=== PATIENT | female | born 1985 | race Caucasian/White ===

== ENCOUNTER 2025-02-03 12:20 | Outpatient (OUT) | payer OTHER, SELFPAY | END 2025-02-03 12:21 | disposition home or self-care (01) | LOC: PST 12:26 | PROVIDERS: PCP Family Medicine; Visit Provider Obstetrics & Gynecology | DX: Z01.818 Encounter for other preprocedural examination (principal); D21.9 Benign neoplasm of connective and other soft tissue, unspecified; N93.8 Other specified abnormal uterine and vaginal bleeding; R10.2 Pelvic and perineal pain ==

== ENCOUNTER 2025-02-04 10:51 | Day surgery (SDC) | payer OTHER, SELFPAY ==
[2025-02-03 13:08] VITALS: BP 130/74; PULSE 100; TEMP 36.9; O2SAT 98; BMI 31.9
[2025-02-04] VITALS (10 sets, daily range): BP systolic 106–133; BP diastolic 61–84; PULSE 74–98; TEMP 36.6–36.9; O2SAT 96–100; BMI 30.7
[2025-02-04 11:08] LABS: Basophils Percent Auto 0.2 % (0.2-2.0); Eosinophils Absolute Auto 0.1 10^3/uL (0.0-0.7); Eosinophils Percent Auto 0.4 % (0.9-7.0); Hematocrit 41.8 % (36.0-48.0); Hemoglobin 13.8 g/dL (12.0-16.0); Immature Granulocytes Abs Auto 0.05 10^3/uL (0.00-0.03); Immature Granulocytes Pct Auto 0.3 % (0.0-0.5); Lymphocytes Absolute Auto 3.5 10^3/uL (1.2-3.8); Lymphocytes Percent Auto 22.2 % (20.5-60.0); Mean Corpuscular Hemoglobin 28.8 pg (26.7-34.0); Mean Corpuscular Volume 87.1 fL (81.0-99.0); Monocytes Absolute Auto 0.8 10^3/uL (0.3-0.8); Neutrophils Absolute Auto 11.3 10^3/uL (1.4-6.5); Neutrophils Percent Auto 71.9 % (43.0-75.0); Platelet Count 376 10^3/uL (150-450); Red Cell Distribution Width 12.7 % (11.0-15.0); White Blood Count 15.8 10^3/uL (4.0-11.0)
[2025-02-04 11:34] LABS: HCG Quantitative <1 mIU/mL
[2025-02-04] MEDS: LACTATED RINGER'S SOLUTION 1,000 ML 50 ML IV (11:43)
--- NOTE | 2025-02-04 14:10 | P.ON_ITS ---
Brief Operative Note Date of procedure: 02/04/25 Pre-op diagnosis general: pelvic pain, aub Post-op diagnosis: same as pre-op Procedure: NAME OF PROCEDURE: [ D&c hysteroscopy] PROCEDURE: The patient was taken back to the Operating Room where she was prepped and draped in normal sterile fashion after being placed under general anesthesia without difficulty. She was also placed in the dorsal lithotomy position. A weighted speculum was placed in the patient?s vagina. The anterior lip of the cervix was identified and grasped with a single tooth tenaculum. The patient?s uterus was then sounded roughly to [? 8] cm. The patient was then gently dilated using Hegar dilators. The hysteroscope was passed through the patient?s cervix into the uterus. Both ostia were identified. fluffy appearing endometrium. No gross evidence of malignancy, no gross evidence of polyps or fibroids. gentle currettage was performed until a gritty texture was noted, The hysteroscope was then removed from the uterus. The endometrial curettings were sent out to pathology. The single tooth tenaculum was then removed from the patient's anterior lip of the cervix where excellent hemostasis was noted. All instruments were removed from the patient?s vagina. A sponge stick was placed into the patient's vagina. Attention was turned to the patient's abdomen, where a small umbilical incision was made. The fascia was tented using Tavon clamps and the fascia was entered sharply. Confirmation of intraabdominal placement of the 10 mm port was confirmed under direct visualization using a laparoscope. The patient's abdomen was then insufflated using CO2 gas with approximately 4 liters. A second port was placed left laterally, this was done under direct visualization with a 5 mm port. Survey of the patient's abdomen demonstrated normal liver and gallbladder. Survey of the patient's pelvic anatomy demonstrated normal appearing rt and lt ovary and tubes as well as normal appearing uterus except for a large posterior fibroid and the uterocervical junction. No endometrial implants could be noted, no evidence of any pelvic disease was seen, normal appearing pelvic cavity. All instruments were removed from the patient's abdomen. The patient's abdomen was deinsufflated of CO2 gas. The patient tolerated the procedure well. Sponge stick was removed from the patient's vagina. The patient's infraumbilical fascia was closed using #0 Vicryl on a GI needle. The patient's skin was closed laterally and infraumbilically using 4-0 Vicryl. The patient tolerated the procedure well. Sponge, lap and needle counts were correct x 2. The patient was taken to Recovery Room in stable condition. Anesthesia: RAYMOND Surgeon: Rik Ashley [employer] Laboratory Assistant: Mona Bergeron Estimated blood loss (mL): 5 Pathology: other (endometrial currettage) Condition: stable Disposition: PACU Urinary Catheter Management Urinary Catheter Management Urethral: Cath placed during this visit: no
[2025-02-04] MEDS: LACTATED RINGER'S SOLUTION 1,000 ML 150 ML IV (14:46)
[2025-02-04] MEDS: HYDROCODONE/ACET 5-325 MG TABLET 1 TAB PO (15:47)
--- NOTE | 2025-02-04 15:49 | PC.NURSE ---
1547:pt rates pain 4/10,PRN pain pill given at this time.
--- NOTE | 2025-02-04 15:50 | PC.NURSE ---
1535: pt ambulates to bathroom,voids without difficulty.
== END 2025-02-04 16:30 | disposition home or self-care (01) ==
PROVIDERS: PCP Family Medicine; Visit Provider Obstetrics & Gynecology
PROC: (CPT 840; principal; 2025-02-04 12:30)
DX: R10.2 Pelvic and perineal pain (principal); N93.8 Other specified abnormal uterine and vaginal bleeding; D21.9 Benign neoplasm of connective and other soft tissue, unspecified; N93.9 Abnormal uterine and vaginal bleeding, unspecified; Z90.49 Acquired absence of other specified parts of digestive tract
CPT/HCPCS: 49320; 58558; 36415; 84702; 85025; 88305; J0690; J1100; J1200; J1885; J2250; J2405; J2704; J3010

== ENCOUNTER 2025-02-21 14:21 | Emergency (ER) | payer OTHER, SELFPAY ==
[2025-02-21 14:24] VITALS: BP 124/78; PULSE 90; TEMP 36.7; O2SAT 98; BMI 37.8
--- OUTSIDE RECORDS SUMMARY | 2025-02-21 14:31 | XMS_ITS | CCD ---
Author Organization [facility] ion [facility] Care Team Providers Care Thread Puller Name Role Phone Maki Shaffer Unavailable Unavailable Maki Shaffer Unavailable Unavailable TEDDY DALEEN Unavailable Unavailable TARIQ Dale Primary Care Provider MD Isaias Stoner Attending Provider MD Summer Bolden Primary Care Provider Summer Bolden MD Primary Care Provider Summer Bolden Primary Care Unavailable Prateek Mckeon Admitting Unavailable Prateek Mckeon Attending Unavailable YuanSummer burns Primary Care Unavailable Prateek Mckeon Attending Unavailable Geovanny Feliciano Admitting Unavailable Geovanny Feliciano Attending Unavailable YuanSummer Primary Care [facility]available [facility] Yuan, Summer Dru Primary Care Unavailable Melo Hitchcock Admitting Unavaila ble Summer Bolden Primary Care Unavailable JANINE Carrion Attending Unavailable Rik Ashley Admitting Unavailable Rik Ashley Attending Unavailable Isaias Stoner Attending Unavailable Isaias Stoner Admitting Unavailable Marylu Dale Primary Care Unavailable YuanSummer Primary Care Unavailable Isaias Stoner Admitting Unavailable Isaias Stoner Attending Unavailable Rik Ashley DO Attending Provider James Stinson Unavailable Unavailable YUAN SUMMER Dru Attending Unavailable YUAN SUMMER Dru Attending Unavailable CARIE BENEDICT Attending Unavailable JAMES JAMES Attending Unavailable JAMES JAMES Attending Unavailable YING SHELTON Attending Unavailable MICHEAL MATT Attending Unavailable YOLI URENA Attending Unavailable MICHEAL MATT Referring Unavailable LUDWIG DIEGO Attending Unavailable MATT MICHEAL R Referring Unavailable ROMELYOLI Attending Unavailable MATT, MICHEAL R Referring Unavailable RIK ASHLEY Attending Unavailable ARLEEN, JAMES Attending Unavailable CARLOS, PILAR Attending Unavailable CARLOS, PILAR Attending Unavailable BRANDIE, LUDWIG Attending Unavailable MATT, MICHEAL R Referring Unavailable TATTERSALL, LUDWIG Attending Unavailable MATT, MICHEAL R Referring Unavailable TATTERSALL, LUDWIG Attending Unavailable MATT, MICHEAL R Referring Unavailable ROMEL, YOLI Attending Unavailable MATT, MICHEAL R Referring Unavailable ROMEL, YOIL Attending Unavailable TATTERSTEDDY, LUDWIG Attending Unavailable MATT, MICHEAL R Referring Unavailable FLORCARIE Denise Attending Unavailable ARLEEN, JAMES Attending Unavailable CLEO CARIE L Referring Unavailable Medications Current Medications Medication Drug Class(es) Dates Sig (Normalized) Sig (Original) acetaminophen 500 mg oral tablet (3 sources) Start: 12-06-2017 take 2 tablets by mouth every six hours as needed for pain Acetaminophen (Tylenol Extra Strength) 500 mg tablet Active 1000 MG PO Q6H as needed for fever or pain December 06, 2017 1:00am 24 hr buPROPion hydrochloride 300 mg extended release oral tablet (20 sources) Aminoketone Start: 12-30-2024 End: 01-06-2025 take 1 tablet by mouth once daily buPROPion XL (Wellbutrin XL) 150 MG 24 hr tablet Indications: Episode of recurrent major depressive disorder, unspecified depression episode severity (CMS/HCC) , Anxiety Take 1 tablet (150 mg) by mouth Daily for 7 days Do not crush, chew, or split.150 mg po qd x 1 week then 300 mg poqd 7 tablet 12/30/2024 Active Start: 12-30-2024 End: 12-30-2025 take 1 tablet by mouth once daily buPROPion XL (Wellbutrin XL) 300 MG 24 hr tablet Indications: Episode of recurrent major depressive disorder, unspecified depression episode severity (CMS/HCC) , Anxiety Take 1 tablet (300 mg) by mouth Daily Do not crush, chew, or split. 30 tablet 11 12/30/2024 12/30/2025 Active cephalexin 500 mg oral tablet (6 sources) Cephalosporin Antibacterial Start: 02-02-2025 End: 02-07-2025 cephalexin (Keftab) 500 MG tablet 500 mg 02/02/2025 02/07/2025 Active Chaste Tree (VITEX EXTRACT PO) (3 sources) End: 12-16-2024 Chaste Tree (VITEX EXTRACT PO) Take 400 mg by mouth 12/16/2024 Discontinued (Therapy completed) Chaste Tree (VIT EX EXTRACT PO) Take 400 mg by mouth Active cyclobenzaprine hydrochloride 10 mg oral tablet (3 sources) Muscle Relaxant Start: 09-24-2024 End: 12-30-2024 cyclobenzaprine (Flexeril) 10 MG tablet 09/24/2024 12/30/2024 Discontinued escitalopram 20 mg oral tablet (20 sources) Serotonin Reuptake Inhibitor Start: 12-30-2024 End: 03-30-2025 take 1 tablet by mouth once daily escitalopram (Lexapro) 20 MG tablet Indications: Episode of recurrent major depressive disorder, unspecified depression episode severity (CMS/HCC) , Anxiety Take 1 tablet (20 mg) by mouth Daily 30 tablet 2 12/30/2024 03/30/2025 Active ibuprofen 800 mg oral tablet (3 sources) Nonsteroidal Anti-inflammatory Drug Start: 12-06-2017 take 1 tablet by mouth three times daily as needed for pain Ibuprofen 800 mg tablet Active 800 MG PO Three times daily as needed for pain December 06, 2017 1:00am metroNIDAZOLE 500 mg oral tablet (6 sources) Nitroimidazole Antimicrobial Start: 02-02-2025 End: 02-09-2025 metroNIDAZOLE (Flagyl) 500 MG tablet 500 mg 02/02/2025 02/09/2025 Active nitrofurantoin, macrocrystals 25 mg / nitrofurantoin, monohydrate 75 mg oral capsule (6 sources) Nitrofuran Antibacterial Start: 02-03-2025 End: 02-10-2025 take 1 capsule by mouth in the morning nitrofurantoin, macrocrystal-monohy drate, (Macrobid) 100 MG capsule Indications: Acute cystitis without hematuria Take 1 capsule (100 mg) by mouth in the morning and 1 capsule (100 mg) before bedtime. Do all this for 7 days. 14 capsule 02/03/2025 02/10/2025 Active omeprazole 40 mg delayed release oral capsule (3 sources) Proton Pump Inhibitor Start: 12-04-2023 End: 12-16-2024 take 1 capsule by mouth before mealtime omeprazole (PriLOSEC) [address] capsule Indications: Heartburn Take 1 capsule (40 mg) by mouth in the morning. Take before meals. Do not crush or chew. . 30 capsule 1 12/04/2023 12/16/2024 Discontinued (Therapy completed) PARoxetine hydrochloride 40 mg oral tablet (11 sources) Serotonin Reuptake Inhibitor Start: 11-28-2023 End: 12-30-2024 take 1 tablet by mouth once daily in the morning PARoxetine (Paxil) 40 MG tablet Indications: Adjustment disorder with mixed anxiety and depressed mood (CMS/HCC) Take 1 tablet (40 mg) by mouth in the morning. 40 mg 1 (one) time each day at the same time.. 90 tablet 1 11/28/2023 12/30/2024 Discontinued (Therapy completed) Start: 12-06-2017 take 1 tablet by carson th once daily Paroxetine Hcl (Paxil) 20 mg Tablet Active 20 MG PO Daily December 06, 2017 1:00am predniSONE 20 mg oral tablet (9 sources) Start: 02-03-2025 End: 02-08-2025 take 1 tablet by mouth in the morning predniSONE (Deltasone) 20 MG tablet Indications: Allergic reaction, initial encounter Take 1 tablet (20 mg) by mouth in the morning and 1 tablet (20 mg) before bedtime. Do all this for 5 days. 10 tablet 02/03/2025 02/08/2025 Active Start: 09-24-2024 End: 12-30-2024 predniSONE (Deltasone) 20 MG tablet 09/24/2024 12/30/2024 Discontinued (Therapy completed) Problems Active Problems Problem Classification Problem Date Documented Da te Episodic/Chronic Abdominal pain (4 sources) Pain in female pelvis; Translations: [Pelvic and perineal pain] 12-16-2024 Episodic Acute and chronic tonsillitis (20 sources) Oropharyngeal lesion; Translations: [Chronic disease of tonsils and adenoids, unspecified] Onset: 04-09-2023 04-09-2023 Chronic Adjustment disorders (20 sources) Adjustment disorder with mixed anxiety and depressed mood; Translations: [Adjustment disorder with mixed anxiety and depressed mood] Onset: 04-09-2023 04-09-2023 Chronic Allergic reactions (2 sources) Allergic reaction; Translations: [Allergy, unspecified, initial encounter] 02-03-2025 Episodic Anxiety disorders (20 sources) Obsessional thoughts; Translations: [Mixed obsessional thoughts and acts] Onset: 04-09-2023 04-09-2023 Chronic Inflammatory diseases of female pelvic organs (2 sources) Inflammation of cervix; Translations: [Inflammatory disease of cervix uteri] 02-03-2025 Episodic Malaise and fatigue (20 sources) Chronic fatigue syndrome; Translations: [Chronic fatigue syndrome] Onset: 04-09-2023 04-09-2023 Chronic Menstrual disorders (2 sources) Irregular periods; Translations: [Irregular menstruation, unspecified] 12-16-2024 Chronic Mood disorders (20 sources) Depressive disorder; Translations: [Other specified depressive episodes] Onset: 04-09-2023 12-16-2024 Chronic Nutritional deficiencies (20 sources) Vitamin D deficiency; Translations: [Vitamin D deficiency, unspecified] Onset: 04-09-2023 04-09-2023 Chronic Other acquired deformities (20 sources) Contracture of joint of left ankle; Translations: [Contracture, left ankle] Onset: 04-09-2023 04-09-2023 Chronic Other acquired deformities (20 sources) Cervical kyphosis; Translations: [Unspecified kyphosis, cervical region] Onset: 04-09-2023 04-09-2023 Chronic Other and unspecified benign neoplasm (2 sources) Leiomyoma; Translations: [Benign neoplasm of connective and other soft tissue, unspecified] 02-03-2025 Episodic Other female genital disorders (2 sources) Abnormal uterine bleeding; Translations: [Other specified abnormal uterine and vaginal bleeding] 02-03-2025 Chronic Other gastrointestinal disorders (20 sources) Irritable bowel syndrome; Translations: [Irritable bowel syndrome without diarrhea] Onset: 07-25-2023 07-25-2023 Chronic Other lower respiratory disease (2 sources) Cough; Translations: [Acute cough] 01-06-2025 Episodic Other lower respiratory disease (2 sources) Rib pain; Translations: [Pleurodynia] 2025 Episodic Other screening for suspected conditions (not mental disorders or infectious disease) (20 sources) Ultrasound scan abnormal; Translations: [Abnormal findings on diagnostic imaging of other specified body structures] Onset: 04-09-2023 04-09-2023 Chronic Other screening for suspected conditions (not mental disorders or infectious disease) (2 sources) Patient encounter status; Translations: [Encounter for screening mammogram for malignant neoplasm of breast] 01-06-2025 Episodic Other upper respiratory infections (3 sources) Viral upper respiratory tract infection; Translations: [Acute upper respiratory infection, unspecified] 11-13-2023 Episodic Comment on above: Problem List clean-u p per request of Phys. EHR Cmte Residual codes; unclassified (20 sources) Hypersomnia; Translations: [Hypersomnia, unspecified] Onset: 04-09-2023 04-09-2023 Chronic Spondylosis; intervertebral disc disorders; other back problems (20 sources) Cervical spondylosis without myelopathy; Translations: [Spondylosis without myelopathy or radiculopathy, cervical region] Onset: 12-14-2020 07-25-2023 Chronic Urinary tract infections (4 sources) Acute cystitis; Translations: [Acute cystitis without hematuria] 02-03-2025 Episodic Past or Other Problems Problem Classification Problem Date Documented Da te Episodic/Chronic Immunizations and screening for infectious disease (1 source) Raised antibody titer; Translations: [Raised antibody titer] Onset: 05-06-2024 Episodic Malaise and fatigue (20 sources) Fatigue; Translations: [Other fatigue] Onset: 04-09-2023 04-09-2023 Episodic Mood disorders (20 sources) Mood disorders Onset: 12-30-2024 12-30-2024 Other connective tissue disease (20 sources) Ganglion of foot; Translations: [Ganglion, unspecified ankle and foot] Onset: 04-09-2023 04-09-2023 Episodic Other liver diseases (20 sources) Elevated levels of transaminase & lactic acid dehydrogenase; Translations: [Elevated levels of transaminase & lactic acid dehydrogenase] Onset: 06-05-2017 07-25-2023 Episodic Other nutritional; endocrine; and metabolic disorders (20 sources) Loss of appetite; Translations: [Anorexia] Onset: 04-09-2023 04-09-2023 Episodic Spondylosis; intervertebral disc disorders; other back problems (20 sources) Neck pain; Translations: [Cervicalgia] Onset: 03-26-2024 03-26-2024 Episodic Results Test Name Value Interpretation Reference Range Facility Urinalysis macro (dipstick) panel (U)on 2025 Bilirubin, UA Negative Negative - 4(70) +++ mg/dL [facility] Blood, UA Positive Negative - 50 Ponce/mcL [facility] Comment on above: trace Clarity, UA Clear [facility] Color, UA Yellow [facility] Glucose, UA Negative Negative - 1999(110) ++++ mg/dL [facility] Interpretation and review of laboratory results Abnormal [facility] Ketones, UA Negative Negative - 160(16) ++++ mg/dL [facility] Leukocytes, UA Negative Negative - 500+++ Hunter/mcL [facility] Nitrite, UA Negative Negative - Positive [facility] pH, UA 8.5 5 - 9 [facility] Protein, UA Trace Negative - 1999(20) ++++ mg/dL [facility] Spec Grav, UA 1.015 1 - 1.03 [facility] Urobilinogen, UA 0.2 0.2 - 12 mg/dL [facility] Pathology study report docum entOrdered By: Henok Walden on 02-08-2025 Pathology study [facility] Other C Urineon 02-05-2025 C Urine Mixed skin, or urogenital pascale. Clinically insignificant Normal [facility] Comment on above: Performed By: #### [id number] #### [facility] (DEFAULT) [address] [place] [address] Coding Summaryon 02-05-2025 Coding Summary HTMLBase 64 TegosvksYCy3qNh+PGh lYWQ+VG9GAFHlQ02wxN RbfA7dH3FVNSfTCneoV MQBTIaKUhOuaiZqER5o aXNjZXJu IC8+EN4gXLWkJehtgSZ iu3J7mKV2K01ran7xCN vzlRC1JDNdXjLnqtngv 1iuwPp3DWgjGafbRhRg OBQokJ53JVB9pN98Ev8 3gDGqoWOuk4xklXa8Lb QqLTQxPZN0rWelGWvgj 4BlDJBqZ94mdJUzq8D3 IGNvbGxhcHNlOyBlbXB 2mQ6zFJjhacmhz0fqpe pvQqw6vo00oBXih2U1e EV9B4DgycG2BNOanKBb PnwlsPDCzZ7erkupg2n vxmwaSvIhJGMxVGv2RZ z7IVDehDcbRaWaVV25U GQ5RYCksbGjG2ZkSLMr pQqrLrQ2s9V7Ej0PW9A JGmluI6JJOPUVFTemjO Q+IQ09zr02T1BwOwwxX lq1YSKgWVD9tVC8tS5r FFFyAZgmo9K3mFX9D3Y tfxWnrx4cj0pvLSJaVH moU16eyVBnd9F1NLVgm ZR1QJEseRzoTgCfmJ12 Oyc+SYCffPbrw7NaGgt ro7fem0kaxLp2YcptNI NlghEwwZftAGH7f9AlX k7uORRnzZN4kWY6mX2a OqEgDmW5OZmqY949ZvV efYErAmuqQ56jA9KfeD A+AVKfYsh6VQOycLgqM H4dA8AwKGPatiscjHMl iFugLK8jIGOwggwoUKG mbK2zRRZbV3r7VqQvVq Y3NUpbC5AvJMHrbgwtE b70cF7wNoVlQzB3CYnk A1WxpfL2VCNdiNAgUVm qIGN3L71dr9O0SAWkGG BfSXX9mCA3gH6vtXxwu jogbGVmdDsgdmVydGlj KIdeTGxcE855GKQmkUh nPkNvZGluZyBEYXRlOi AgMDMvMDcvMjAyNTwvd GQ+WJZqOXU6zXtyEGCx hJPfFOupIf1ewQtiyGg rHR4qYCHklodiQBBefW 1cCWDmsDAxjWeaUA9yX ZIhiojgl065WjEsYFT4 EXFvbVKqY9VgkT1mMpM xHSUhZSVyK5FebMXzUI ezH901EBvqFxG4UKQds pUyU0ErGTOruWafMmV5 r4O6Wu7Dm2RmvdwxI4C vjTWjCpIcIccmBCb3S5 RkPjwvdHI+NY94WPEaH A30EKn1NRY0iAgmVOja MUEaM2KrvO4xGkVmBOR kZGRkOyc+PHRhYmxlIH dpZHRoPScxMDAlJyBzd QueGS2mLv6bLGNbZTWf nYjtxTEjIcArp2dhTOA vPKtgXB9zrYfgO3YyvN D8SDEju5q4Yg28B76jO 3JvdXA+KSInvAQ8xDN4 bZ5yZkEnFjJ6CYtlT57 1ZlVtbFCkZmnyc8lzv1 rzjFu6BrN5QHSmxhTqa NczVPP5z4OoHa52K13z IHdpZHRoPSIxNSUiIHZ qtUuoxy6erR5qQv8+PG IezIN4sBL2cI7rTuLdH dN2JLdmS150CaAlkOGu Jzjcn7pno0sliHj1TwU jZYFnkxSejMtxACV3g5 QmEd85J2JafHybc3AyL zo6vs08mXLzz7P3rOY2 X1XjTNRkllmpvPItnYr nYO2vGQShlmgyURTsiN 3jKZQaV9s4AuQzTjG8J PjcU1ErjzD2WLPhtCNp VZUhqLIGpV4zpwuvd5r eninxQhStMTFiGJe9VO f4MPInfJprIxMaWBR0X jJ2EUT2xQLmhR8qjNfx cxepmE0qFvg+ZBC1bKD iyJDUYH5wJxljvKV+PH WaCHH6xRevAUdjUNPew A5hRZSgM3w8FlPdMaJ0 YQzaJ3QgobI9NZXrjNU nEOMjpLWRgF3ivxuro3 xtlxewVrDbXGLvJUk6M Qc5FMDgzOqzXrTiOKK5 EtW8XOF8qNUdeV3seTd mchdleJ9kHww+QmlydG kfYNO7ZYr1L4OxHot5X ULllHphPY9vhOFzVOss Sk3fkEkskGjoVS2hDEX hwpwvp896FxXvz8zwXG XsaRPnGWwkMGV5J38lj 1D5TFPaAGTtJGU5eOA3 eX8iyHspjsqxzXWnsKi gdmVydGljYWwtYWxpZ2 52WHXkmGjcXgYlMLq0A 4RrZbd3PKNkkBvgRO5o pOQjMZurSe1ftOcwrQi rAL5mANWtlyrho924Lc Cks2ciAXZdsERtZItzU BU6C21mj2W7RZXoWBGh PDF2uPI3eB5iyQdouij gbGVmdDsgdmVydGljYW rdKUvtG238OUPjdLhmR kEvzEk3K0ItVog2KEEt kLehGH4isHXnEKzlNe1 ytSyemYeeNC9bAVQcre sqr671RtUin0npQVIzh ADxECpfXCO0I69ug3Y9 QUYhSRWrIGZ9yGW2dX7 hbGlnbjogbGVmdDsgdm AbrAngKKghEEguG366D HRvcDsnPlBhdGllbnQg OFiyBCc2K6VvTuvnhAL +WJ55UGEcYQ08sVOduV Rek3jphMh7YrQiEDEqB QO6qRnlUQaub9WzSXUa G46ebOKmp5M0FMBhzQe xdRJvIiJtyPE9qB5yJU fddxlvk8yilnhiZxkvb 6qoyk45tA92O38xPWdk ZHRoPSIzMCUiIHZhbGl aqm7gzY4iPj2+PGNvbC Y6qVC3vS9sVEKwOeY5I IlrE707XyIaxSZrIwxl r5wck2jitPm0LwM8PGQ aghNoxUuzJKJ8r9RaRl 50L86vOResOXBkOWPcV MZkPZWnqPadoh7inB8m Ii8+PJUdvKV2oEX0qD7 wZtUaQjB2SFckG926Ce VdsJUpBmzmW41qI9Gka XA+RJMmArq1YARnnQty RN0qwWDwBDulEb3kQJC 8ReTmRwEkQYrxC6WjOB LhcdwhzqzgcBS9UENcZ CKjlR42Ih7mvFqxAXJc jLYBvP2ocgsjw4valgm pAaTxHEEiVDg6INj1JG MqeLfbJrFgPPN7XqL4J AL7mTSerL6ukRzmbsmv eO6wC0OgDBRgojaaPa1 2eC5yEaDsWtX3JXrnUh c+A6cNEGHXSLTCBIcXB 5MFFKPYXmdIDIbOPW64 JP45tUUjt1D2aSE4M3O kECCyysbjeprrwRN1DE PvZCProK51xRUqIDmqC y6uv2O8h407XQWwBUMj zG13Za7rfDsyFGByoKY PcS7fnecge0hkyzayHx DbCAStPQa0WFy0ZOZmk VdbOtVgSJM6SuJ7VIO7 xFXxrA0ovRssazvtyJ8 wOyc+KQEqYVVrVWb3Nw wvdGQ+XPUdEVY7zKthG OigJYZzlS7oNNMcU7t7 RwDkSsJ7PZrfC5ZwGQO sosnaVo31mV5qTuUbZd I5OUioM0WoinR0WGJle CZbOLfrUTL9L18ds8K3 YIPwTOAoZJO0yQH4jY1 hbGlnbjogbGVmdDsgdm AupVkkQIwfILljL337O IKeyOkiMgO0TUthOKJv UY72HP78kIKbl5L2dOG 8S8NaXLMbknrcdsjneL O5JGXjCIFpwA96sWAkD EhwTa9ks6E8j879ZVOz MODwrN86On7jkLfdHYZ aoVZApO3pathdv6tcdd gdXfHrRSBzFZa5CEl8Q GDksVdvHxYpYGS8XdG0 UMP4hPCeiY9qvYrafnr ymO2tJey+RkVNQUxFPC 47CJ02jDOnu3M7ySQ1E 1EpTCSpczhtipnoeSB2 PEYbTZPltV71pMQeMHy iWw1bc5Q2o198SIYwFL EwrX90Ry9ztXtsSGBzl ENGsI7cgqlnu7gcqdgq AnRsHSKoPJd1GDm5JCW abSahJnTmVWM0EyR0AM S8tUHgzR5yaVbmhpkrq G9wOyc+WQ4pvrtevaK5 FG24WP20S8TlVrkybOS ibGU+PHRhYmxlIHdpZH RoPScxMDAlJyBzdHlsZ N5aGm0yMWFyEEBnbTrj wTFkJhKvt0frPQRmQSn dXC2nzFokV1HncVW4LL Fox3d1Oj23R80fX9Xiv XA+JSFmtAH6iFC1wA9k IoEjNvU0UIncL023QxI ejBQgFvmpg8nzq1fzfP k9YyKoBFOqleCbtJotZ EZ8l7JfLi40P21oUIgw ZHRoPSIyMCUiIHZhbGl jfk3mdY3vMs0+PGNvbC Q2hHB9yY5zCqDoJsG9M CxuP909QtTpuTYbHrst M97nG4VrtCY+PHRyPjx 4WCIwxRkaVT7lyJSzUU iaGe0cQLZ4SsZeCkHnX NccK6UiVZPgvzbdohbd iOX9BKAjCFRlpT83Oh8 hlVqyTn5rGMYgKVM3PW JczYCfX1IobC8rQrBuZ QXnJKVkD8FekZWhRQmh P214MOtdTuV2FWVwgsH iX5WaGODgiHviAjG6c3 G8Ak7XlCmogMBgAH9rH sTnCZm9S6HeEpa1FRWg dFxzXP8pdFRpSKdePc9 bfQqjkQizVW7jPXSxwq enx114LwFgp4aiXJMub YCjVRkuVQO9V12zv8K7 BFOmFTVrZQX4kKD9wG6 hbGlnbjogbGVmdDsgdm DtzHnrIDwsTIfrW070U WKgqQoxQlJWTbr0L0Pl Mfe7YECkyScxDR3mbQX gNAmyOf2ohJyicPzvOE 4dXWKemfpxu322VjAin 8eeIDIkiXRaOHeoFUJ8 D57zf4X7OPIuLVZiLSU 1lJX0dS4zuWtteqkiaT VmdDsgdmVydGljYWwtY QjyY901VYFdeYozXh6Q Hsx4Q3ZhBrl4YIOiuYd qXT4ehNAqDDmrYp8tsC fhxIiuFJ2uSICingbbu 645MiHax4zmZFUumHKg YMphAQE0P50bp0Y7FJO pXVBhOVU9qGE4lC6pgW lnbjogbGVmdDsgdmVyd VchRZkhTAgmS195YYVg cDsnPlBheWVyOjwvdGQ +IM50ol96M1BgPwihWi k3IYAsCJT8xFX7tM0rR RWgMOqwg9P5nCJ6K9Yo cmR (more content not included)... [facility] Coding Summary HTMLBase 64 MyyxtfsnJEz3pPu+PGh lYWQ+YR6VPVSuX40reQ ElwH2dB9BQISaGHnxqN ZTSFGtTGsMuyiXmVB1x aXNjZXJu IC8+IE3yZDSfNzbxsJD fk2Y2iPM8J27ouw5pGA jlrWZ3IHXyUaXlkrhjn 0kaaKv4RGxhUpupDwNb RMFljC26CJI1pP91Cr8 6iKVwdMMnz7kptNw2Qw TzOXMuVAU6qPlcHUeyr 2QaVCYwP62gbYDbc1G7 IGNvbGxhcHNlOyBlbXB 2vT5jPBbxyyygo5izaz tmCsv3mj17sQEll5J2q EM1R4UgbzP7YHCwbQHp AiacoSHKpZ9wynvdz6c pgvccDcObRUCvMGg6BM d2GMPeqCgeNzAkXG16V NS0FHCsxuUoL8BgTROi uBysQqM8n7T1Ig6YL8O HVblgF6UPGLBSYPdwvW Q+HE52av84R1KuWtymN tv3XASrNFZ4qBL1cT9l UERxYNqxe6E1hLV7H2C qcxKgzh2lf7msVAJfVP bbK62imYCwq0Q5YEOun UK1LPJibTeiNuFmnR75 Oyc+ZIRkmLokw2JqVcu gp2vly3vnsFb7ZyfeOO TsbqSxmPchXCD7e4QcG p5lPKHkgDZ3tSP1xX0z VeBzWhL2DWydN036DhF ygKHaFkesQ87pG1FkdF A+DNYyMkf5YDPanKwoW Y4fY9LbGPHrxqhyrQNn lMczJS5bIRWtuvkfWKK nuR3kWYVpO0f2SoEeEx A9FKdbB5WiDINtccswV n41gX6cQnLzFsG2ILag L1AmjlO6RNGclITkXYu uIXH1E86gw9Q7KTTsLB JeBYK3rMH0sO7lpOzvy jogbGVmdDsgdmVydGlj ESwgPUutC923UOIexUg nPkNvZGluZyBEYXRlOi AgMDMvMDcvMjAyNTwvd GQ+LDTyDKT3jYxkIHLa yBYbYGuiXu4umHpedFf cIT0lPZNbnwwtDOFozS 3cVZKxqLVzdIkcNC9lP AHfzxauc463SyMxYPY0 SKHikKJfN9QxlT8gAmB qQDQzRWFfT6WyhVLjUX rvZ263KKjyBcS1SUZzz qIjZ7LwYDKyoNpeXaH9 h5Y0Ii8Ul7HomflrS6B qfELyUiVbHtcjEJr9O1 RkPjwvdHI+EB57HHDwI L01AFm4FTH5oFkqBDrz GNSqK4NviD9zYmDsXXN kZGRkOyc+PHRhYmxlIH dpZHRoPScxMDAlJyBzd IciYT6iEc4nVKDoZKXd cIcooHPfMrZav2opCLW rABsfFC5drIotN1OgyS C7LILin9f2Cn26X03lM 3JvdXA+XLPcsDY0fRL6 iC3zObXyBgY7OVyuK25 7KoBceQGaYcjqx4ohw3 hikYd5EzW9VYFfhwIyz PypMSL1s1LuTq57H68j IHdpZHRoPSIxNSUiIHZ hqBtvwf4shW1jTr9+PG EerJC3eNU6pL0nPuWfA jO2WIfbA474GjYqsVEp Krhae0klh3objIv8FaE jXFXqxbKliVreAPQ0x5 RuFq28I6UxnTnyc5UsN hf4lf36wYPjm1B0nOI3 J0XrSVAvgoeuoQGzjOb vTS3uZBBhlmavYAUlgD 8eVTKaH2a9XbOjGlA3J AlpE3RkpnQ3XUDinBSc RFOtyVPCkM5reaivg4a bjbqiRkKqJJJbKPo6ZK h8ZHCnsXweIoHlRLJ0I dJ2BLD3eESgtN0epRni taemzI4fZjp+ZIO7dZD qgOOISG8uOndrcBM+PH IsQPM0hGrjLDpjMHDed Z2rOHAnX4t7NeQcYsJ7 YMjoF6MnygX2JFUwjUX rAWMreTCAtB7hwbiqa8 xzsdpgLqKtJOEhQPb2Q Fw1TTMdlNncAgQlHZH2 YjH2DXV0tZBwdB5wdFi jcpbbjB6bGwn+QmlydG fbICA9MHq8A0FfIdw4O EMgfGifBV9irYEgCHna It9khFzovLcyGW6iEMK ucdmuw040AfWjz7ucNF MkkZFoCYbdZMW1C81wm 7J7GLDlQSEeBIT4vVW1 wS2pfOfammgjyYCztGu gdmVydGljYWwtYWxpZ2 50MIEexUdqEcVjFUj9W 1ByWkc1SKRlpDboGY7v rJXlACnwDz2qcCydiQy qZK6uACKfgrnvw824Kx Gfm7ghMOShrKYwGKedV AO1Z27il5V3YENxVXZq WBC1hFN8dF9svRqagxy gbGVmdDsgdmVydGljYW uoRLteG163PHWesVslV lSmsJd4B4BkFlm9QSIa qJgrDK8dbVNeGUivDs8 tuAnidSteOJ6jTBMflt yjt054VcVaz7zfYQXqq KAqJDbvJVA1Q65xu4M2 KSSnHBChQXL6dTL7lG4 hbGlnbjogbGVmdDsgdm SmvHkdXIuxVNzwV897J HRvcDsnPlBhdGllbnQg QKpyWBt9E0FpZnolyZZ +ZO49PGXxSJ13dZEwoF Yig9zsnRq1XnZiRCNyL OO5oFxxQNkwz4CeXEBc Z47lwMEfq7V3RGDwwOq skZIlTfRbnWR2tB6jWJ qqmljws0pickaxKbghs 6qafh70zM52S10vGPbw ZHRoPSIzMCUiIHZhbGl dch4tzQ1lTc7+PGNvbC Y0yDQ7yX7gWZJrOlB4M MxrC646ZtArrWRxTzrc j5mto6hszDh8VgE2LJU vvaLkhXtuSCL6o4HlZw 60I46pYAtnLWOwUKReI GFiNCJfxQznvi5lbF5y Ii8+IELlrLA8oXS3rL4 oEiDdEeJ7RFfcH399Nm GcfOZmRrvxC37eZ8Qpq XA+UFCuQhc1DIGiiNdg SE3lnYPiSZobWx2qSPU 0FxYmRiXnCRjcS4YvSA ZkuzopzpcztFX1LUSkS YSnxP83Og1clMntFUKq yWXYyN9uofwyb1veonp gKfDdLUPdDIe1CAp9QH DmjWvhRiNuBYK5IqB4Y AM6hMNflA8ukXeiapfd oO9tQ3YvTOHlupyxQf6 3zS8iTtHjRdI3JTadZu c+Y8uBDMKUTBRKCSpIV 0ZULATAUhvTGTrBYW06 UC88mJJrs3F6nOK8G2W zLHBasblmniubwEW3VF OuVYJlzT77aDKjTJtwZ e8fd7Q3p942VENkJEOm sP75Ou0ffAvuBRIlfLW TjH4jvybay6gvsqnsFf DyXBVdYIa9ZEx9DSYef EtmVaEsYCY2ZsJ4UTT4 sSMaiN4esHkyforpmS0 wOyc+CNVuYQFtIJp1Fj wvdGQ+SNQvZQQ6zItjD TheJQBmjV7bYFXnY4h8 AtLnMdZ3CQqoV2WjKQQ igumpBz84wW6jKgXyRn U3HLrvS4JwqiI7ELFff EEyFDdpLLJ8A05mb3V0 XFSrZUGiPSE8iPR2iV6 hbGlnbjogbGVmdDsgdm HfbUqsKMtqDLeoX869O YSszHdgWaQ7JNvvWWIn IO86JA76oHLai1Q5tAV 0F6RjHPDmjlijxorleE A3NRGoBOZswX42gBAlV QtsTf6xi1W1t132MDFz OQTonH97Hp2laOmcGYA vfNWClE5yrqerg1rdun waWiStKZBwSEv2EJg6W GJhcPfqCeSuFTT5ZgY5 EAW5jSUzrQ5dvYzjjhr jjX8jQim+RkVNQUxFPC 72AV68kWCwj7T8uCN2I 9FnGAYxafwukrndrYC6 ZQFoYCStoN35ePIoOQu eDm1kf5G3k309RMOxRO NctX65Nz8ncUmuNRKyl HPXaE6zajltw7avwris EnMyPDFrSJn8OAs2QFD rwHpoXaVfIBA4OwT8YG E0fJLroS0zzGkivwlad G9wOyc+AC7kntpwzpF8 EA43QX49E1GxDrvzuWK ibGU+PHRhYmxlIHdpZH RoPScxMDAlJyBzdHlsZ M2kEc9iTTThHBCayRix mBWhRcJdw4zdZDOgCZg yHS8oyZklI5QuiTV3WT Pwu0b4St97E98oG4Mgo XA+IAYmxPT8rXM7rW5u GkFdJyB4XViyK569ZuI arIAdCrnej5dsb0gdmH f7IoRbMLDolpCswAejZ VV8c2VoWc96W51qKVix ZHRoPSIyMCUiIHZhbGl tdk1djJ3gCw7+PGNvbC Y8gYI7oH8pSmAoLmQ1K SwfI782RlDgzENqRtuj J22vL2JdiFI+PHRyPjx 5MVWzgYtcRY9qqKGlHC vwWk7kOYW2SnRsMrPnL EyyR8DoBZOkykeoncnl lOE3EOVjOQBrrI63Eb6 jmXbmGw0sIKEjWAY3EQ DzbTUrJ8FdsZ1jHsFkL UWeVXSeE9CaaBUcOCfa H626CYowXzF0QUElekC nZ7WcWXFbpBmhYaB1p4 H0Ol1TkPnlaETpXD9pN mGuXRt3C7HiEam5EIWb yFheIG1hnEVqKJysDg1 hiZopjZrgLW5tPCKqos fsd333JlSxt7goERAlo ZCmTIzzISP1T61lo6F3 HAOwTYToOCW3aZT2eI2 hbGlnbjogbGVmdDsgdm NdzZkfVLybYZjvE586D OOvnKuaBqKZGjc8L9Pu Mzu8YHCdnMbsDP4boAE tGGzgIn4xdAizvBbhKF 3mIHAibcrer079YyEcg 1afQVZstDWvXXbsMXX9 A78jo7U8OCDnZTGuBPB 8mSV6xL7upEnpvhgiuF VmdDsgdmVydGljYWwtY GxbL985XKTdlLxfVa2K Obw8R5AkRlx0KHJpnFr vES4vyYIzJBuyAt4oyH knlOiqZP7cXYEqjlctz 002QxIzp6yqGDPxkPAz GZccGMW6Z39qp9Q5AHV iANInHPS7lYX7pL3vxC lnbjogbGVmdDsgdmVyd JkmXRavKYreP101DYKk cDsnPlBheWVyOjwvdGQ +BF76bl56Q3JsIdbxHw z6KVSdNAJ5hUY4aK6xA UImRImdf2W7uGG5O6Kw cmR (more content not included)... [facility] Coding Summary HTMLBase 64 XqxmhgbrLUk3sWj+PGh lYWQ+SH4BUQBmK88cqT UfdB5xL8PCKXuTZnjnE LIQVEaOGvDvpiVqMG8y aXNjZXJu IC8+GV4eLVZrRllknYP pl8R8xFT2R46xjr9jQW vobQW3DQSfLkNvvbexq 0pwcHk0USbiYslqZtZe MGKwgI49WRA1oL95En9 7hSIegMWcg5kxsDq4Tr IyZVLwWPQ5wDfvETpfu 9VvALUdQ33riUAse7A4 IGNvbGxhcHNlOyBlbXB 4zW3jFQdzttjon4saxd jeHvk6av90vKUia7E3r OM4P1YkhtB3ICNvvWWx HvjrsGIFzC1qgaffp4c gyobmKbHjNOGmNUi5DL f1TKScgIglAjLwSN37M MW6JDNgwmAjG7EjFEDq yTvpCpA4f5Z0Zq4SP3X PKuvgW5PGWOCRHOajpT Q+AZ44ok92C0NtAwoyN bv7YTGaHXY5lWD0oB8y HVAsCIcqj0P4vNV6D3G vtwDfzv7vb2ujOTFnVV vvL16onNRtv6H6EGMed PE7QSEyoNfkSaVcsN42 Oyc+OKIpfKlqg3UbPln cn8zwr0dmwNu2ZhuqYO HmrkXpqReeRNZ4u5OdS v2uJDOlpDR1eKP6uW9k KcVuRrB1VWwdO234ThP tzNBqWvapL69uE7QrwL A+BPHbRzg3FSNxlZbpW U6cS7TzMXBfuutgnFMs yAmqII3kAIWencdiFCO fjV6kNHJyJ2w6RkFlCh L6SSlfU5OhMTIvvwwcC a12gV6bNbZqSmH3XKvi N3CyqdY5NAVbrEZyIOx iIOQ2O11sm5S3DZHrVS BxTAJ3wME2qD3ycAiks jogbGVmdDsgdmVydGlj TMyvIEmgU186TKLzlZj nPkNvZGluZyBEYXRlOi AgMDMvMDcvMjAyNTwvd GQ+TMDrIXT5hDjxIKOp tVKmJPbyNk8ymRftnZw iBR4wSLAszjxeOTNjcF 2lVINxpXYqbOgrSL7mB OPzwejmo118FzXgVYU8 KDIhjOOrQ7GdmP0hKkO vYRQvZCEeY4FqnHHpRW qdT312WNyiIlQ7OQWxy iEmG5GqMIFcfTfoBlS0 r4P8Rv8Ei7JkbtrmB6U pzDLuQoXhCvplFEb8Z7 RkPjwvdHI+TH82JOGxS V23CXg6RIM0iSrgGZpp JILsK1XeiA0rDzNxLCH kZGRkOyc+PHRhYmxlIH dpZHRoPScxMDAlJyBzd MmyVU7fCc4yFZYmGNBc vHclnONjCiTtn7djLFV dXDzjFJ0akMkrG8UkoL L9HXKrd6d0Uz63H26vV 3JvdXA+SERinFJ4bLI2 tX4fYiZkJwM3UUygA19 7QpTpzAZyBmbkr8dtr1 dmdUc7GjW8OONqdaObc TgyIFX9c5ErCk11S32j IHdpZHRoPSIxNSUiIHZ frQsegv5rtY2nCu5+PG MpiAB3pOC2yB8fQxAwR bS9WUdzK046GmLgyWYb Gnomp2xeu0sdtMq9NgH cCYIupfYgyYrbAOR0n9 WvLp35V0AnaHcgx4UcS vx6zm78gBZcd8M5qEY9 U5JnXRLspsomnMInlHb sUU9tHLFumdtmFAXioA 1cLUMqX8o9MnAdUyY5O FkmQ1IuerS9KERksEBg YESsuZZRjS1zqwinm8t tumylItOaTJLsCFd6QI r2HCFmfDqiPnJaASS1W pJ0UWP3bYIgxN9pkEkq dtozbN0uGal+FYB4bNX jhRQXRB9xKktddNA+PH EzLYX2cPpbBGpnDYMaj P0vEVGyT0u7LmFkOvM8 GAmjC8IvzyQ1LFDpuXJ uXXBsqSMUgP7bemrjy5 xbfwzjXsRpJYFcWSe9W Qf8BTJyxZsmKpMvTMS1 GkB4UEF9mXYxnO6gqVb uljnhaP5dGnf+QmlydG jlORL0HLt1E3TkQws1P MEqePjcQL4xoYCsASsv Of2maIxyeJgwKV9hCCD wgplxu294NhYvx6clTE WclBQaGZpeLMY5D44yv 6C5PWWyDOBbFZT7kNF2 tG5kkUvoyhudeDOasCa gdmVydGljYWwtYWxpZ2 83IURlsZqlTgEnEKf2T 3VvBda6MJIrtMbuHZ0d qNGxPCuwQv5oaTeyxOh wDZ7bVHGgkftck118Yq Rie5raOYNjzRQbPOzbL WF2R09ie7C5CHRnSGTy HPC0tER3aL2mtJaorhi gbGVmdDsgdmVydGljYW twTJjmO796CDFwcYjlR vRiuTg3N4EuPyp8SKEe yLukKY4deEVjHJquTy3 xjMkbePbjWC6sCPUjok zle002JyHxb9dgSKGva OZmBUsiBOF7T57pt7D2 BNCnUTRjNDF0xXT1cX0 hbGlnbjogbGVmdDsgdm BezKbmNGldMZiiH484G HRvcDsnPlBhdGllbnQg RRpqCXg8H9DkFqwcvIS +UZ61RONwVU55zWXnoP Xkz9nmuQc1NsMbIDSkJ KD5lXcsKJovk6CjDYIl S05peNAgp9U4JSRfqSd rtPIoGgUokHD0xJ3pAN yqmhvyj9gqslyxNkhni 4wlst24bM55A22fQLhg ZHRoPSIzMCUiIHZhbGl vql4snE3lBp8+PGNvbC C8oLB1aH3oSOCyVyW9H HlrQ251ZlTiiMPdLnqr t6hze8tblSq8UeP7GRG ejkXncMdrDZX0b3EoDr 47D17dFOwsPNJdLCFkT OJjWKBzuBszxh0skP8o Ii8+YJPehTL1qKW9aB4 tUyHgMyS4PUxiY440Qo AriAAoImqsY13eV6Sfi XA+LEQoQhi7UHIivPfw ZZ2mqZSyFIyuQo3pMHE 3WsRhJtIoZMnpG1AqPX ItrtfhzdgonJS1OJLwD MQpfT13Oj3gdFhvVGGh lTUZzO7pilclt0yioan iNpMxDQMzMGx6XWh6DM JouAudVqIaWPP0DlQ9X AA6zVSptS7wmEpgkzsz qQ9nH1QmFWSsxmzrTr4 8nX6nZtRcJhT5UVebIg c+Z5nTOMRVSAEKWCrRA 7EULJCCEorTZOeCGC87 MF41bVGiv0M6wKB4F8U mASKcxepfheqqmDZ3OP GqFOVmyE53rXSiGEugM a2aq8F1z196UMMnAJGg wN11Bo4rpOwkRJBptBQ BpD4kbaibs5llkimvTb FxOJUpJHp0OCi7LUNog BlkFcFmSLZ7QzD6OYD2 aAWrtT6ypKuleqpokL3 wOyc+MPNcVGNbISz7Ec wvdGQ+PMMlSYZ1jJwgJ JpqPXOfdZ3jKCDdC8i8 RoGwFwZ3COwiR7JrQFX sjyzpTb33uX5eBdTxTm Q6BOuzT5MctqU3PDPjo WXqLHkjZZG1D14xg4X6 TJJbCEXpUCM4cTF6pR3 hbGlnbjogbGVmdDsgdm WubTrsYDraUEdxS609Z HPpgKlzIoX8IRhtLJWg CY46JX97iKJda7U3qEQ 1I0OlDFPfmyymoxwqfA P5UEUdMMUizI21jONqF DhgEm8pw3Z3e378TXXb IXMwrV25Wu4jpUwaDBC hjTRUrM2lsjeas4lsxh yyNsYeZYQtFMz9SBw5V SHoaEgrTuWaAKI9WjS9 VLV7uBFkyY6agJmfdrt zgO7dOuk+RkVNQUxFPC 40IE48lNMdq5V3wVJ9M 6XlTGQfbojtxcmirBA8 VAJpIEUilU67dVRkROp zLf5of7U5y155XWJqDQ HkgW79At6mmXftASGyr SDIlY5ddnvrc8diwgbx JsJeZLVeFYy5JQy9RLN hdToqCuAhZQD2JpE8LI P1pQDooW8ccTwoaskqh G9wOyc+PZ5rmblrvoU8 PB43KX46P4UeJvbnpWV ibGU+PHRhYmxlIHdpZH RoPScxMDAlJyBzdHlsZ D2sEf1iSNXgAAWivSfm eQKmMqIdv5ilKXVeJKd nQI1umEqmM4NfdGV7UO Hpr3h9Tc47G37iR2Fbi XA+KFEodEO5vZK5vU0y JyEgAuR3GJjjR373NzX ctEDoVbvjn3kdj2lpoC g2FkJfNEEttmVboIicO TJ9l6FfBp95G70xQPfb ZHRoPSIyMCUiIHZhbGl ehm2aaN1lZt6+PGNvbC M4rAU8iE7uXfRvQuU1M RvvM421DhMoxLGzAioq U52gI2TtdQI+PHRyPjx 9RWBxkRkpQN0jeDMrQV rbVf9fVJD7BbNgIsSeG QawA1UuWGUagncvcghz zIX3JUKeUZEgjG29Pl0 kwDnxVs1tFXRrXKV1UM PxpCNfV3IiqC3hJnEcG PSqHFTqH5VjvZXxVDjw X353YKshSpC8ZVQyjvU iX7JdHFSulKtpEyF4g6 N5Vw8DbWtfnFPuXQ6bD yYiJQt9R4XjLdx4LOJh rDzeZM8ppQKxHJbuQq6 hpIwkeJmeOG6tJIDfjn lxh477ZdGnz4cmOJYqr APjGNurBXX5T31kn6A1 HHFrVJWsHVB8jXI5xK7 hbGlnbjogbGVmdDsgdm KlbOsmXBhiIYrtI542A ZCwuOonThYHKxr4B1Fl Mjb1OHYvgHaaMX0wpOA oSCnlRr9ldMfdkKafIO 5sZVAcyccpp477SvHii 0feFNWksZBrQZpsQXA6 W43eu5L3TVIwAXTcUMU 8dLA2xT5ajSsfvcjccD VmdDsgdmVydGljYWwtY OupJ628IZHonDuyGr0E Hpm4M7GdFsv9FQZsqBv lNE6nvLQwWTpeXp3pvF jgzWnaJM0nOOUrgzymx 994AuIib7acYWCmkCPx XZauKCI9V17ur6Y8NBG rPHHcGJH3dYX0cQ5opA lnbjogbGVmdDsgdmVyd VfhZPjqEKouH194LQCo cDsnPlBheWVyOjwvdGQ +VW82ml15W7XwVacmHu t3AWLjVWK9sUT0qH2iQ ORbGTmgc9B0qKZ7U7Yx cmR (more content not included)... [facility] Coding Summary HTMLBase 64 NcribicyIRn8mQh+PGh lYWQ+ZH1BJDMvH79bpJ YanI5yV1BSNUeVFsmeA PMWYYdBWzLwdtOgTL7h aXNjZXJu IC8+LN3eJYWqRbguwQH oo9C5wZC6R18byj9yGR vorPK0PMDdEfKmyizii 1louXz9HDnvXvkbLgZw BLSvaY00CLB3yT90Fj2 3kDCtrGDnc4rxmVo6Lg CtQZRyTRX0rZgdEPnsg 5PoKGXlC22toLNdq4R8 IGNvbGxhcHNlOyBlbXB 6lE2rUWiyvkuwy2uhvp saHrp5od46mTZwm7S5i NB5G3AameI0WUYvuUDd YgzuzJFRvF3cfbpcq7b nndlxJuBrWINwGVp2PN u0GLXneZnjKrXyIU19F RR9CVSaomTuS9MwLLOq jMhsOsE9x8F8Wg1IN5X FEyeoB1WSCWOVDEeivE Q+BK37ju36G5TaBpocA dk8KKEeGZV9aUT5gC7f CNQiZNtlw3P4rHG1W2Q ummMiqv7xb5myNHRuSM nxQ16auATdl8N8LECsr VM1SRYtmYzyJoSzcM73 Oyc+IMReyUwua8TdMwp df8ciy1dmoXm8NcbnUG ZgjcQvaIwtKDL5o1CcB e5eOQEnwIL7yJV8fH9l PuWqUaA1WQtoS290ToU vuZDnZhszO03qU8QhoK A+KIInBbz6UASvcArcQ N7nE5YqDVVqejsuqFAz tGsyNK0mGSTqglnjWYB lrX1uDZMaX4n5YhJhCl I0AXxzL1XrDQWgrvlzV u35fV2mWzUmXpN5KEib O5AzxxU4KMCauZXqWBh hDDD2E18vw2O4NBIyXL IlDHM3nNW8fE8fhZkow jogbGVmdDsgdmVydGlj UIxyGRemE419VSOzzLv nPkNvZGluZyBEYXRlOi AgMDMvMDcvMjAyNTwvd GQ+CSPkEJM1nQrnPVPs xKEuTZqiUa6wpHfrjIe oRX3lXYZlvdpsPSRuyV 9oKXFyzYEmfGbhJE6zI RHafykts708EbBlIUM0 WAWkzCPjC6GmhW4wJvY nISMiSKNbV6RbuSBxCR qlP780JGmqLmS5CHTca lGnV6BfPWDuxWnlTwU2 k1Q6Dx4Pk4HrykdrX5M jyZRcCjCeWazgCRx4B5 RkPjwvdHI+SZ22BVRlC F43SLy8SIN5uMalXOym KPCmR9LzsW5sSnPeAME kZGRkOyc+PHRhYmxlIH dpZHRoPScxMDAlJyBzd PozPI5jVj9sJIFsPBPu nOletIFqWiUqx8szOIG pFJpjYI1xpJfhE0GsgK F7HZEjn8x6Ov69K87kG 3JvdXA+FUAqbNO9vAA5 hZ5aEgCfErV8PKspP02 8RzAaqGMvUgjsp5pxy7 exsGk0BaS0FELsqvLmx IveAPB1k3NnPj25Z35q IHdpZHRoPSIxNSUiIHZ pqMdvag0pkO8gMe4+PG UoeXQ6kEK8kH9lTxGaE wI4HJyjV778QwTotDWp Wngxi5mdq5ttzKm5ObQ tCSPqraNwaCqaOCP5z4 ZiDh18J1SbdLgcm3YeB sf7oj81nZBbe3J1zWI7 P3XlLZGrhpgrfOXxuFp aLK0eILAaifbfTTAqkL 5xPANfU6l7FrXzPiV1B ChdE9OhveC3FECxmYXm ERJtcPDYdP7tlvngq6l rbasyYqXqZOVcHNj7AT r9ULLsiYbbHzKlZEX5Q oE0VER8fPBhgB4leJrr hcifpV7vTgh+ESE7oIX omCNBDP0jZyytmMD+PH AgRXO5eVtxRMyyRAItg K1kBXEkV1z2SzZkIuY1 GFeqZ7FcgcC3FZAtvZH tTLHtgZQCkT4orjbrq5 ccrxadAvUxSNUrIPo5N Re9VZCqeNbbNlFgETI9 DhY2HQA5bDOtlU6uwAj tsinwzG2uHba+QmlydG kaDYO0LPz9B5OiXim1T WOgmYjwTT2pcVPiLZjr Xn3efYfwuErcHX9eFYU mfkbco045LgKyn2erYP UboXMePDphUTF8P04sy 0O7EMSwNNLySKJ7eRN9 nY7exJtqahvcoNUyzAg gdmVydGljYWwtYWxpZ2 50VOEhcQoeYtIuYWd1P 1SbFoi8RBZgbJoyAY4o qBZcUAriSl3wpCqejKj aXN4fFFRradvzw450Ot Nfy6xhBKBbtBVoCIopP CU7L21rt5Q8EGMzKQTn IQL1vSH3nH0xePpaykr gbGVmdDsgdmVydGljYW qzBUjzW951CDLweHxyL dVlbDu0B5TuFbh7QUBw kUngFJ8uoRHbQHezWu3 tqFrmzSfmAW2lCHSdjw crg436RnFoc0bbYMWub MYjIEplKZF1A47sp1Y1 QJOrHMMaZWN2pOP6nS7 hbGlnbjogbGVmdDsgdm YqxKzyNTvsARofI956K HRvcDsnPlBhdGllbnQg UCkaGOt8U8PeJliioJZ +GR57MVTgXY90xPIjdM Zwy1ctxCw7KfZpZGPsS IP0zPiqLTrfq0LfZVJx V21twWLfq5A0KYBmgSl viHVaCoLpyNV2vX5sMM wiytyqm2xhqxpeRrssz 7ghxw71iC70M10nGQcc ZHRoPSIzMCUiIHZhbGl loq7ruA5tHj2+PGNvbC F1gEB0sJ0tVWZeXrC8I PlxO578ZdGlyZViGbqt q8eai7jlnPx5HhA9RUV kiiUyuMmyFUK7d1LtFz 19M27nIMikNKJtCVOqV BOmUUEepOixov9rvT1u Ii8+SHTaaBD9aXK4wY0 qQnEpMtX1JLwlT249Cg LyxFFkUqfiT37uX7Nfj XA+INXsGxo5MAHioPqy XY7pyZKlAEmvPh7dOLA 0NvPyNgVvIFmnL4HtMA GhjihwdipsvRN2LYZdT HOxyV96Zq6phKlyHJAs kAZVoI0bvjffa7lvtht cYuQpIZWkFIu3PZx7JT KxqLzdXjDlBIS3AxG1J YV6bFGnuT4uuUbxzfgg cA4gV0UlPGFczqnqPk7 8bU7jTxSkShB8IGriSn c+I6sETCTWATPROEcUA 6JDBQPZRzvHZSjARI46 IT15hAOfk2R3uLI1C7F oDBIikpoukqbqiVA5DG NqVOHqaZ51yPBqVSroL j7dd9N0a621DDHaQGDk bT03Kp6bnYwfPBAweCK JmX2hfadnt2mxacweEb ZzRKNdIZv3ZBs6NNQiy PecIsZwGAW0IeB1PCU7 vQQhvY2ibBjklubxqN7 wOyc+EMRzZERjCSv5Ix wvdGQ+DMPcFZN6hOfjF JhhQGIgnR4rZWAmA7c6 MxGiOwD3TBasP0PxCEB tekdpFs69qO6fEaTqOw J7RNqrW8KiuaU5BWWsl IDmEOqxWUX1E82wz0P3 LSYcNHAjOOG0yUT0cD1 hbGlnbjogbGVmdDsgdm ZqvHnvQBnwISoxG167C PUjwNhcWsD3DTetBJMa JH93VF96iBRas7P7rHC 4L2HvAESrqatqdxscoA I9HAZnWSDlnA41tNPvG BucBx1gz1O2m728UYGc UNWwxK31Jf5plYhdKUJ srSJVuQ2edclqi9muag ezUcNoCLJjXUw8MTx2C HHuyEmeLsUtYVO7IgF2 EYU9hXIjnF7ymGfduvo dsI6hHel+RkVNQUxFPC 33GI68zSOcv2Z9fKQ7G 0UwLMXucxmkznbyuOM9 VMRrRQDypS42fRZsCPf zLs0en9I3i239JQYqTP LdmH46Xk0prKaqCOZfi CZEpE6eriaxz4elizqh AfJcRBAdWSq4SPr4TMP joSqtNzLiDED9BwK5PK F5hOVhtB6jiDjavglom G9wOyc+YP2uzxxycjF2 YS74QD76H3BsZfqudZW ibGU+PHRhYmxlIHdpZH RoPScxMDAlJyBzdHlsZ Y6wUe9xWANrXAHmqKmx fFHxYgHgl8sjNIVwOOk iAH1dnZliV3GpcOS4YT Nyg1x4Xl40W86qG5Krd XA+AWAlyEI9iOA7uE1d CaEhDgY9CHlmM171LzC uyQUdFbpdl5qmo8qumM s1YjSoOTDoveDgpJnfZ HB7l0VtXy83Z21aGVfs ZHRoPSIyMCUiIHZhbGl mmm6eqI7eDm3+PGNvbC H8sDI3gX7qJiXkXcJ5J NbdH972MaKclMIvNhau N04vZ1QadXO+PHRyPjx 9ZNHosMvsRD5byFWgZP opMn3ePDP9HcLbYyLsW OrcH2OlTMHzxtmciwyk sJG4NVFnAPFqkM45Kc6 mvCqpCx7dUOKxGVR7MQ XwcWMhF4NdpS2wXzSdF BJgZOIiP3AviZAzYEei P569IZpyNsE3JTVaywJ kR0YyDMVkkAjoCpZ7q8 D4Zj5WzAtzxKKqKD6wK xEvTIi7R7SySqj0WGQp iDftGM3evOPyQZiaGf0 hiSdjyJnrGC9hLEJrwe doh039CwRhj7abSIVin OJxKVbwKJH4A97wj7C1 WYFqJVCbSNY9aBA2nL9 hbGlnbjogbGVmdDsgdm NkkCycSXiaQVthS393G FHjsZpmYnWXPgp3Y7Fq Tqk1AFBcjGdmVE3imPD aXFeeMd9haXpcuUjfRK 7uMIHqggxit724EkUru 0wyBXFgcDCkPJtuLSY5 F69jh7C4RFCgNASyKIZ 0lZB7iQ3waUzjvilayW VmdDsgdmVydGljYWwtY QgxA630CBDfeMmyQy6G Yez1C2PcQyo4EIPwgGy jXT3uhZHsJIhnBx0zmG hlpRjdSG7bBMKxzurki 403HbLsu5xmJYShnHWr OGglEBL8E53dq9V7UKM lGCKsBTO4dGS3xF4cqZ lnbjogbGVmdDsgdmVyd AkbONdjIMhnE327JAHx cDsnPlBheWVyOjwvdGQ +QL86ar09N2SoYexbTb o4AICgELB1vSZ9tV3cT VMhHBpgn3R1vKW2M2Rp cmR (more content not included)... Normal [facility] ALL CBC WITH AUTO DIFFon BASOPHILS ABSOLUTE AUTO 0 [facility] Basophils/100 WBC (Bld) 0.2 % 0.2 - 2.0 % [facility] Eosinophils/100 WBC (Bld) 0.4 % Low 0.9 - 7.0 % [facility] Erythrocyte distribution width (RBC) [Ratio] 12.7 % 11.0 - 15.0 % [facility] Hematocrit (Bld) [Volume fraction] 41.8 % 36.0 - 48.0 % [facility] Hemoglobin (Bld) [Mass/Vol] 13.8 g/dL 12.0 - 16.0 g/dL [facility] IMMATURE GRANULOCYTES ABS AUTO 0.[address] [facility] Immature granulocytes/100 WBC (Bld) 0.3 % 0.0 - 0.5 % [facility] Interpretation and review of laboratory results Abnormal [facility] LYMPHOCYTES ABSOLUTE AUTO 3.5 [facility] Lymphocytes/100 WBC (Bld) 22.2 % 20.5 - 60.0 % [facility] MCH (RBC) [Entitic mass] 28.8 pg 26.7 - 34.[address] [facility] MCHC (RBC) [Mass/Vol] 33 g/dL 29.9 - 35.2 g/dL [facility] MCV (RBC) [Entitic vol] 87.1 fL 81.0 - 99.[address] [facility] MONOCYTES ABSOLUTE AUTO 0.8 [facility] Monocytes/100 WBC (Bld) 5 % 1.7 - 12.0 % [facility] NEUTROPHILS ABSOLUTE AUTO 11.[address] [facility] Neutrophils/100 WBC (Bld) 71.9 % 43.0 - 75.0 % [facility] Platelet mean volume (Bld) [Entitic vol] 8 fL Low 9.5 - 13.[address] [facility] TBH EO # 0.1 [facility] TBH PLT 376 [facility] TBH RBC 4.8 [facility] TBH WBC 15.8 High [facility]IS[facility] Chlamydia/GC Amplification L Con 02-04-2025 Chlamydia trachomatis, GENARO LC Negative Invalid Interpretation Code Negative [facility] Comment on above: Performed By: #### [id number] ####[facility] (DEFAULT)[address] [place] [address] Neisseria gonorrhoeae, GENARO LC Negative Invalid Interpretation Code Negative [facility] Comment on above: Result Comment: Perf ormed At: =G [facility] [id number] Kanwal Corea MD Ph:[phone] Performed By: #### 1 [id number] ####[facility] (DEFAULT)[address] [place] [address] Coding Summaryon 02-04-2025 Coding Summary HTMLBase 64 CdctycqsDHr8lCy+PGh lYWQ+RA3DMDSjN68miU YdqK6kH6YWEEzMItzuW IQUGZxTLdUwkyMzIJ0q aXNjZXJu IC8+RD9lFGQhEkvejIJ dh9I4pTX3A10yma1zTV kshIE2MBDwFtWwrmjuf 2yphAp3UOdxKmitQuXc NRAhbZ96MWN3hX69Ji3 7nHSefHUxw3idbIt9St HnPRNcNTT1dZjeYHjuk 3JzXMRwD34ssUPdy1F2 IGNvbGxhcHNlOyBlbXB 5aP8rOBlcbutxg3pxuw kzRis9bh48iZNym9C3j XL2I2AdbuS0MRBhzPOg PkvieYCCuZ2tppbtn5a oiqiySbYrOABqFPz0GV m3KGRpxLszEtAfON10V KS6BUYfnfCfZ3GjHVRy hBlvYeM3z3Q1Ve2UA0H OPnsmQ1OMNVYOUNattG Q+MV87lj16P5ZiOfrfQ zx7YCMmUQK4wUW7wO6g AWPtLVgph2L9rVV0F8N ljvKjsu9ee0tdYWKsVR oeN49hxLLnw7O5NMGtl IS1JMNpzYkaHbOkiV66 Oyc+XJIvxAsko4TrAwx pc4gpx4leiSg9UajaSD RsndSzaPqfQYP8y2YcG c2cHFJkrGG9wCM6dO6w XiNnRpY5YQgsY310QcE qwNQuTmfdY38xL1WutI A+TUQqUov2JYTspGdmS N6pZ5AgHWJftwzmcBSm tXwvEC9hUDLoflcoIUA hfV4qKHXsK1k7AvTpEm S5ZXclZ7IrUUMinhflS l98rR1lFpYtYwZ3IPeo M5VzloC5UHDubPPeGHo uUKK1Z37sz2Y6MUQeXU FuAWT9nVU2fI6ytTgmz jogbGVmdDsgdmVydGlj STkaVYdsX537BXHsjNt nPkNvZGluZyBEYXRlOi AgMDMvMDYvMjAyNTwvd GQ+GZGnEVF1lQakVBKw vEJzADyaTm9vgQcsxCr eKV0rLIWntknrPWVkvM 6uDRRkvMLdvRfvKU3aE QIydnrxt828EpVkFOG4 YPPshSZyY8WzyU4sGdB vDPTzBHBgT2HweRDfMT suQ439YArhTuB5LYCbt xWpA7TlUXNowBuvKyF5 a0H0Jt7Jh8FrhxqiJ7T uyYYjMyFzLtxrKDp8O4 RkPjwvdHI+IE79HZNcM K83WBf5IIQ8yWxfKLyr OSLaV2YrwE0tHcErAZT kZGRkOyc+PHRhYmxlIH dpZHRoPScxMDAlJyBzd YrkNB9uJv7xTHLtORBm pMngoYIoAdGbx3fqPPG nIEefYB1jeZcyT4SwvB G1NYTwg4g3Fj41B81nV 3JvdXA+MNYywRR2cKG7 sU2qOkTqXwW3FNbsP25 4HiOchOIsTjqym7kxj9 zwnSg1VoF5WENeziZow OihQMM8m8MiJj43N05q IHdpZHRoPSIxNSUiIHZ ewWkccc0caN9kVv7+PG DhjIV5yVV4fC2qQlGgM lQ8VZxbL633JmKfaYRy Bcmws1ywt2oszLl4QbV hBRWeldKfwCvvATS6f7 XkUu24R8YynLrht2NnR vz9lg63hFCnc9K5lUB9 I7KjOYPzwigsaDBxgMd lDJ3oFBYhyuzlZBEuvB 1rGTBtV8v9BcKlAyH3L SqoE9QdwuX2MJUjnPRe KJKwfCWZeN1cylsrg2s ijwyvXxYgXYYuODh9DY r9IDMhiXwuLbTgYMV6U hS8PQG4xULnhP5pyKdc hxdvfP6vYnf+RNL3sYW vwSOCSM9nDoxjmHH+PH PeINB3uYdkEMyiFMGaa X0hPNHnY9i0TgLpOqQ3 JSmgZ5CugaL6TUHeqZG zGZCkaQXRyF5xqthhg8 wearglShFnKEVkEQn0O Hs3AHLghCesEgZlOIL7 OfQ2HGU7dWNpfR1sgTe xvoqmjP1uOyq+QmlydG ilCZF9YKj8P0FhTsw1Y YVgjRlgXG3ouGMnEBhv Tz2alFvhtWwtCH6gWJF pspdup181BbVqk6ggBW VqpIMpXOqtWHH4O10pm 4K5ELEfSJAiZLE3uNV3 fI9xtZzzqbyrzLAdnLz gdmVydGljYWwtYWxpZ2 20TFHxzJshEnJiVEy7M 7JfBel1KNBorQssAF7u rPYzEZnjGz7rwVjupQx cOU3eHQHkuaxpx530Zr Hxz1pbQNJcpXRtFXoiK UY3N02rv6Q1YJSmSLIv SKG7rEY0hL9piQqidws gbGVmdDsgdmVydGljYW ibKOqhC100VVGxmZubB jKuhIv3L2MmXuv7BOCh yIppNH3frCCoDGoyXj0 gqBuuaFmnTR2iIJFtqp zas515PoWkp4ypQXQuv FOhGQayWHK5P87rm0S3 EQFoCYFdVEW8nSP7jD6 hbGlnbjogbGVmdDsgdm HtfSrkWFxwIFtzE468M HRvcDsnPlBhdGllbnQg NGulMEo2L7PdDprxtAZ +LH89JHPpXN93gLLtvR Wrh5ftnDe1BjWrUSPeO VR2nQbiMCtkm2ElHTLq J40iqIYyr0G5XTWahQo fxEFvBnJilIS5yL7oUK hehmuyj4aqiqkfQxros 4atio28pI21J45kQPpm ZHRoPSIzMCUiIHZhbGl dgg8ceL6kEo4+PGNvbC B8dUW6eS1tCKKgZtA2U PbfE189BfQsePOxWdyl u0icp0wzuRb4WkB5TBV evsCnhAnlRJE1j6LdFc 90T46nBCejMMHkCKJrN QBxWUXusJidky1adZ7y Ii8+MVGcwXF7mAK2xW7 sMvLoFxF7PXqjA127Wd NirQKvDlfbL53pT5Pia XA+HEWoGxx7OTXuaNst FI1adSLqRKuoXk5rUAJ 8XgPfLtJhHPalE5NcGG NmiblbcskroRK5JXApG UDmmR72Qg9fvIdmLCAw uKHBjY3hudzxo4frztu bTeXwHNDsZMh4GTq8NQ HmuMnoWlCmXLS9PdZ6L EK9iKJycN8bhPqyjubo nX3tP8SfHWYhfqpeEu4 3iK8vJeWiJoA9PQrdTt c+D2eEGKIQLVMFGCuLJ 0MJVZVIFjdKBQcIAV22 MY32jWLst9N9fYR6Y8P eHMYwvwxwrunebPP6DD BePADbvI97iHEmDWelC g0jl3F3p236EIIhCAMj yK14Pl9mxLtiNMPmcGM XlB4xqdgyf8cyqdziOa IvTTHfEFg5HHs1XXPfr KmzCyHnFAE8RrV3IOI5 nIBhpR2ujAadytzanM1 wOyc+NJHwMNKxACk1Cv wvdGQ+CGRzUKD5kVccN NvuXBPpiG1yRMKsZ3c7 VwVrPuW3DDtrH4DmNXS jgaafTq79wJ6uThKuMv N9YYbcJ8GkdoP1ICAqm UTeTNffWPN6S10qi4K5 DAJzJRGvHQS5fXG3kI3 hbGlnbjogbGVmdDsgdm EfvQgzRMbmWRleL106B OAopYcuNpZ3IGtpKJOq NX75UE13iIDah0W4rMK 4K0HbZGTlecktyrvdyR M8VJBvBTVobH44rWJbR DehWc0xy8Q5h670LXVs JJTvkU39Kp2cfVdyHXO olTITrP6dejolv4lbzl olQwCkXARiVUi8ILm6V THctCquPiAeXGU5DxU2 ODK4yKHuhB7lrAengmh mbW2mFam+RkVNQUxFPC 82NQ13hKTwe6Q9eXX5L 9GaLLWfewtshckwvSP9 FQXgMLHoeX90gUGqUYw kNe8np4E5n591TRPkRS PglF75Ve9gaUmcMTIud AHZiZ9wyfbue1mnpvgd MqBtCHNpBMi0SKf0CIM jcInpRmGaXKV6FqL1NI I4fHBqlF0tsRdeozwro G9wOyc+JT2dhgybqeT8 ZZ94JL41R6EiRvgfdVF ibGU+PHRhYmxlIHdpZH RoPScxMDAlJyBzdHlsZ T8lLe8mASVvTLAwjVyy oYMaOfVpr9nwIWZeDSf mZZ1yjTmmG3AexXQ3YV Tbf9m4Bg80L33aZ2Hdt XA+BSAreYO5qOI8cW0p GdAhBiZ4HVmeZ598JmI lqBTqDscer1rro8uuaT m5FbXyCYBmxhJjoResW PD0y1MaEb25J12hLYnx ZHRoPSIyMCUiIHZhbGl hnr1bdA5dGx5+PGNvbC H0cJP1eH8tHeYiBnP5X XvzW506QeTxmFPrGukj Q00gS1VblAR+PHRyPjx 5LOUdvZpdAC5esWXvMF cpFd2qMZH1TvDrSdQmA RimE0MiDMAzpqzdqrjs hDM7LUUgSXOkcU34Yf7 ykJxbAd8fTTVnEZQ8XF ZjjKXtW6JdzP7uZnEvS NYuZYWxF3XiwVBzONlj T525YCirWjU0WZZtynQ aP1RuNCYkxWzhTyQ1c7 O2Zi0IsGwjbBVaWD0rB yWxBRg0V5ArAzw8GEEk xHlqSB1iwCOgFDlbGl6 lzPpmxWwlEC0uROZowo bgo219OjFpb1eaWDPgu TLbFGkuFVL0Y78vf3L0 FSLqOWLtXDC9zVY8cK0 hbGlnbjogbGVmdDsgdm AzlBffCPsjRMvdU914P GYwpPwlRxQNEql1K8Td Jiv8VHWvvHtkQY7bvXO tWTpxIk2drKmqyEegKA 1bQACynopvq790FpRji 0mqVYTgcYFnAVzaDVX2 B71tq2V7ZVEaTMApNZW 1hGZ2bP6qrSrunkzwdY VmdDsgdmVydGljYWwtY NzwC880GCYhmUfkFo5R Rbj6S9FqVuw6EKVisNk zBT6zgQQpHAikVz1znL uncVnxDO4kQYFngwexs 918PrIrw1jtTKFniBYx WMpxWNT6Q39zg8N5JKJ iAPWuCEN2pEK3pL2rcU lnbjogbGVmdDsgdmVyd LnjELfbSPznT942DGNu cDsnPlBheWVyOjwvdGQ +SW72ny37V7ZdUcgpGp i7SVKbQPC5jFR6aU0gP QVsGPzrh4J3aVI1S0Lh cmR (more content not included)... [facility] 02-04-2025 L Specimen: [id number] Received: 02/05/25 Status: ARNOLD Duggan Num: [id number] Spec Type: Surgical Subm Dr: Rik Ashley Tissues: A Endometrium - Curettings (ENDOMETRIAL CURRETTINGS) Procedures: HE/2, Gross/Micro L4 Age/ Patient Sex Location Account Attending Physician Amanda Jones 39/F LABELL [id number] Rik Ashley SPEC NUM: [id number] RECD: 02/05/25 STATUS: ARNOLD DUGGAN NUM: [id number] ARIANNA: 02/04/25-[address] [facility] [address]: Rik Ashley ENTERED: 02/05/[address] [facility] [address]: Sofia,Lab SPEC TYPE: Surgical DEPT: [facility] ORDERED: HE/2, Gross/Micro L4 ORDERED: HE/2, Gross/Micro L4 Pathological Diagnosis Endometrium, curettage: - Late secretory phase endometrium - No evidence of hyperplasia or malignancy identified. Clinical Information Fibroid, dysfunctional uterine bleeding, pelvic pain Gross Description Received in formalin labeled with the patients name, date of , and endometrial curettings is a Telfa pad with adherent torres-pink to red-brown, delicate tissue fragments, 2.5 x 1.5 x 0.3 cm in aggregate. The specimen is filtered and entirely submitted in a single cassette. (1, larry, [id number]) J Microscopic Description Microscopic examination is performed. CPT Codes 84137 Specimen: [id number] Received: 02/05/25 Status: ARNOLD Duggan Num: [id number] Spec Type: Surgical Subm Dr: Rik Ashley Tissues: A Endometrium - Curettings (ENDOMETRIAL CURRETTINGS) Procedures: Jose GIVENS/Danica L4 Patient: Amanda Jones [id number] (Continued) Signed (signatur e on file) Henok Walden MD 02/08/25 1134 [facility] Consent Formson 02-02-2025 Consent Forms [id number] 2#[id number] [facility] Progress Note - Nurseon Progress Note - Nurse Patient walks to room 10. Patient is alert and oriented X 4. Patient is here for pelvic pain and blood when she wipes. Pt. states she has been here previously and urinalysis was preformed. Pt. has been taking Azo for urinary symptoms and drinking cranberry juice. [Electronically Signed on: 02/02/2025 10:26 EST] __ Herevia, March RN [Verified on: 02/02/2025 10:26 EST] __ Herevia, March RN [facility] UA [id number] 02-02-2025 UA Amorph. 2+ [facility] Comment on above: Order Comment: Urina lysis Microscopic order added on by LIN TV Expert Rules system. Performed By: #### 5 [id number] ####[facility] (DEFAULT)[address] [place] [address] UA Bacteria Trace [facility] Comment on above: Order Comment: Urina lysis Microscopic order added on by [employer] Expert Rules system. Performed By: #### 5 [id number], [id number] ####[facility] (DEFAULT)[address] [place] [address] UA RBC 0-2 [facility] Comment on above: Order Comment: Urina lysis Microscopic order added on by [employer] Expert Rules system. Performed By: #### 5 [id number], [id number] ####[facility] (DEFAULT)[address] [place] [address] UA Squam Epi Few [facility] Comment on above: Order Comment: Urina lysis Microscopic order added on by [employer] Expert Rules system. Performed By: #### 5 [id number], [id number] ####[facility] (DEFAULT)[address] [place] [id number] UA WBC None Seen [facility] Comment on above: Order Comment: Urina lysis Microscopic order added on by [employer] Expert Rules system. Performed By: #### 5 [id number], [id number] ####[facility] (DEFAULT)[address] [place] [address] UA w Micro, if Ind Standardo n 02-02-2025 Breakpoint UA Normal [facility] Comment on above: Performed By: #### 5 [id number], ####[facility] (DEFAULT)[address] [place] [address] Color (U) Ta[place] Normal [facility] Comment on above: Result Comment: Test cannot be satisfactorily determined due to intensely colored urine. Parameters which will be affected are: GLU, LISS, URO, KET, BLO, PRO, NIT, HUNTER, SG, AND pH. Performed By: #### 5 [id number], ####[facility] (DEFAULT)[address] [place] [place] [address] Glucose (U) [Mass/Vol] 100 mg/dL Normal [facility] Comment on above: Performed By: #### 5 [id number], ####[facility] (DEFAULT)[address] [place] [address] Ketones Ql (U) Negative [facility] Comment on above: Performed By: #### 5 [id number], [id number] ####[facility] (DEFAULT)[address] [place] [id number] Micro? Indicated Invalid Interpretation Code [facility] Comment on above: Result Comment: Resu lt created by rule GL_MAGR_ADD_UA_MICRO Performed By: #### 5 [id number], ####[facility] (DEFAULT)[address] [place] [id number] UA Bilirubin SMALL Abnormal [facility] Comment on above: Performed By: #### 5 [id number], [id number] ####[facility] (DEFAULT)[address] [place] [address] UA Blood Negative Normal NEGATIVE [facility] Comment on above: Performed By: #### 5 [id number], [id number] ####[facility] (DEFAULT)[address] [place] [address] UA Clarity SL CLOUDY Abnormal CLEAR [facility] Comment on above: Performed By: #### 5 [id number], [id number] ####[facility] (DEFAULT)[address] [place] [id number] UA Leuk Est Negative Normal NEGATIVE [facility] Comment on above: Performed By: #### 5 [id number], [id number] ####[facility] (DEFAULT)[address] [place] [address] UA Nitrite Positive Abnormal NEGATIVE [facility] Comment on above: Performed By: #### 5 [id number], [id number] ####[facility] (DEFAULT)[address] [place] [address] UA pH 5.5 Normal 5-8 [facility] Comment on above: Performed By: #### 5 [id number], [id number] ####[facility] (DEFAULT)[address] [place] [address] UA Protein TRACE Abnormal NEGATIVE [facility] Comment on above: Performed By: #### 5 [id number], [id number] ####[facility] (DEFAULT)[address] [place] [address] UA Spec Grav >=1.030 Normal 1.001-1.035 [facility] Comment on above: Performed By: #### 5 [id number], [id number] ####[facility] (DEFAULT)[address] [place] [address] UA Urobilinogen 1.0 mg/dL Normal 0.2-1.0 [facility] Comment on above: Performed By: #### 5 [id number], [id number] ####[facility] (DEFAULT)[address] [place] [address] Urine Source Clean Catch Normal [facility] [facility] Comment on above: Performed By: #### 5 [id number], [id number] ####[facility] (DEFAULT)[address] [place] [address] Wet Mount.on 02-02-2025 Wet Mount. Negative Normal [facility] Comment on above: Performed By: #### 1 [id number] ####[facility] (DEFAULT)[address] [place] [place] [address] .Auto Diff 1on 02-01-2025 Auto Yolo % 6 % Normal 1-12 [facility] Comment on above: Performed By: #### 2 313757, [id number], [id number], [id number] #### [facility] (DEFAULT) [address] [place] [address] Baso Abs# 0.1 x10 Normal 0.0-0.2 [facility] Comment on above: Performed By: #### 2 199014, [id number], 8545634, [id number] #### [facility] (DEFAULT) [address] [place] [address] Basophils/100 WBC (Bld) 1.3 % Normal 0.2-2.0 [facility] Comment on above: Performed By: #### 2 293451, [id number], 5963571, [id number] #### [facility] (DEFAULT) [address] [place] [address] Eos Abs# 0.1 x10 Normal 0.0-0.4 [facility] Comment on above: Performed By: #### 2 898023, [id number], 1963249, [id number] #### [facility] (DEFAULT) [address] [place] [address] Eosinophils/100 WBC (Bld) 0.7 % Low 0.9-4.0 [facility] Comment on above: Performed By: #### 2 813788, [id number], 5194316, [id number] #### [facility] (DEFAULT) [address] [place] [address] Lymph Abs# 2.3 x10 Normal 1.3-2.9 [facility] Comment on above: Performed By: #### 2 295724, [id number], 2482531, [id number] #### [facility] (DEFAULT) [address] [place] [address] Lymphocytes/100 WBC (Bld) 27 % Normal 14-48 [facility] Comment on above: Performed By: #### 2 279843, [id number], 4899693, [id number] #### [facility] (DEFAULT) [address] [place] [address] Yolo Abs# 0.5 x10 Normal 0.0-0.8 [facility] Comment on above: Performed By: #### 2 666281, [id number], 0744147, [id number] #### [facility] (DEFAULT) [address] [place] [address] Neut Abs# 5.4 x10 Normal 1.5-9.2 [facility] Comment on above: Performed By: #### 2 259168, [id number], 1352330, 86906035 #### [facility] (DEFAULT) [address] [place] [address] Neutrophils/100 WBC (Bld) 65 % Normal 44-88 [facility] Comment on above: Performed By: #### 2 454539, [id number], 8932792, 61968498 #### [facility] (DEFAULT) [address] [place] [address] CBC w/ Auto Diffon Erythrocyte distribution width (RBC) [Ratio] 13.0 % Normal 11.5-15.0 [facility] Comment on above: Performed By: #### 2 645613, [id number], 7715282, [id number] #### [facility] (DEFAULT) [address] [place] [address] Hematocrit (Bld) [Volume fraction] 40.4 % Normal 33.7-40.4 [facility] Comment on above: Performed By: #### 2 415972, [id number], 4040262, [id number] #### [facility] (DEFAULT) [address] [place] [address] Hemoglobin (Bld) [Mass/Vol] 13.5 g/dL Normal 11.3-15.9 [facility] Comment on above: Performed By: #### 2 459428, [id number], 1893685, 97807060 #### [facility] (DEFAULT) [address] [place] [address] Man Diff? Auto Invalid Interpretation Code [facility] Comment on above: Performed By: #### 2 752104, [id number], 5146553, [id number] #### [facility] (DEFAULT) [address] [place] [address] MCH (RBC) [Entitic mass] 29 pg Normal 24-34 [facility] Comment on above: Performed By: #### 2 783774, [id number], 6551989, [id number] #### [facility] (DEFAULT) [address] [place] [address] MCHC (RBC) [Mass/Vol] 34 g/dL Normal 26-37 [facility] Comment on above: Performed By: #### 2 899424, [id number], 7311324, 49689899 #### [facility] (DEFAULT) [address] [place] [address] MCV (RBC) [Entitic vol] 86 fL Normal 81-100 [facility] Comment on above: Performed By: #### 2 647975, [id number], 2470021, 78712192 #### [facility] (DEFAULT) [address] [place] [address] Platelet 381 x10 Normal 138-427 [facility] Comment on above: Performed By: #### 2 882397, [id number], 0744867, [id number] #### [facility] (DEFAULT) [address] [place] [address] Platelet mean volume (Bld) [Entitic vol] 6.2 fL Low 6.3-10.2 [facility] Comment on above: Performed By: #### 2 217198, [id number], 7507948, 72253082 #### [facility] (DEFAULT) [address] [place] [address] RBC 4.70 x10 Normal 3.70-5.30 [facility] Comment on above: Performed By: #### 2 400135, [id number], 2253189, 20080541 #### [facility] (DEFAULT) [address] [place] [address] WBC 8.3 x10 Normal 3.5-10.5 [facility] Comment on above: Performed By: #### 2 359309, [id number], 8334578, 47740755 #### [facility] (DEFAULT) [address] [place] [address] CMP Standardon 02-01-2025 eGFR Non AA >60 Invalid Interpretation Code [facility] Comment on above: Performed By: #### 2 210559, [id number], 5650195, 62352046 #### [facility] (DEFAULT) [address] [place] [address] eGFR AA >60 Invalid Interpretation Code [facility] Comment on above: Performed By: #### 2 621479, [id number], 0147327, 06764076 #### [facility] (DEFAULT) [address] [place] [address] Albumin [Mass/Vol] 4.0 g/dL Normal 3.5-5.0 [facility] Comment on above: Performed By: #### 2 142038, [id number], 7371550, 75140652 #### [facility] (DEFAULT) [address] [place] [address] Albumin/Globulin [Mass ratio] 1.2 {ratio} Low 1.4-2.6 [facility] Comment on above: Performed By: #### 2 778840, [id number], 7903343, 92016965 #### [facility] (DEFAULT) [address] [place] [address] Alk Phos 30 IU/L Low 32-91 [facility] Comment on above: Performed By: #### 2 967442, [id number], 4337906, 91624853 #### [facility] (DEFAULT) [address] [place] [address] ALT [Catalytic activity/Vol] 23.0 U/L Normal 14.0-54.0 [facility] Comment on above: Performed By: #### 2 453576, [id number], 0798573, 56959723 #### [facility] (DEFAULT) [address] [place] [address] Anion gap [Moles/Vol] 14.1 mmol/L Normal 5.0-19.0 [facility] Comment on above: Performed By: #### 2 361628, [id number], 8896602, 87712804 #### [facility] (DEFAULT) [address] [place] [address] 77219 AST [Catalytic activity/Vol] 45 U/L High 15-41 [facility] Comment on above: Performed By: #### 2 278288, [id number], 7317945, 12226804 #### [facility] (DEFAULT) [address] [place] [address]853 Bili Total 0.5 mg/dL Normal 0.3-1.2 [facility] Comment on above: Performed By: #### 2 848635, [id number], 2230668, 11481195 #### [facility] (DEFAULT) [address] [place] [address]879 Calcium [Mass/Vol] 8.9 mg/dL Normal 8.9-10.3 [facility] Comment on above: Performed By: #### 2 092984, [id number], 9578081, 69149958 #### [facility] (DEFAULT) [address] [place] [address] 51784 Chloride [Moles/Vol] 106 mmol/L Normal 101-111 [facility] Comment on above: Performed By: #### 2 082550, [id number], 9673371, 91140829 #### [facility] (DEFAULT) [address] [place] [address] 21087 CO2 [Moles/Vol] 20 mmol/L Low 21-32 [facility] Comment on above: Performed By: #### 2 681411, [id number], 6933612, 10594805 #### [facility] (DEFAULT) [address] [place] [address] 87459 Creatinine [Mass/Vol] 0.87 mg/dL Normal 0.60-1.30 [facility] Comment on above: Performed By: #### 2 083440, [id number], 6498142, 38138446 #### [facility] (DEFAULT) [address] [place] [address] 04982 Globulin (S) [Mass/Vol] 3.1 g/dL Normal 1.5-4.3 [facility] Comment on above: Performed By: #### 2 525105, [id number], 2141765, 10369367 #### [facility] (DEFAULT) [address] [place] [address] 77213 Glucose [Mass/Vol] 94.0 mg/dL Normal 74.0-118.0 [facility] Comment on above: Performed By: #### 2 966253, [id number], 3124950, 82610409 #### [facility] (DEFAULT) [address] [place] [address] 06160 Osmolality 273 mOsm/L Invalid Interpretation Code [facility] Comment on above: Performed By: #### 2 195690, [id number], 3709210, [id number] #### [facility] (DEFAULT) [address] [place] [address] 76679 Potassium [Moles/Vol] 4.1 mmol/L Normal 3.6-5.1 [facility] Comment on above: Performed By: #### 2 045585, [id number], 1233315, 18236905 #### [facility] (DEFAULT) [address] [place] [address] 78203 Protein [Mass/Vol] 7.1 g/dL Normal 6.5-8.1 [facility] Comment on above: Performed By: #### 2 930556, [id number], 1961910, 72719497 #### [facility] (DEFAULT) [address] [place] [address] 25770 Sodium [Moles/Vol] 136.0 mmol/L Normal 136.0-144.0 [facility] Comment on above: Performed By: #### 2 975244, [id number], 0157662, 72716189 #### [facility] (DEFAULT) [address] [place] [address] 50282 Urea nitrogen [Mass/Vol] 16 mg/dL Normal 8-26 [facility] Comment on above: Performed By: #### 2 245701, [id number], 9170915, 30479360 #### [facility] (DEFAULT) [address] [place] [address] Urea nitrogen/Creatinine [Mass ratio] 18.3 mg/mg High 4.6-16.2 [facility] Comment on above: Performed By: #### 2 583013, [id number], 6268921, 62271597 #### [facility] (DEFAULT) [address] [place] [address] CT Abdomen/Pelvis w/ Contras ton 02-01-2025 CT Abdomen/Pelvis w/ Contrast EXAMINATION: CT Abdomen/Pelvis w/ Contrast HISTORY: suprapubic pain COMPARISON: No relevant comparison available. TECHNIQUE: CT images were created with IV contrast. Axial, Coronal, and Sagittal images. Dose reduction techniques were achieved by using automated exposure control and/or adjustment of mA and/or kV according to patient size and/or use of iterative reconstruction technique. FINDINGS: LUNG BASES: No visible pulmonary or pleural disease. LIVER: No enlargement, atrophy, abnormal density, or significant focal lesion. BILIARY: No visible dilatation or calcification. PANCREAS: The gallbladder is nonvisualized SPLEEN: No enlargement or focal lesion. ADRENALS: No mass or enlargement. KIDNEYS: Bilateral renal cortical hypodensities too small to characterize. No obstructive uropathy nonobstructive bowel gas pattern. Normal appendix. BOWEL/MESENTERY: No aortic aneurysm AORTA/VASCULAR: No aneurysm or dissection. RETROPERITONEUM: No mass or adenopathy. LYMPH NODES: No adenopathy. URINARY BLADDER: No visible focal wall thickening, lesion, or calculus. PELVIC ORGANS: Distended endometrial cavity, correlate with the menstrual cycle. Right adnexal collapsing cyst measuring 1.9 cm ABDOMINAL WALL: Laxity of the ventral fascia at the level of the umbilicus BONES: No bony lesion or fracture. OTHER: Negative. IMPRESSION: No acute intraperitoneal abnormality. Final Dictated by: Brandon Ochoa MD Dictated DT/TM: 02/01/25 1:46 Signed (Electronic Signature): Brandon Ochoa MD 02/01/25 1:56 pm Technologist: Heath JACKSON [facility] Magnesiumon 02-01-2025 Magnesium [Mass/Vol] 2.10 mg/dL Normal 1.80-2.50 [facility] Comment on above: Performed By: #### 2 798343, [id number], 6240739, 97804609 #### [facility] (DEFAULT) [address] [place] [address] 23280 Test Urine 1on U Preg Negative [facility] Comment on above: Performed By: #### 3 [id number] ####[facility] (DEFAULT)[address] [place] [address] 95356 U Preg Internal Control Pass [facility] Comment on above: Performed By: #### 3 [id number] ####[facility] (DEFAULT)[address] [place] [address] 70283 UA w Micro, if Ind Standardo n 01-31-2025 Breakpoint UA [facility] Comment on above: Performed By: #### 2 [id number] ####[facility] (DEFAULT)[address] [place] [address] 57563 Color (U) Yellow [facility] Comment on above: Performed By: #### 2 [id number] ####[facility] (DEFAULT)[address] [place] [address] 02737 Glucose (U) [Mass/Vol] Negative [facility] Comment on above: Performed By: #### 2 [id number] ####[facility] (DEFAULT)[address] [place] [address] 44687 Ketones Ql (U) Negative [facility] Comment on above: Performed By: #### 2 [id number] ####[facility] (DEFAULT)[address] [place] [address] 75248 Micro? Not Indicated [facility] Comment on above: Performed By: #### 2 [id number] ####[facility] (DEFAULT)[address] [place] [address] 34544 UA Bilirubin Negative [facility] Comment on above: Performed By: #### 2 [id number] ####[facility] (DEFAULT)[address] [place] [address] UA Blood Negative Normal NEGATIVE [facility] Comment on above: Performed By: #### 2 [id number] ####[facility] (DEFAULT)[address] [place] [address] UA Clarity CLEAR Normal CLEAR [facility] Comment on above: Performed By: #### 2 [id number] ####[facility] (DEFAULT)[address] [place] [address] UA Leuk Est Negative Normal NEGATIVE [facility] Comment on above: Performed By: #### 2 [id number] ####[facility] (DEFAULT)[address] [place] [address] UA Nitrite Negative Normal NEGATIVE [facility] Comment on above: Performed By: #### 2 [id number] ####[facility] (DEFAULT)[address] [place] [address] UA pH 6.5 Normal 5-8 [facility] Comment on above: Performed By: #### 2 [id number] ####[facility] (DEFAULT)[address] [place] [address] UA Protein Negative Normal NEGATIVE [facility] Comment on above: Performed By: #### 2 [id number] ####[facility] (DEFAULT)[address] [place] [address] UA Spec Grav 1.020 Normal 1.001-1.035 [facility] Comment on above: Performed By: #### 2 [id number] ####[facility] (DEFAULT)[address] [place] [address] UA Urobilinogen 0.2 mg/dL Normal 0.2-1.0 [facility] Comment on above: Performed By: #### 2 [id number] ####[facility] (DEFAULT)[address] [place] [address] Urine Source Clean Catch Normal [facility] Comment on above: Performed By: #### 2 [id number] ####[facility] (DEFAULT)[address] [place] [address] Laboratory - Microbiology an d Antimicrobial susceptibilityon 01-06-2025 SARS-CoV-2 (COVID-19) RNA GENARO+probe Ql (Unsp spec) Negative [facility] No Panel Informationon 01-06 FLU A Negative [facility] FLU B Negative [facility] Interpretation and review of laboratory results Normal [facility] Coding Summaryon 12-31-2024 Coding Summary HTMLBase 64 YkorosiqNWe5sGb+PGh lYWQ+EE8WEOFhY90qcF DstW9vZ8WPFYoQSibsC CDKJFcKJdHltnCxVC8g aXNjZXJu IC8+ZR5mLJJdXtodmRL uw9Y9nYZ5X96lis5fFQ kizKB6JXPeTgUpiqwvn 6ibaTv8PJljZhkwUaRo AASwnX14KRJ8oY05Bt1 2sFUmqGQjb6eqvUp4Xp CgJUSmQPU6nJzmDMeod 3PjWCYnN21xyPWcc6S4 IGNvbGxhcHNlOyBlbXB 8mJ2fWOiwaxjwb7omxj rqNbw0uk95rRBhm1V0b FS1Y1EblsG7IEFcjIRy RexzvIULeT8xltkxb2y jchhiKkXjLMDvVMl6NY b6KMJkxXpnGmYtLC32D DL7ZHEikwIyI2OqHECe vLumTiQ9j7B1Aw8MX2K RCgxdT1VPKRDALVqfwR Q+EZ13uw34I8GuVitsI lg3VKQcEEL1sCY0nZ3y VNGwYCswa8O7iZN3N5O aviHfvh0ml2qsSFOxHF slK49ylJLul6N4KLLyc CA8MCJjeHejPmPdsY19 Oyc+SHUecDddf3OsHhn sx6wtg0mwtWw6CacdUF JhqzVquAroAJR9a7WsR l7pQEKgrOB9bXF4mF5e ByZzJqK0NGgsG270EgU cnHRbYxypN99nI5NcuA A+AMChVwi6IDQuzWsmB B5rF9ExJZGhimbfpJNx iAdgEB0hAWQsrzvqVWF scP1rKSYuN6x8KwTxBd I7PKzgW6YaHTTodlxdY j28gR3bZxTdBwO3FXzc T2BkiyT9KLJntAJlGGs tTNI6M87ex8B9AGEdXL CvKSV4hAX0zR4rwAcyq jogbGVmdDsgdmVydGlj PWquEVlvY991AFCotCt nPkNvZGluZyBEYXRlOi AgMDEvMzAvMjAyNTwvd GQ+OYVdYTD5nIufAHIl aBYkEWcpMg1ucWsajIb fVG5oJVSnoukxNRVnmV 4lMDYmeKUfvJilGW8mC MRtpgaiw872TwMiWVC8 ASIcgDUdJ4EgwB0vDtW gBSRjQDEgW9ZzjPVfTJ xwX357NZpxDqI9KQRof kNsQ6OoLVYqhJwjGtE0 y3M0Ck7Zq7EmnjuoT2J ukKPcKcVjEhgoDLu3U6 RkPjwvdHI+RM55LIDrX E29IMk6QHD3mEjyUNtq BGCpN6IekL9pGqUdUWJ kZGRkOyc+PHRhYmxlIH dpZHRoPScxMDAlJyBzd XlgIB3vJt5pFUBsICBd hDakuIYdLsYgn7raAWI rINzsFM7gmHejI3NisM V5LHYgk5q2Lw00B15nV 3JvdXA+LVAgtRL0kFS4 gU7aBaOhItQ7JSzuC84 2BkQjyWZvFrjac5ylq6 zlqBu3XqN3UPAvokBcu PkgGDN8z9ZwGd48D08a IHdpZHRoPSIxNSUiIHZ pgCtces7xgY5tAh2+PG IrvLH3sGH4sB5mItTeJ sA9DLpiD821QiHpoEEb Nbbtj2dsd3dxnMx9BbP qKHYqtvMmqOnoOVW6c2 LnPp01P8LcbEdmc8GfC ew4mt87hSXek8W5sMR1 F1PtLAAircybhACcyUd dAG0vUASqfxaaESTsqV 9aBHBdP0i2SuZdMzU2U IbvQ6VnmbD8BDEdhRIi QLUtdLQScD1lzurop0f wzxheCvBsFUVgRXx5WQ b5IKFjtCqqDmVjMAK9B kY8GUG2lHSujR0stOzn fgzlhQ7dXyn+SJA0sGP svVFQOQ3cYpswqPE+PH BmXSC0hJazQFzmQDZcv K6lJBLuB7m0CgSgMqT7 VFbxM2AnenD9FRNvrHM nYBAuqXVLkW6vujrcd4 vimxolIpLpQICsVBq1R Sa9CGWgbWpjScGvMKQ8 BgS0JZV4lCIbgH0jhSi nptfiuJ5sFhz+QmlydG dcYHZ8QEs0P6ZtWfb3U KBbkQdlIO3stVKyOVkj Bo8ilQbtxIxqUN8kQRB nrwcxc767FnFpl7dtIG JscFBnNOxlOAQ3I18dk 1W2MXDrSXSkJHE9zMS3 yS3wpWquyuhosFLhzId gdmVydGljYWwtYWxpZ2 72VHLqsXtsYbKpPFc9W 0YrIbc6DDIeiEhpSG2e pVKjFYhxTz6tuNdwcKm dGT0rHYTeqblca106Du Gtz8hrPSRiiIQoZYmvG XH0E66sq6N5TADaXGPl LIN3jUE6bV2dnYzyscz gbGVmdDsgdmVydGljYW ujTAznC535DVPorHvqO hUwbZv0J4YcNgo5COJi pEsyAM4jgGVeHRmwUt6 zcLxqfOloUD9uHYVtom byp050KwGkk9ppUOZxf DGxYNutUHP4W74iu3C1 MUZwBXSqXOA9gED9rE3 hbGlnbjogbGVmdDsgdm CerPegHGtyUJyvX814C HRvcDsnPlBhdGllbnQg BEyfWGj0E6CsBnytqYY +FU59VTSpTU83pIGhqS Zia5fbnBp5MgWhCAFlC WN8sSwzDCqnz3RzXEJr R34fmQWje6L2ONAeiGa jrQSaGgOmdAD6lS8xMO detdvqf9hrnspmAwati 3fwkn84qW44P55jZDic ZHRoPSIzMCUiIHZhbGl xlc9doL5eKu1+PGNvbC C4iCO0uN0bWQQpEdL2V AadL672HeKmgTAiPael k8rrd1xemXz8RvZ6APT ggwTmgErrGMW1f5LrIb 25Q09cUAutXAKdAWJfP PGtHCUwhOuxjg7kkH2m Ii8+MGCxcRM3gHH7sY8 tXsHxLtS1RYvmB808Wm JunGHrZcqeF46qQ2Ejr XA+HUQwMep6WONwpSxs FS9kuIEsLSsoBk4fKFF 2KmXjZiYiRSrqR7SjMR KglkeiiiknuUT2ZTDlE YOotI26Xw7ytMjmSORo mNNJlS1jgzirv1icgob kQfLgXWCdGIy9NYs0OI QorDayXvCoWQD2RnI6Y ZI9iOCuxQ2bvUfjxycw cV8bL1TrMIMgwqdtQy4 5lB3iVfLfKsO2QJgdXs c+E4xMUIGMXVTKAZxNJ 4JXWFWWZypFFWdIRI07 MU93cXDlw8N6hEE6D1Q eNHQkcqdjtlhrjZB1XR OwMLZhrA77nTXjATnmT u2bd4W3o266IPWlQKYg dK22Ak0xgNkwLJWxwIA WuU1xhcemo5nredzpPp WxRJKnZMo6JSo0FOIik PqpWzEbTBU3YgJ6FDB7 oYPzkY9wuEdbwsuojC5 wOyc+MWVbKAGlDNx2Ne wvdGQ+DCRiOEY1vZuaV KhuKBQajB6gIVXeD4c8 FgJmPeS8YTbnG7LpPGS wmrxfWo14wE0uUaTuIi B5PPvhS0ZqkyA4VRKnk NZrFAdwJMZ0W35nc7Z3 APJtLJEjNEZ6uPG0gP1 hbGlnbjogbGVmdDsgdm DmiUquGXvjHNqdY609A WGbpFcvOvM3HPvlIBGf RD62RC80gBFxu6F2eWB 6B3QaYKFhyusitciurB H5UKRsLNHrwM54gZHwP QwtNq8ex6F4x409DKSc ALIavQ18To5nlVqiNVL hrPFHuA5cyravt8ofhd ibIlJbDEIwLWt9OMz7I AVaaHhaRxVvHTD0AdF9 ZDE9dRBlyF4bfVippjc cwR1pFdl+RkVNQUxFPC 40RL76uMVki6Y5yHE2M 4PwXXOrxoxgbcdgwIS2 TEZqGGThsE82jBTfIUe zGu7ad7L8d295LZRvQE LljU56Dx4jaEvvNCGhz NYCsW4jbzbah3lbzcaz IlCsQXZyNUb8HDw6VFJ yyQxyMhQjBEH4PkJ3US F5rGSloD2doTltvhdzi G9wOyc+X0T2O2ZoHxmb dHI+BR22QDWqQO38nER smXBwv0oqvPw8WsUhCE RkUEO2fWdaHGifz3TwW JLqW17yzXSbi9T1YCWa wKpurRKlMyRgqJY1lB3 cPRhmodcom5qidblxZk qpa6ygiu46bZ40X00fW HdpZHRoPSIzMCUiIHZh rDrkjr2luI3kKm0+PGN ftXD6dZP4mR9qAiEzKi T1JJlwC641JjFckLIgA pnqj3gkp6wtrDh0DzKg NDWymxYydFfqMKO4y8C lQt13E19uSSbjZVIpZY OdSAPrYYYydKozgo7yh G9wIi8+XB4kl9ygwd45 fI08sAN+XQMhYUT6bPd gNEthWHXmeL7fZAfkLd O0WIYsAzEoyA26lYBuH QyfYd3bxImniKmxRX6t SUScjgmwf743XvJhs0f oDJEqrTCnETlhBPD7M8 4oc3R5ZNRjGIEbRNU0n NW3mG5hvWylkpnrjTFh dDsgdmVydGljYWwtYWx mP165JSBbmDxcLcPixR LoQ5smujXDXG1mUhfbj GQ+BSGgJCE8nJzaUBmi FYElsR9jQXXeQ8f0CiW yExM2LHorW7AjnaR9PD IaaRGeYCFkvLIEbK2gp jduq5cihoxwZeVaAIOz SZj7LUr3XUOwxTkyDbE uFPX3NzH1HVE6zLDyxJ 3nhPrbefxfdV3bCut+R klOOjwvdGQ+PHRkIHN0 zIpjDBatVPNggP1hGQF pR0n4TuLyKiM0EZolR9 ZaftF3ONToyVFtFGZcz FMEcP9livxfj0krzewq FfKqQIGsJDj8URf3MJG xbSdzAdKfNIG3JjH2AZ R6rMSqhX2ewWesiesok G9wOyc+TVJOOjwvdGQ+ HFFdNFA7qPbmDKwfOCA liU6lSDQgB2v5ZhEaNn C1QWlyR4BpqpJ3BLUml ELqCYTaaDIXgA1gbysd x8ssvpjfOdPyOSByVPh 4SLu8YBCywJceYrScHW R3TlR8ACM3zZQhnY5fo MkhkcijfZ5tXsj+UGF5 JDE1ZL09VD28T9AnOlx vdGFibGU+PHRhYmxlIH dpZHRoPScxMDAlJyBzd McjWB3eNz3rTOTiHJDu bGx (more content not included)... [facility] ED Clinical Summaryon 2024 ED Clinical Summary [facility] [address] [place], [place] [id number] Clinical Summary PERSON INFORMATION Name: AMANDA JONES Age: 39 Years Sex: FEMALE : 1985 MRN: Acct#: Visit Reason: Medical screening exam; [facility] F/U - Arrival: 12/29/2024 13:54:05 Discharge: 12/29/2024 14:20:00 LOS: 000 00:26 Check In: 12/29/2024 13:54:05 Checkout: 12/29/2024 14:20:00 Address: [address] [place] [id number] PCP: Summer Bolden PROVIDER INFORMATION Provider Role Assigned Unassigned Yovani RN, Brooke Nurse 12/29/2024 13:55:35 Prateek Mckeon PA-C Provider 12/29/2024 13:56:53 VITALS INFORMATION Vital Sign Triage Latest Temperature Tympanic Temperature Temporal Artery Pulse Rate O2 Sat 100 % 100 % Respiratory Rate Blood Pressure /87 mmHg /87 mmHg MEDICAL INFORMATION Medications Given: Allergy Information: No known allergies PHYSICIAN DOCUMENTATION DISCHARGE INFORMATION: Discharge Disposition: Home Discharge Location: Home PATIENT EDUCATION INFORMATION Instructions: Follow-Up: With: Address: When: Prateek Mckeon PA-C [address] [place] [id number] , only if needed DIAGNOSIS: 1:Contusion of left index finger without damage to nail Patient Understands: Yes - Patient/family/care aide verbalizes understanding of instructions given Comment: [facility] ED Patient Summaryon 025 ED Patient Summary [facility] ? Urgent Care [address] [place] [id number] PATIENT DISCHARGE INSTRUCTIONS Patient Information Name: AMANDA JONES Age: 39 Years Date of : 1985 Reason For Visit: Medical screening exam; [facility] F/U - Arrival Time: 12/29/2024 13:54:05 Primary Care Physician: Summer Bolden Attending Physician: Prateek Mckeon PA-C Comment: Patient Education With: Address: When: Prateek Mckeon PA-C [address] [place] [id number] , only if needed Medication Information: The exam and treatment you received today in the [facility] Emergency Department were for an urgent problem and are not intended as complete care. It is important for you to follow up with a doctor, nurse practitioner, or physician?s behavioral assistant for ongoing care. If your symptoms become worse or you do not improve as expected and you are unable to reach your usual health care provider, you should return to the Emergency Department, we are available 24 hours a day. For those patients who have received Radiology results, the interpretation of your X-ray as given to you by our Emergency Department physician is only a preliminary report. The Radiologist will review your films and if there is a change in the diagnosis you will be notified by phone. Please make sure you have provided a working phone number so we can reach you if necessary. In the event that you had a lab culture while you were a patient in the Emergency Department, you will be notified by phone if there is a need to change your antibiotic. Please make sure you have provided a working phone number so we can reach you if necessary. [facility] Emergency Department has provided you with a complete list of medications post discharge. Please inform your manager life/provider of your visit and for further instruction on these medications. Any specific questions regarding your chronic medications and dosages should be discussed with your primary care physician(s) and/or pharmacist. Additional medications on your home medication list not specifically addressed. Please contact the ordering physician if you have questions about these medications. PARoxetine (PARoxetine 40 mg oral tablet) 1 tab(s) Oral (given by mouth) every day. Visit Information Visit Diagnosis: Diagnoses This Visit Contusion of left index finger without damage to nail (S60.022A) Medical screening exam ([id number]) If you received any narcotics, sedation, or any other medication that causes drowsiness for the next 24 hours, unless otherwise directed: ? Do not drive a car. ? Do not operate machinery such as power tools, lawn mowers, drills, sewing machines, or stoves ? Avoid alcoholic beverages and drugs for allergies, nerves, or sleep ? Do not make important personal or business decisions or sign any legal documents Reason for Visit: Medical screeing exam- follow up work related injury Allergies: Substance Reaction Symptoms Type Comments No known allergies Drug Vital Signs: Vitals and Measurements this Visit (last charted value for your 12/29/2024 visit) Vital Signs This Visit Temperature Oral: 36.4 DegC Peripheral Pulse Rate: 86 bpm Respiratory Rate: 18 br/min Systolic Blood Pressure: 135 mmHg Diastolic Blood Pressure: 87 mmHg SpO2: 100 % Oxygen Therapy: Room air Blood Pressure Method: Automatic Measurements This Visit Height/Length Measured: 170.18 cm Weight Measured: 88 kg Weight Dosin.000 kg Body Mass Index: 30.39 kg/m2 BSA Measured: 2.04 m2 Problems List: Problem Onset Comments Depression IBS (irritable bowel syndrome) Major Tests and Procedures: The following procedures and tests were performed during your ED visit. Laboratory Radiology Cardiology Viruses or Bacteria What?s got you sick? Antibiotics only treat bacterial infections. Viral illnesses cannot be treated with antibiotics. When an antibiotic is not prescribed, ask your healthcare professional for tips on how to relieve symptoms and feel better. Usual Cause Illness Viruses Bacteria Antibiotic Needed Cold/Runny Nose NO Bronchitis/Chest Cold (in otherwise healthy children and adults) NO Whooping Cough Yes Flu NO Strep Throat Yes Sore Throat (except strep) NO Fluid in the middle ear (otitis media with effusion) NO Urinary Tract Infection Yes Antibiotics Aren?t Always the Answer www.cdc.gov/getsmar t GET SMART Know When Antibiotics Work U.S. Department of Health and Human Services Centers for Disease Control and Prevention August 2014 [facility] PELVIS TRANSVAGINALon PELVIS TRANSVAGINAL TITLE OF EXAM: US PELVIS TRANSVAGINAL REASON FOR EXAM: Pelvic pain TECHNIQUE: Grayscale and color ultrasound evaluation of the pelvis. COMPARISON: Pelvic ultrasound 01/24/2023 FINDINGS: Measurements: Uterus: 7.6 x 5.8 x 5.2 cm Right ovary: 3.6 x 2.7 x 2.4 cm Endometrial thickness: 1.6 cm The uterus is anteverted. Exophytic heterogeneously hypoattenuating ovoid lesion arising from or abutting the uterus measures 4.8 x 4.6 x 3.3 cm. The endometrial stripe is upper limit of normal in thickness for secretory phase. The right ovary demonstrates present color vascular flow. No appreciable mass. The left ovary was not visualized, presumably due to overlying tissues/bowel gas. No appreciable free fluid in the pelvis. No concerning adnexal mass visualized. IMPRESSION: 1. Exophytic lesion arising from or abutting the uterus, 4.8 cm. This lesion was present on the comparison study of January 2023, though has increased in size since that time (previously measuring up to 3.5 cm). Probable leiomyoma, though follow-up pelvic ultrasound in 6 months is recommended. 2. Upper limit of normal endometrial thickness for secretory phase. Consider endometrial hyperplasia if at a different phase of the menstrual cycle. DICTATED ON: 12/18/2024 1:21 PM This report has been electronically signed and approved by the interpreting radiologist. Normal Not Available Coding Summaryon 12-15-2024 Coding Summary HTMLBase 64 HqyynqkbEJw3sCb+PGh lYWQ+TQ2PBYEyL50uwN KfkZ7dI8VZDWxDKouuG CBXEQtUMjHqhrXkWW5y aXNjZXJu IC8+JH9aAUVyQooylAG mz6L8eLY8A68yid5eNZ kdpPD6AZIwDpJghoyhp 6tkdXu5RZnrJguuUgPk QXJspP30QNP4zZ70Dg1 8fIBgzTQyr2bukXa9Bn UpELLkPFZ9gXadTVolr 7AyFWIhI57pzEQod7R5 IGNvbGxhcHNlOyBlbXB 5wC9sRNkmmqwnh0xapd nlPoe4by88uORgy7K4z UE1M8KbxeZ0ANFbhEIo XayvxJFNhO7ubgylm8b fktmtXvZoNETuZAr5KK j3FNEejZjiAjPzUN36I HW6MUGlifFpV7UoFEBm kWotIdY5n1X5Xz9JC4C WPqatF4ICOQCGMNusxK Q+AI93rl91L8FaIwnoR bw4HGFoSJC3jXC8qD9v YXPgZZwuv2B2jDO0S6I uorQllu0ye3nlVKUaUN scZ61eiBZuk4W8YGGea OC7NTKcjRdbBsLzpK46 Oyc+GTBshSpot2FbYqf qk0hzg3mydNw9JwcvKD MwetKbcRkcEYR9a9CiL s5dPOTuiJI2zPW3iY0t JrCfZsA8APfbU423PqW xeGZwLjpfY00uA0ThwW A+YVFlLzj5SAXdlApsZ K8xZ5HdBZGtbwhxvDUi eWsfKN6fSYVvvqyjGKR sqB1dLFApM1y9WmGxHp P3HCcdH7RkYGYmcbugD m57yU0wThOeFuF1DZnn X4VxloS0PFFvjBGzUBn aFMI6M02rc7X2UJDpMU GsTAA6pQZ4kC1awQzek jogbGVmdDsgdmVydGlj FYzpBCbvV415FLRnkJp nPkNvZGluZyBEYXRlOi AgMDEvMTQvMjAyNTwvd GQ+HUAzIEC8zBejGUIg zLNpHDrxHg7coThgcYa bZR0iNNIbgqmpEPJimL 2aVEYsqUTunMjxHL6fC HLimajil763VxYmRPR8 DYQbpOStU9HuvT3hYaS gLCVnPZMvP5AiiOVbQN dgN190ROruFtD2OFOve dEjP4GhWGLbzYhfNxN4 k9Z3Xa6Wc5GvgoghW8K drMCzHuJxEwigZWo1R2 RkPjwvdHI+SZ69TMJpO R39ETf0OIY5yBhcUIvr DCHbC9GclG1gMlFzDXU kZGRkOyc+PHRhYmxlIH dpZHRoPScxMDAlJyBzd QzqAB8hQs5tMQBvTUSg uPvteSOqAhLlt3isFDP wCBxwMR1mgFycZ9ZljO R8NWWjx2j6Tb83U87vO 3JvdXA+AYRmeZO1oVW7 cU9dDuLtDnJ9MIjoF32 4WqZytNUrOmwyl5zwu4 iemFx2KyX4AXIczdRbs JpfWRN1m7JnTm92W76r IHdpZHRoPSIxNSUiIHZ xwUvdae7bjW0qUl6+PG ByvOV0nNX4oU6hDxJtT rW0OOpeC783MpUueKMj Avtih3nkm4bbtKa2WhD uFOSxciLyrSweBYU5d0 LyGv57R6UbbZjqq6SfB iu6ba62uDFdg6W2zTM2 K4FxZPEikqkvdLIihEl oTO5yGCGxdyobFKIjwG 3hDPFkO9e8EbIuSaS6N OcuZ5QtgvT5QAOpkKJj NGCazESCoK1qfpynt1o cpvkxThTcDXHrKBv1HN c1HUCmiFlxCsTiQHH0W iD3BPK5aCYlyO0ahPnu baxfpI7tSob+GND5fPH jvOLQFQ2lFkrqfPF+PH UfFUC3cCviRNkkSGAqg J0tMOWpX6f7QxJqShR8 DKysB1NlwwW8BBIbdXJ rBOVlqJQVdM6nlukde4 nsrrgtTaIhYPNaNWe2L Uj7VNVhdKeeXdDlUUG4 FnM1JBI3qDQvdJ5xlSo dhgifbS5oFuj+QmlydG zeOPG7NMa3P0CqKbn3L XRlnFtzSW4wgLAgDVvp Im9qgOvlpNmlYM2xTFH txcqus987JeYmd4xqIR AnwHTwTTzuXHP8F98it 4U0KLWmKGOwEDI6uJX2 xY8ieGxpywmrkYJfnEg gdmVydGljYWwtYWxpZ2 68WRPpyEdxYmEgMHv5F 5StUso4GARkiCjtUF8p uWChCUgjXu4xcLtgeLy gQP5sVAHrfetdo146Xd Lhd3kuJGMsxWXzDBwsF VD0H17er7N2OXOqXCOg BNH0yDU3vK2clBkzfhg gbGVmdDsgdmVydGljYW pjQAsxW037RPTevIdjA kWxhZf6Z3YbVap9DPDg xDgrUE0nfGYdFGuuJx0 xePhzpHuuCP2vKMUyng ydz421YtEsz4ahXAWcp HIxGWxvTER4L96wf3C1 OKQlTOMgHIQ3bCK5aY8 hbGlnbjogbGVmdDsgdm DtfDfoWKqjHZovI752T HRvcDsnPlBhdGllbnQg PTwwGVw7D5DbSalvkHB +JT68KUThWK82eRElvU Cfe4dwdZh4GhIrHKCrT NM8nPxpTNwyw2NiRSJp T61pmWTbx9M8SOCsnIt oaYYlDmTfwJF7xD5jWW talavmd1nevazgYowzp 2kdyu66bF26C13mCOua ZHRoPSIzMCUiIHZhbGl jnr6waA8vKh4+PGNvbC X1kQW5zY7oYJPfZgR7B QhyT433YiCdiVMqNnpi b1brg5zfyJn3AhO2IDW lwxCvsFujHMY4v9SmOr 36N51wVDucLMBtZPPjV DMmGVSzcUxgtr0vxE3p Ii8+AUArwMK4dUL2sR0 gFiSjSxN0ZYqkJ889Wk UraOJpLppkS67wX4Vmo XA+DFIbQqp2TQJsbTwy OP2vrMFnMTrkAu5yFTT 3MoWcHhHsSXrpH8UtDO NprmooelgmmYS2PYKmP RLekT07Lt8nfHszWWPw vVNOnL9nxgsgh6zlpys sBxWaSBLrAYd8TBs4UI RgiVraOhXcLBZ2ZbS6V CG3hVMeoN2qpAlknfma gD1pO7MlXHDmibzrWj2 5oK2qPjOyNsL8IPwlKw c+L6rWRYPTEIVZCJkNQ 9UMTXHUTkwLCAlDPG29 IO72dOClj1I0aBK6X0U qFMRdtjebetncnEQ3KA HqBZOshF16tCWpHIztG u2an6F1r680UWSuREKp fK80Ru4oyRcgPPGnmMV YfP3icaoxv7zlixgnMj PfZJPxRGv1EZn9XIIjx LpbDpFlNOU3MgN4MMT5 aMYqyD4asIxdqitdxZ0 wOyc+XVNrXZRtKUt8Bt wvdGQ+ERUfADQ0nAkiV AfdUBQhdR7dKMThX6c1 FqAyWgW4QPzqP5OtJCM rtqvpAy45jT9dTcLhAs C6GAtoR9WixmW7BGKvw UNtTXwlTOI8A20ks3N0 ESIyFCPoTMD2xKK5gD8 hbGlnbjogbGVmdDsgdm VlcGaaQWqaYWfuU386T LIxrStaHiW7EKqlSELi LG78HN64yXJlt1C6qNC 4B2HjFUSiftlbtmamlP L2TPCjARUayR97aCBuP YkzQw0fv8A4f339HWCy VRSplT92Xc8wtKbzBDX itSWUzW0pinykh1xaxo hvAiUcJAIsJYb1WBb9V FFpmVsvUbPiIHO1FlL2 XDI1rNCstT4iiAtpppz jkD3uOfz+RkVNQUxFPC 81YO53wCWol7K9nUL0O 7LfCFJamxzqxhkshTR9 IEVhIMBxdS31cQKtGKf bCp7gf9Q7u801CLFcZD IrbU43Gf6iwUitKWXxp LUJhN9yzhrdj5cdpctw PqLiXERgQRd3LMx4XDJ lkTclTgOsAJY6WmA6NW G0tVZvvD5fiQyahwhva G9wOyc+R8G7N9UeMhik dHI+LZ83TZArWH75yJX vsUPge2xcbOe8PsZcPM JrBQF9uGofKZpsb8UhF XWeP89deDIyb7U2MNKf aAyemSRrJrGdlXL3kU2 dPSdzziiaz7jvbxkdLk bdr7obqd28qH57A39hT HdpZHRoPSIzMCUiIHZh jIgafm8lwX0uSn5+PGN vvAU2tET6nI8aAfJvDp Z9ZQlwY342BoBtxPBdJ dqul0qvs1xkuVq3JdPb KREvmwDncIrwQNG3y5Z mFx59F18eQWuxTZBaXJ FuDSJoFVBnuGdjmw5tt G9wIi8+FW9ya1utsp87 uQ79bSA+NUZsVLL4rIx fCJuvMSAhaP3kJFxeTy Z8BYFaZyJjqW57kIYzH NngOo8mlTvjlTgxEH4c OTZhkbuab362WpDci3n vEHXscHReFXbfPNN9H3 1nr3K6DIEoMPEwOLW8q DY0jN9smFuxbvrevTEb dDsgdmVydGljYWwtYWx kI996WLMuvVlbPcPbnP TsN5cknmNUGK7fQmdmv GQ+BNDkJTV2pIipBCwj BFAxaI0qPICaU1u5RdY bNjT8TXogS2NykoG9ON TaoZOlPGDizXERcI9gb auvq8bhsjetYfWbRUOi SHa6SQq6FXNldFzzNjQ qLDN8HgW4TWP5kJPyrZ 2naTduofjcfY7jKfj+R klOOjwvdGQ+PHRkIHN0 mVteQIcdEMLhjZ3uGYX uL4z8TlOtYgB6LKcrS7 DhbuD0YZZjeHEyHKAsl BUPpO9cmxtia6pfsoqt YfGjOWKlETy8DEd0APZ gbEpjYmOjDCQ2NaE3PA L2pZHeuC7myHowauggz G9wOyc+TVJOOjwvdGQ+ NRZzSDQ5gBkhZVrjJLN vqN4dPPMwQ3c7SvOfJs G1WIglJ8KmjlA1IUPxs WPgKLYuvMDSqN8caefq m8ubcbffCrYaMRQjEFt 7HDx9NWLpjPwmCfScPM C7XiU6JAN3tWVpyB9oi JmskpqufU0gAth+UGF5 OPD2KV61EW43C3FdFvn vdGFibGU+PHRhYmxlIH dpZHRoPScxMDAlJyBzd BzdAY0gWc2mGSYlUQLu bGx (more content not included)... Normal [facility] ED Clinical Summaryon 2024 ED Clinical Summary [facility] ? Urgent Care [address] [place], [place] [id number] Clinical Summary PERSON INFORMATION Name: AMANDA JONES Age: 39 Years Sex: FEMALE : 1985 MRN: Acct#: Visit Reason: UC - Finger/Thumb Injury; [facility] LT INDEX FINGER Arrival: 12/14/2024 15:18:30 Discharge: 12/14/2024 16:02:00 LOS: 000 00:44 Check In: 12/14/2024 15:18:30 Checkout: 12/14/2024 16:02:00 Address: [address] [place] [id number] PCP: Summer Bolden PROVIDER INFORMATION Provider Role Assigned Unassigned Felix Carrion CNP ED PA 12/14/2024 15:20:31 Leni Gonzáles MA ED Nurse 12/14/2024 15:27:04 VITALS INFORMATION Vital Sign Triage Latest Temperature Tympanic Temperature Temporal Artery Pulse Rate O2 Sat 100 % 100 % Respiratory Rate Blood Pressure /92 mmHg /92 mmHg MEDICAL INFORMATION Medications Given: Allergy Information: No known allergies PHYSICIAN DOCUMENTATION DISCHARGE INFORMATION: Discharge Disposition: Home Discharge Location: Home PATIENT EDUCATION INFORMATION Instructions: Contusion, Woqn-vc-[id number] Follow-Up: With: Address: When: Return to this practice [address] [place] [address] 12/28/2024 9:00 AM Comments: - Diagnosis today contusion of left index finger without damage to the nail. X-rays pending at this time. Will call with abnormalities -First report of injury and [employer] 14 filled out patient given copies -Return to clinic in 2 weeks for recheck. -Patient will be released to regular duty at this point without restrictions as she is doing well -Continue to ice elevate every 2 hours 20 minutes each -Motrin Tylenol as needed for pain -Range of motion exercises as discussed -Report any other concerns back to this clinic -Care plan discussed with patient in agreement verbalized understanding DIAGNOSIS: 1:Contusion of left index finger without damage to nail Patient Understands: Yes - Patient/family/care aide verbalizes understanding of instructions given Comment: Normal [facility] ED Patient Summaryon 025 ED Patient Summary [facility] ? Urgent Care [address] [place] [address] PATIENT DISCHARGE INSTRUCTIONS Patient Information Name: AMANDA JONES Age: 39 Years Date of : 1985 Reason For Visit: UC - Finger/Thumb Injury; [facility] LT INDEX FINGER Arrival Time: 12/14/2024 15:18:30 Primary Care Physician: Summer Bolden Attending Physician: Felix Carrion CNP Comment: Patient Education With: Address: When: Return to this practice [address] [place] [address] 12/28/2024 9:00 AM Comments: - Diagnosis today contusion of left index finger without damage to the nail. X-rays pending at this time. Will call with abnormalities -First report of injury and [employer] 14 filled out patient given copies -Return to clinic in 2 weeks for recheck. -Patient will be released to regular duty at this point without restrictions as she is doing well -Continue to ice elevate every 2 hours 20 minutes each -Motrin Tylenol as needed for pain -Range of motion exercises as discussed -Report any other concerns back to this clinic -Care plan discussed with patient in agreement verbalized understanding Contusion A contusion is a deep bruise. This is a result of an injury that causes bleeding under the skin. Symptoms of bruising include pain, swelling, and discolored skin. The skin may turn blue, purple, or yellow. Follow these instructions at home: Managing pain, stiffness, and swelling You may use RICE. This stands for: ? Resting. ? Icing. ? Compression, or putting pressure on the injured area. ? Elevating, or raising the injured area. To follow this method, do these actions: ? Rest the injured area. ? If told, put ice on the injured area. To do this: ? Put ice in a plastic bag. ? Place a towel between your skin and the bag. ? Leave the ice on for 20 minutes, 2?3 times per day. ? If your skin turns bright red, take off the ice right away to prevent skin damage. The risk of skin damage is higher if you cannot feel pain, heat, or cold. ? If told, apply compression on the injured area using an elastic bandage. Make sure the bandage is not too tight. If the area tingles or has a loss of feeling (numbness), remove it and put it back on as told by your doctor. ? If possible, elevate the injured area above the level of your heart while you are sitting or lying down. General instructions ? Take erxm-edi-mqlkemd and prescription medicines only as told by your doctor. ? Keep all follow-up visits. Your doctor may want to see how your contusion is healing with treatment. Contact a doctor if: ? Your symptoms do not get better after several days of treatment. ? Your symptoms get worse. ? You have trouble moving the injured area. Get help right away if: ? You have very bad pain. ? You have a loss of feeling (numbness) in a hand or foot. ? Your hand or foot turns pale or cold. This information is not intended to replace advice given to you by your health care provider. Make sure you discuss any questions you have with your health care provider. Document Revised: 05/06/2023 Document Reviewed: 05/06/2023 [employer] Patient Education ? 2023 [employer]. Medication Information: The exam and treatment you received today in the [facility] Emergency Department were for an urgent problem and are not intended as complete care. It is important for you to follow up with a doctor, nurse practitioner, or physician?s behavioral assistant for ongoing care. If your symptoms become worse or you do not improve as expected and you are unable to reach your usual health care provider, you should return to the Emergency Department, we are available 24 hours a day. For those patients who have received Radiology results, the interpretation of your X-ray as given to you by our Emergency Department physician is only a preliminary report. The Radiologist will review your films and if there is a change in the diagnosis you will be notified by phone. Please make sure you have provided a working phone number so we can reach you if necessary. In the event that you had a lab culture while you were a patient in the Emergency Department, you will be notified by phone if there is a need to change your antibiotic. Please make sure you have provided a working phone number so we can reach you if necessary. [facility] Emergency Department has provided you with a complete list of medications post discharge. Please inform your manager life/provider of your visit and for further instruction on these medications. Any specific questions regarding your chronic medications and dosages should be discussed with your primary care physician(s) and/or pharmacist. Additional medications on your home medication list not specifically addressed. Please contact the ordering physician if you have questions about these medications. PARoxetine (PARoxetine 40 mg oral (more content not included)... Normal [facility] Urgent Care [address] 025 Urgent Care Record [facility] ? Urgent Care [address] [place] [address] PATIENT DISCHARGE INSTRUCTIONS Patient Information Name: AMANDA JONES Age: 39 Years Date of : 1985 [facility]: [id number] Reason For Visit: UC - Finger/Thumb Injury; [facility] LT INDEX FINGER Arrival Time: 12/14/2024 15:18:30 Primary Care Physician: Summer Boledn Attending Physician: Felix Carrion CNP Comment: Visit Diagnosis: Diagnoses This Visit Contusion of left index finger without damage to nail (S60.022A) UC - Finger/Thumb Injury ([id number]) If you received any narcotics, sedation, or any other medication that causes drowsiness for the next 24 hours, unless otherwise directed: ? Do not drive a car. ? Do not operate machinery such as power tools, lawn mowers, drills, sewing machines, or stoves ? Avoid alcoholic beverages and drugs for allergies, nerves, or sleep ? Do not make important personal or business decisions or sign any legal documents With: Address: When: Return to this practice [address] [place] [address] 12/28/2024 9:00 AM Comments: - Diagnosis today contusion of left index finger without damage to the nail. X-rays pending at this time. Will call with abnormalities -First report of injury and [employer] 14 filled out patient given copies -Return to clinic in 2 weeks for recheck. -Patient will be released to regular duty at this point without restrictions as she is doing well -Continue to ice elevate every 2 hours 20 minutes each -Motrin Tylenol as needed for pain -Range of motion exercises as discussed -Report any other concerns back to this clinic -Care plan discussed with patient in agreement verbalized understanding Medication Information: The exam and treatment you received today in the [facility] Urgent Care were for an urgent problem and are not intended as complete care. It is important for you to follow up with a doctor, nurse practitioner, or physician?s behavioral assistant for ongoing care. If your symptoms become worse or you do not improve as expected and you are unable to reach your usual health care provider, you should return to the Emergency Department, we are available 24 hours a day. For those patients who have received Radiology results, the interpretation of your X-ray as given to you by our Urgent Care physician is only a preliminary report. The Radiologist will review your films and if there is a change in the diagnosis you will be notified by phone. Please make sure you have provided a working phone number so we can reach you if necessary. In the event that you had a lab culture while you were a patient in the Urgent Care, you will be notified by phone if there is a need to change your antibiotic. Please make sure you have provided a working phone number so we can reach you if necessary. [facility] Urgent Care has provided you with a complete list of medications post discharge. Please inform your manager life/provider of your visit and for further instruction on these medications. Any specific questions regarding your chronic medications and dosages should be discussed with your primary care physician(s) and/or pharmacist. Additional medications on your home medication list not specifically addressed. Please contact the ordering physician if you have questions about these medications. PARoxetine (PARoxetine 40 mg oral tablet) 1 tab(s) Oral (given by mouth) every day. Visit Information Allergies: Substance Reaction Symptoms Type Comments No known allergies Drug Vital Signs: Vitals and Measurements this Visit (last charted value for your 12/14/2024 visit) Vital Signs This Visit Temperature Oral: 36.7 DegC Peripheral Pulse Rate: 82 bpm Respiratory Rate: 16 br/min Systolic Blood Pressure: 132 mmHg Diastolic Blood Pressure: 92 mmHg SpO2: 100 % Oxygen Therapy: Room air Blood Pressure Method: Automatic Measurements This Visit Height/Length Measured: 170.18 cm Weight Measured: 88.00 kg Weight Dosin.000 kg Body Mass Index: 30.39 kg/m2 BSA Measured: 2.04 m2 Problems List: Problem Onset Comments Depression IBS (irritable bowel syndrome) Patient Education Contusion A contusion is a deep bruise. This is a result of an injury that causes bleeding under the skin. Symptoms of bruising include pain, swelling, and discolored skin. The skin may turn blue, purple, or yellow. Follow these instructions at home: Managing pain, stiffness, and swelling You may use RICE. This stands for: ? Resting. ? Icing. ? Compression, or putting pressure on the injured area. ? Elevating, or raising the injured area. To follow this method, do these actions: ? Rest the injured area. ? If told, put ice on the injured area. To do this: ? Put ice in a plastic bag. ? Place a towel between your skin and the bag. ? Leave the ice on for 20 minutes, (more content not included)... [facility] XR Finger Lefton 12-14-2024 XR Finger Left EXAM: XR Finger Left HISTORY: 6 days ago at work shut her hand and a door. Since then pain from the MCP joint to the DIP joint along with mild swelling and bruising. Rule out acute process. Thank you COMPARISON: None. TECHNIQUE: 3 views of the left index finger are performed. FINDINGS: There is no acute fracture. The bony structures are intact. There is mild soft tissue swelling along the proximal aspect of the index finger. IMPRESSION: Mild soft tissue swelling. No acute bony abnormality. Final Dictated by: Bear Silva DO Dictated DT/TM: 12/14/24 4:33 Signed (Electronic Signature): Bear Silva DO 12/14/24 4:48 pm Technologist: CATHY [facility] Coding Summaryon 10-07-2024 Coding Summary [employer] 64 PtvuklzdJGy1kBp+PGh lYWQ+TY9DCEThF97cxR QsfQ5pA2EWXYzHBziyJ RACYGwQAwUvapCgQA8r aXNjZXJu IC8+HD0eZTLgRskysVD ya3O9hRB8P15fij6wCR ypyUY9NYXeZkQzjjvzp 7vnjYd7TFprGxnxOoIy OOMdsX44WOC8mB77Da9 5lBMzlGOin4doiCv1Tq ZqTYUgAZN3rDikCOuvp 7MbQHCoX78qlDSyc1B3 IGNvbGxhcHNlOyBlbXB 6mQ8xXNqbcoqqx8fimw xzMpc6ae29tKMiw7B4i QH9E6KvebO0MVMfjYJf KgakyOSHlV9qscuqf7o pnzclYnCdLTCpALq8ZZ d6ZRCwaPzkCaZfSO10V IH8ZFHguwJlN1DpGCSg cFaoLxG7s0D7So1GQ6V TMuryG0GVBILNOHsmzM Q+HA86cu89A0GjWypmI oh6ELUzJRR3sPC2yG4q GRXoZNdbg6W3mET0H3V swlFqff6uy4enWAHeRP edT90gxNUut4Z4VHFgc MP7FRKpjGgwFeXanD72 Oyc+AISetAjkw0HfWph px2jwa4zubHh6UpqfYH SyjuQkoKgzONV1i5FwI x8pUVQxhLZ5kEL0dD9t WtDiIyK7QAawN567BaV kzQCyUnzlA30gA1QdnS A+FOCjQnp6ESNtyCgbZ A2eY9VlAWHbjdmhfJAa bAzwFQ7aFKHvfthcKGB reE4tOXQsG3l0IvJnVz K3AWmuJ2XmREYbecdrN w00nL2qNiUqQsF8KQfc O4BfvzU0DZYkiUHqDPj gMRV6T02ic5X5JLHpCK ErDZD5hAB2pV4abFhdu jogbGVmdDsgdmVydGlj NKlaUUysD506TKBydGr nPkNvZGluZyBEYXRlOi AgMTEvMDYvMjAyNDwvd GQ+XSYkANI8wVxoFKFp fIZtQRzeTf8pwNpcmCr uWH5nLIZzbfuvYVOfiX 1xCOHazQWblFzqBR9pW NAiexpqd435SkCpEBR4 PXVrgGCpT5CybL3eEsW eSGXaWANyR9TthODmFG duY760WJffFlS3VIIwi mFyA7HeFTVtiZxnGkR4 k7Q4Tp4It7IbdtopS2X ocUZzDrOkLbnoQOe4T3 RkPjwvdHI+PA32WIBvG N04YEm8WVG7iTjeUSsm UANsN1YreZ2aNgOqNDC kZGRkOyc+PHRhYmxlIH dpZHRoPScxMDAlJyBzd FbjGM6zAb7iSPEsWKDf dLsunSPrAbZme7tyQAH cSPpmJW9ftBnsP8PuhZ S2RCPrv1m5Dl99V17eJ 3JvdXA+OEJvxWW7uEI0 aK0cRvTrPbG4SKojM18 5HvGymTKpMvbxa3mfl3 tosIj5YhA8LFGbamLme KnmAII2y7LjNt16U14o IHdpZHRoPSIxNSUiIHZ usBdbxm2zcD2tZo9+PG HwpNO9yUJ0iQ8kDvPvO fQ5FKrqM185DsEmeBPn Kvyyy1csn9oilRz0HgY xUWMcvpFtyVsiCZW3e0 HsQk28G3OlmRhyy0ZaF ar0mg80nZKwe0M2yGT7 C6DbLQOxglsdwXUrnTo rCD3aFDUasypcFOAonB 2iDRPiK3m5WnIlQqI1Z JwqD9MgqmD6AKUflRSq HVBjjECSqZ2poqrju0a llygpPtDeDKYcZXs7DI b7UKNnnNxgDaUeGDS3M qK3HMZ0gQErxM7obSkb lrldmF2jHcb+WVK0fLD vpGCAAP2zUbvxsIG+PH ZtNDH8yMkmBKnyAAXnu O5dTXYiB7z0UvJhHnY7 KIyiU5HmyxK4JKIrhJH gBEOccVTKjR2lissvi9 aowpgkUwSoGGNtZBw2E Sp0BNHzqAcsNfSmGSF6 OrD4OVH4tKLfkK9ftSz adjtpyH7aBky+QmlydG cfSYZ0EJb1H6DjJpx4N MTxbXdfSM2keUPfZKkh Ef3dmVfkkUemSV5xPCA twjomu553WlNsa5huAI FszIDzKLzkZQU9W42zn 4E9FEJvIFXgRLI6eXT0 gQ9wqVjmvxdufMFxeAj gdmVydGljYWwtYWxpZ2 37CTBvlIofOkWkETr7Z 4PmKaj5PGMvqPjlWG3j qGTxQOdxPe2gdHanoBl xDC4rECNmgfjkt553Yz Vef5ifWOVajZTvEGonB IM8K12km9Q4LNMdYHPd COE1bWM1xP6voAtnxla gbGVmdDsgdmVydGljYW coXPgzM118VHLowGmpB lLwnTl7A4TaQzr5HZZz fKizDT9buKRgCUskLp3 gdAradGbpMI5dHWGpxy fdd573SwFms2jyUIYuo QFjGZxkSJA9N42ui8A0 HHWdPBQtBHW4mAM9yX9 hbGlnbjogbGVmdDsgdm UhkUwtAUepPQxgB665T HRvcDsnPlBhdGllbnQg SMyeEXa6O2UrQebspHS +HA47RKDbBK62kAXfhW Sqn7zxrNu0JvYtHDOeW SC7rVohVDnla2IhEOXy K09fxCLpb3S2YHZjuRy nhJRpXpIayQC7jV1rTK eayjseu5dhxdycVswon 5ifbb99nP05U20hEAeq ZHRoPSIzMCUiIHZhbGl bpb2fsC1hFj6+PGNvbC B3aXW0pZ4mKAUiUhP8V EukB227CvIhyWApVspp b7wkn8aygCa2BhB7WPR umaBmzBfqRSK5o1SaAp 63P66bFKunURQxZFIoV FScFLQseIatba7bhX1e Ii8+ZPJyfSV1lEA9bZ5 cFsRwOnR9AAlzF876Fj NwqDKxCzpjW96nJ7Kfh XA+BJMkVvi9QAYpkLyw KL5vyJFdXNupAq0xJWF 4CkZzUzNuPLujK1FbBU MblsbrpwnyyAC7XWLdW CNwdB29Uj6ncIquZBIh iMWSxI9ngxnto1jjpap yXyFtPBHqNQk8XAp9VZ LeaVyqOwLcJBU6XxX9V HV3nQJjrZ3ngRfobpbs yI6yH0BsWVDwzmwxAg2 3iJ8cKiNvOaG4BTrzIu c+X1dZYKUXQYPTGHjYJ 7TCWKMQLvmAMCmMKK16 YR76qAPqx9F2aHG2R7W dLXGyzuxscpoqeGM1GL BnTODroI41uGPgRWehI o9gp3O0a970ETQhDLDg oP74Fm1aoZbqCXGdkTM HgQ5wfofyi1rsylntId DaJKLpLMg5LAo9IWAul JeoXdRgVPH9JpK0EGV0 kOQnyP9whRcimlbzaJ3 wOyc+GTWnKIAlNHk7Vx wvdGQ+FXSgXGZ9dMbbE WhiAJJrxE5uMCRsF0p3 LbSsEjB3MCeiJ5NjIOY owajvDo59fF8bRgRhUb Q9EZrfL1NgdaD7HSJit KTsWQqsWNA4W99jz9K2 LOSeNRSuFGP9gOH2uV0 hbGlnbjogbGVmdDsgdm KlyLljCSrbMZbxD132M FInaYevGiW3FTtbRFYa HL92NK87nIVqe9G4jZN 0G3NkWCTqjognxxhonN R1PMWjEGBnaT69nRIwZ DesDh8jj5T9m619DNAl PMVtrF21If9eeIhoIEG qbEAZxB9bebjjq4cuyn vjEiFzCLBuFPl0ISo6X HLmbErjViBlCUI2FcY4 PWM6gLDriS3gxTpunul lpS3yTtg+RkVNQUxFPC 84VE41sHHga0I9wLG4U 2LeDMDhulntwcejdNH2 WJEaRSKeiI01hVZiEYe tMe1wv4A6m830BDXsMM OqcX43Lt3vpOdbWRQje GTIhJ7zzxury5cosnoc WgFaRWVuVGb9WWb1JMR lpFpqEbSnJVZ0HvY8RZ G7oOLpmK8wlGsdqhqdm G9wOyc+J8S5P5YkJdsh dHI+DZ23ALYvEV45xLE paPWch9zvkCk7ImOdCB UjPXD5oIrcTFkbd2RoJ VQhA45yqELpt2E4GMAa mJbecQByOhJkaEV0nN8 eHZbpmdzna3tmltwlLg hfq5bdug38jB65U56dB HdpZHRoPSIzMCUiIHZh gLlefj1fbZ6pRv9+PGN ieVO0fJZ2rI5gRtQvNq R2IDbxO055KoEvtGVnE qztu2nnq4dpuTd1GfTi AYQxecAftZzzAQZ2w7L wHk75V34xDEmmXOIvTN DgVYUiYSWynAajyu8xp G9wIi8+WQ4he8vetu05 nU56xNT+REHlUKO8yTa lFEpkWOImtT4jKZtaDu K5TVPsOzKcdX82qBHgC GzgRf6xeBuaaPsxZU0t ETZombpnb436PtMgb4h iDMOpaBVmODbtJSK6D1 2ko9H6KKYhQNTrEZU3x AA1bX6bhWdbkebmuRQi dDsgdmVydGljYWwtYWx tW682QXKsrQbrSaQnmC WyM0wtchBHZF5xVngkr GQ+VGKyOQI8gVgiFPwa MHPdgQ0iHZZtG1g9HfF xGwK3ZDnqS4UrdoH0NO QtrJSkTFEmdHWOhL7hh jtvn0beeyoeEhVaHJCs WXy0GZx0TSZneUuhKuI dTOH5UqC5MJL7uKSwvL 8ctEknbdtdaN4jHaz+R klOOjwvdGQ+PHRkIHN0 kHnlHMgdPPFzqY6gRGN dL8x6GrAqPaO8FApbV5 MhzwW7SJEfxGWnTTXca MQOjP2fiabxa7muknce ZyJeDSWkHLt2TDt4MMB baXkpPkQrYJX5ZrW9BU Q9hIKdtN3kyWqrereac G9wOyc+TVJOOjwvdGQ+ YENkFZE6wRxkDIxcGQA zeD8hQFRiG8u6BzNvOe Z8KJnjG6JsywF6TESbf VAaQHBdzGURsP5vxofs k3fjadkvKmUoXPHwJOx 9GHp5VIFjuGiaRgRdLC Q2RgQ4DYG1iCCbrV5hk TxomdhzgZ4uSpw+UGF5 ITJ3OZ31DE28W7XlSei vdGFibGU+PHRhYmxlIH dpZHRoPScxMDAlJyBzd XscPS6aYd1gTUYnAKWu bGx (more content not included)... Normal [facility] ED Clinical Summaryon 2023 ED Clinical Summary [facility] ? Urgent Care [address] [place], [place] [id number] Clinical Summary PERSON INFORMATION Name: AMANDA JONES Age: 39 Years Sex: FEMALE : 1985 MRN: Acct#: Visit Reason: UC - Shoulder Pain or Swelling; NECK/LEFT SHOULDER PAIN Arrival: 09/24/2024 13:35:53 Discharge: 09/24/2024 14:44:00 LOS: 000 01:09 Check In: 09/24/2024 13:35:53 Checkout: 09/24/2024 14:44:00 Address: [address] [place] [address] PCP: Yuan , Summer F PROVIDER INFORMATION Provider Role Assigned Unassigned Cadigan RN, Brooke ED Nurse 09/24/2024 13:40:09 CRISTIAN CASTILLO ED PA 09/24/2024 13:40:53 09/24/2024 13:51:39 Prateek Mckeon PA-C ED PA 09/24/2024 13:47:50 VITALS INFORMATION Vital Sign Triage Latest Temperature Tympanic Temperature Temporal Artery Pulse Rate O2 Sat 100 % 100 % Respiratory Rate Blood Pressure /73 mmHg /73 mmHg MEDICAL INFORMATION Medications Given: Allergy Information: No known allergies PHYSICIAN DOCUMENTATION DISCHARGE INFORMATION: Discharge Disposition: Home Discharge Location: Home PATIENT EDUCATION INFORMATION Instructions: Shoulder Sprain; Cervical Sprain, Nsnp-rb-Dgmy Follow-Up: With: Address: When: Summer Franks [place], [place] [id number] Business (1) Within 3 to 5 days DIAGNOSIS: Cervical strain; Shoulder strain; Torticollis Patient Understands: Yes - Patient/family/care aide verbalizes understanding of instructions given Comment: Normal [facility] ED Patient Summaryon 024 ED Patient Summary [facility] ? Urgent Care [address] [place] [id number] PATIENT DISCHARGE INSTRUCTIONS Patient Information Name: AMANDA JONES Age: 39 Years Date of : 1985 Reason For Visit: UC - Shoulder Pain or Swelling; NECK/LEFT SHOULDER PAIN Arrival Time: 09/24/2024 13:35:53 Primary Care Physician: Summer Bolden Attending Physician: Prateek Mckeon PA-C Comment: Patient Education With: Address: When: Summer Franks [place], [place] [phone] Business (1) Within 3 to 5 days Shoulder Sprain A shoulder sprain is a partial or complete tear in one of the tough, fiber-like tissues (ligaments) in the shoulder. The ligaments in the shoulder help to hold the shoulder in place. What are the causes? This condition may be caused by: ? A fall. ? A hit to the shoulder. ? A twist of the arm. What increases the risk? You are more likely to develop this condition if you: ? Play sports. ? Have problems with balance or coordination. What are the signs or symptoms? Symptoms of this condition include: ? Pain when moving the shoulder. ? Limited ability to move the shoulder. ? Swelling and tenderness on top of the shoulder. ? Warmth in the shoulder. ? A change in the shape of the shoulder. ? Redness or bruising on the shoulder. How is this diagnosed? This condition is diagnosed with: ? A physical exam. During the exam, you may be asked to do simple exercises with your shoulder. ? Imaging tests such as X-rays, MRI, or a CT scan. These tests can show how severe the sprain is. How is this treated? This condition may be treated with: ? Rest. ? Pain medicine. ? Ice. ? A sling or brace. This is used to keep the arm still while the shoulder is healing. ? Physical therapy or rehabilitation exercises. These help to improve the range of motion and strength of the shoulder. ? Surgery (rare). Surgery may be needed if the sprain caused a joint to become unstable. Surgery may also be needed to reduce pain. Some people may develop ongoing shoulder pain or lose some range of motion in the shoulder. However, most people do not develop long-term problems. Follow these instructions at home: If you have a removable sling or brace: ? Wear the sling or brace as told by your health care provider. Remove it only as told by your provider. ? Check the skin around the sling or brace every day. Tell your provider about any concerns. ? Loosen the sling or brace if your fingers tingle, become numb, or turn cold and blue. ? Keep the sling or brace clean. ? If the sling or brace is not waterproof: ? Do not let it get wet. ? Remove the sling or brace before taking a bath or shower, as told by your provider. Activity ? Rest your shoulder. ? Move your arm only as much as told by your provider, but move your hand and fingers often to prevent stiffness and swelling. ? Return to your normal activities as told by your provider. Ask your provider what activities are safe for you. ? Ask your provider when it is safe for you to drive if you have a sling or brace on your shoulder. ? If you were shown how to do any exercises, do them as told by your provider. General instructions ? If told, put ice on the affected area. ? If you have a removable sling or brace, remove it as told by your provider. ? Put ice in a plastic bag. ? Place a towel between your skin and the bag. ? Leave the ice on for 20 minutes, 2?3 times a day. ? If your skin turns bright red, remove the ice right away to prevent skin damage. The risk of damage is higher if you cannot feel pain, heat, or cold. ? Take bndb-zwc-uzwtqpo and prescription medicines only as told by your provider. ? Do not use any products that contain nicotine or tobacco. These products include cigarettes, chewing tobacco, and vaping devices, such as e-cigarettes. These can delay healing. If you need help quitting, ask your provider. ? Keep all follow-up visits. Your provider will monitor your injury and activity level. Contact a health care provider if: ? Your pain gets worse. ? Your pain is not relieved with medicines. ? You have increased redness or swelling. ? You have a fever. Get help right away if: ? You cannot move your arm or shoulder. ? You develop severe numbness or tingling in your arm, hand, or fingers. ? Your arm, hand, or fingers feel cold and turn blue, white, or law. This information is not intended to replace advice given to you by your health care provider. Make sure you discuss any questions you have with your health care provider. Document Revised: 07/03/2023 Document Reviewed: 07/03/2023 [employer] Patient Education ? 2023 [employer] Cervical Sprain A cervical sprain is also called a neck sprain. It is a stretch or tear in one or more ligaments in the neck (more content not included)... Normal [facility] Urgent Care Note- Provideron 09-24-2024 Urgent Care Note- Provider Patient: AMANDA JONES Age: 39 years Sex: FEMALE : 1985 Associated Diagnoses: Torticollis; Shoulder strain; Cervical strain Author: Prateek Mckeon PA-C History of Present Illness This is a 39-year-old who presents to the urgent care with concerns of sudden onset of left shoulder and left neck pain that started suddenly. She denies any injury. She states she was at work when it started. With no injury however and her previous history of neck and shoulder problems she relates this as not being a work related injury. She has tried Tylenol and Motrin without good relief. She has been resting it without good relief. She is right-handed. No fevers, chills or malaise. No other joint pains or myalgias. No numbness, tingling or weakness. No skin rashes or lesions. There are no other associated symptoms. Movement and laying down to sleep makes it worse. Nothing else makes the symptoms better or worse. Symptoms are described as sudden onset, moderate in nature and persisting. Health Status Allergies: Allergic Reactions (Selected) No known allergies. Medications: (Selected) Documented Medications Documented PARoxetine 40 mg oral tablet: 40 mg = 1 tab(s), PO, Daily, 0 Refill(s) omeprazole 40 mg oral delayed release capsule: TAKE 1 CAPSULE BY MOUTH IN THE MORNING BEFORE MEAL(S). DO NOT CRUSH OR CHEW. Past Medical/ Family/ Social History Medical history: Resolved Sprain of left foot ([id number]): Resolved. Contusion of left foot ([id number]): Resolved.. Surgical history: No active procedure history items have been selected or recorded.. Family history: No family history items have been selected or recorded.. Social history: Social & Psychosocial Habits Alcohol 01/16/2024 Alcohol Use: Current Frequency: 1-2 times per month 01/16/2024 Alcohol Use: Past Comment: Patient denies - 08/26/2023 09:26 - Katie Hendrickson RN Substance Use 01/07/2023 Substance use: Never 01/16/2024 Substance use: Never Tobacco 05/05/2023 Smoking tobacco use: Never tobacco user 01/16/2024 Smoking tobacco use: Never tobacco user Electronic Cigarette/Vaping 05/05/2023 Electronic Cigarette Use: Never 01/16/2024 Electronic Cigarette Use: Never . Problem list: Active Problems (2) Depression IBS (irritable bowel syndrome) . Physical Examination Vital Signs Vital Signs 09/24/2024 13:43 EDT Temperature Oral 36.9 DegC Peripheral Pulse Rate 98 bpm Respiratory Rate 18 br/min Systolic Blood Pressure 118 mmHg Diastolic Blood Pressure 73 mmHg SpO2 100 % Oxygen Therapy Room air BP Method Automatic . GENERAL: Awake, alert and oriented to person, place and situation. Well nourished, well developed, non toxic, NAD. NECK: No bony TTP, limited flexion and extension as well as rotation secondary to spasm. No meningismus, trachea is midline. TTP left paraspinous muscles and left trapezius with spasm. No anterior or posterior lymphadenopathy. CARDIOVASCULAR: Regular rate and rhythm. +S1 +S2. No murmurs or rubs. RESPIRATORY: Clear to auscultation bilaterally without rales, rhonchi or wheeze. EXTREMITIES: Generalized TTP left posterior shoulder and left trapezius. No particular bony TTP. Fair ROM but with pain. No cyanosis, clubbing or edema. Good muscle tone, limited abduction and adduction to about 110 degrees. Brisk cap refill distally, radial pulses 2+ bilaterally. SKIN: Normal inspection, no visualized rash. NEUROLOGIC: Light touch sensation in tact, strength 5/5 in bilateral upper extremities. Normal mentation. No focal neurological deficits appreciated. Medical Decision Making Orders Launch Orders Radiology: XR Spine Cervical 6 or More Views (Order): 09/24/2024 13:54 EDT Stat, onset of pain while lifting at work, Allow Modification Per Radiologist, Transport Mode: Cart XR Shoulder Complete Left (Order): 09/24/2024 13:54 EDT Stat, onset of pain while lifting at work 4 days ago, Allow Modification Per Radiologist, Transport Mode: Cart. X-rays interpreted by myself shows no acute bony abnormality or dislocation. Rest, ice or heat, gentle massage and gentle stretching. Prednisone as directed for 5 days and as needed muscle relaxers. Do not work or drive on the muscle relaxers. Add Tylenol. Return with new, or worsening symptoms, or symptoms failing to improve as expected and the patient voiced their understanding. Questions answered. Follow-up with their family doctor as directed, return here sooner as needed. Impression and Plan Diagnosis Torticollis (CPD75-WJ M43.6, Discharge, Medical) Shoulder strain (VWX09-AM S46.919A, Discharge, Medical) Cervical strain (PWU99-VT S16.1XXA, Discharge, Medical) Plan Condition: Stable. Disposition: Discharged: Time 09/24/2024 14:37:00, to home. Prescriptions: Launch prescriptions Pharmacy: cyclobenzaprine 10 mg oral tablet (Prescribe): 10 mg = 1 tab(s), Oral, TID, for 5 day(s), PRN: for spasm, 15 tab(s), 0 Refill(s) predniSONE 20 mg oral t (more content not included)... Normal [facility] Urgent Care [place] 024 Urgent Care Record [facility] ? Urgent Care [address] [place] [address] PATIENT DISCHARGE INSTRUCTIONS Patient Information Name: AMANDA JONES Age: 39 Years Date of : 1985 Reason For Visit: UC - Shoulder Pain or Swelling; NECK/LEFT SHOULDER PAIN Arrival Time: 09/24/2024 13:35:53 Primary Care Physician: Summer Bolden Attending Physician: Prateek Mckeon PA-C Comment: Visit Diagnosis: Diagnoses This Visit Cervical strain (S16.1XXA) Shoulder strain (S46.919A) Torticollis (M43.6) UC - Shoulder Pain or Swelling ([id number]) If you received any narcotics, sedation, or any other medication that causes drowsiness for the next 24 hours, unless otherwise directed: ? Do not drive a car. ? Do not operate machinery such as power tools, lawn mowers, drills, sewing machines, or stoves ? Avoid alcoholic beverages and drugs for allergies, nerves, or sleep ? Do not make important personal or business decisions or sign any legal documents With: Address: When: Summer Bolden [address] [place] [phone] Business (1) Within 3 to 5 days Medication Information: The exam and treatment you received today in the [facility] were for an urgent problem and are not intended as complete care. It is important for you to follow up with a doctor, nurse practitioner, or physician?s behavioral assistant for ongoing care. If your symptoms become worse or you do not improve as expected and you are unable to reach your usual health care provider, you should return to the Emergency Department, we are available 24 hours a day. For those patients who have received Radiology results, the interpretation of your X-ray as given to you by our Urgent Care physician is only a preliminary report. The Radiologist will review your films and if there is a change in the diagnosis you will be notified by phone. Please make sure you have provided a working phone number so we can reach you if necessary. In the event that you had a lab culture while you were a patient in the Urgent Care, you will be notified by phone if there is a need to change your antibiotic. Please make sure you have provided a working phone number so we can reach you if necessary. [facility] has provided you with a complete list of medications post discharge. Please inform your manager life/provider of your visit and for further instruction on these medications. Any specific questions regarding your chronic medications and dosages should be discussed with your primary care physician(s) and/or pharmacist. New Medications [facility], [address] [place], [place] [id number], [phone] cyclobenzaprine (cyclobenzaprine 10 mg oral tablet) 1 tab(s) Oral (given by mouth) 3 times per day as needed for spasm for 5 Days. Refills: 0. predniSONE (predniSONE 20 mg oral tablet) 2 tab(s) Oral (given by mouth) every day for 5 Days. Refills: 0. Additional medications on your home medication list not specifically addressed. Please contact the ordering physician if you have questions about these medications. PARoxetine (PARoxetine 40 mg oral tablet) 1 tab(s) Oral (given by mouth) every day. Visit Information Allergies: Substance Reaction Symptoms Type Comments No known allergies Drug Vital Signs: Vitals and Measurements this Visit (last charted value for your 09/24/2024 visit) Vital Signs This Visit Temperature Oral: 36.9 DegC Peripheral Pulse Rate: 98 bpm Respiratory Rate: 18 br/min Systolic Blood Pressure: 118 mmHg Diastolic Blood Pressure: 73 mmHg SpO2: 100 % Oxygen Therapy: Room air Blood Pressure Method: Automatic Problems List: Problem Onset Comments Depression IBS (irritable bowel syndrome) Patient Education Shoulder Sprain A shoulder sprain is a partial or complete tear in one of the tough, fiber-like tissues (ligaments) in the shoulder. The ligaments in the shoulder help to hold the shoulder in place. What are the causes? This condition may be caused by: ? A fall. ? A hit to the shoulder. ? A twist of the arm. What increases the risk? You are more likely to develop this condition if you: ? Play sports. ? Have problems with balance or coordination. What are the signs or symptoms? Symptoms of this condition include: ? Pain when moving the shoulder. ? Limited ability to move the shoulder. ? Swelling and tenderness on top of the shoulder. ? Warmth in the shoulder. ? A change in the shape of the shoulder. ? Redness or bruising on the shoulder. How is this diagnosed? This condition is diagnosed with: ? A physical exam. During the exam, you may be asked to do simple exercises with your shoulder. ? Imaging tests such as X-rays, MRI, or a CT scan. These tests can show how severe the sprain is. How is this treated? This condition may be treat (more content not included)... [facility] XR Shoulder Complete Lefton 09-24-2024 XR Shoulder Complete Left X-RAY OF THE left shoulder HISTORY: onset of pain while lifting at work 4 days ago COMPARISON: There are no previous studies available for comparison. TECHNIQUE: 3 views of the left shoulder. FINDINGS: BONE DENSITY: Normal. JOINTS: No acute abnormality. FRACTURE: No acute fracture. DISLOCATION: None. SOFT TISSUES: No radiopaque foreign body. IMPRESSION: No acute osseous or joint abnormality. Final Dictated by: Manny Man MD Dictated DT/TM: 09/24/24 3:09 Signed (Electronic Signature): Manny Man MD 09/24/24 3:10 pm Technologist: PHILL [facility] XR Spine Cervical 6 or More Viewson 09-24-2024 XR Spine Cervical 6 or More Views X-RAY OF THE CERVICAL SPINE. INDICATION: Pain. COMPARISON: None. TECHNIQUE: 5 views of cervical spine. FINDINGS: No acute vertebral body compression fracture. Disc spaces are normal. There is slight reversal of the cervical lordosis, which is nonspecific and may be positional. No significant listhesis. No high-grade neural foraminal stenosis. IMPRESSION: No acute abnormality of the cervical spine. Final Dictated by: Manny Man MD Dictated DT/TM: 09/24/24 3:10 Signed (Electronic Signature): Manny Man MD 09/24/24 3:12 pm Technologist: PHILL Casillas [facility] XR cervical spine w flex/ext on 06-17-2024 XR cervical spine w flex/ext [facility] [address] [place] [id number] XRay Report Signed Patient: Amanda Jones MR#: [id number] : 1985 Acct:[id number] Age/Sex: 39 / F ADM Date: 06/17/24 Loc: XD Room: Type: [facility] Attending Dr: Isaias Stoner MD Copies to: Isaias Stoner MD Ordering Provider: Isaias Stoner MD Date of Service: 06/17/24 XR/XR cervical spine w flex/ext: NECK PAIN ([id number]) XR/XR shoulder LT min 2V*: SHOULDER PAIN ([id number]) XR/XR elbow LT min 3V*: ELBOW PAIN 4 views leftelbow plain film COMPARISON :None HISTORY: Posterior neck pain. Left shoulder pain. Left elbow pain ACUTE FINDINGS: None DEGENERATIVE CHANGE: Unremarkable SOFT TISSUE FINDINGS: Unremarkable JOINT EFFUSION: None POSTOP CHANGES: None BONE MINERALIZATION: Adequate XR/XR elbow LT min 3V* IMPRESSION: No acute findings. 3 views left shoulder Adequate alignment. No acute bony findings or significant degeneration. Unremarkable soft tissues. IMPRESSION: Unremarkable exam. 7 views of cervical spine with flexion extension views No hypermobility. Reversal cervical lordosis. Mild midcervical spondylosis. Mild facet degeneration. Mild C5-C6 bilateral bony neural foraminal narrowing no acute bony findings. Unremarkable soft tissues. IMPRESSION: No hypermobility. Reversal cervical lordosis. Mid cervical degenerative change. Impression dictated by: Alec Lancaster M.D.06/17/2024 4:11 PM Dictation Location: [place] [address] Transcribed By: [facility] 06/17/24 1611 Dictated By: Alec Lancaster DO 06/17/24 1609 Signed By: 06/17/24 1611 Normal [facility] Bacteria [Presence] in Urine by AutomatedOrdered By: Isaias Stoner on 05-06-2024 Bacteria Auto Ql (U) None seen [HPF] None Seen [facility] Bilirubin Test strip Ql (U)O rdered By: Isaias Stoner on 05-06-2024 Bilirubin Ql (U) Negative Negative [facility] Color of Urine by AutoOrdere d By: Isaias Stoner on 05-06-2024 Color (U) Light-yellow Normal Yellow [facility] Comment on above: Order Comment: Name Collection Type:: Clean-Voided Midstream Performed By: #### A DDONUAPLUS, CREAT #### [address] #### C4, C3, CH50 #### [facility] , Complement C3on 05-06-2024 Complement C3 130 mg/dL Normal 82-167 [facility] Comment on above: Result Comment: Perf ormed at: [facility] [place] [id number] Logistics Assistant: Inder Torrez PhD, Phone: [phone] Performed By: #### A DDONUAPLUS, CREAT #### [address] #### C4, C3, CH50 #### [facility] , Complement C4on 05-06-2024 Complement C4 31 mg/dL Normal 12-38 [facility] Comment on above: Result Comment: PERF ORMED BY: [place] [address] PATHOLOGIST [employer] MODEL BREANN PAK M.D. Performed By: #### A DDONUAPLUS, CREAT #### [address] #### C4, C3, CH50 #### [facility] , Complement Total (CH50)on Complement Total (CH50) >60 Normal >41 [facility] Comment on above: Result Comment: Age Male Female 1 - 30 days Not Estab. Not Estab. 31 days - 6 months >32 >20 7 months - 17 years >39 >39 >17 years >41 >41 NOTE: The adult ( >17 years ) reference interval range is used to flag abnormals on this report. If the patient is 17 years old or younger, use the table above to determine out of range values. Performed at: [facility] [address] [id number] Logistics Assistant: Inder Torrez PhD, Phone: [phone] PERFORMED BY: [place] [address] PATHOLOGIST [employer]ANCE MODEL BREANN PAK M.D. Performed By: #### A DDONUAPLUS, CREAT #### [address] #### C4, C3, CH50 #### [facility] , Creatinineon 05-06-2024 GFR/1.73 sq M.predicted MDRD (S/P/Bld) [Vol rate/Area] mL/min/{1.73_m2} Normal [facility] Comment on above: Result Comment: PERF ORMED BY: [place] [address] PATHOLOGIST FREE LANCE MODEL BREANN PAK M.D. Performed By: #### A DDONUAPLUS, CREAT #### [address] #### C4, C3, CH50 #### [facility] , Creatinine [Mass/volume] in Serum or PlasmaOrdered By: Isaias Stoner on 05-06-2024 Creatinine [Mass/Vol] 0.71 mg/dL Normal 0.60-1.20 [facility] Comment on above: Performed By: #### A DDONUAPLUS, CREAT #### [address] #### C4, C3, CH50 #### [facility] , Dipstick and Microscopicon 0 05-06-2024 Bacteria,Urine None Seen Normal None Seen [facility] Comment on above: Order Comment: Name Collection Type:: Clean-Voided Midstream Performed By: #### A DDONUAPLUS, CREAT #### [address] #### C4, C3, CH50 #### [facility] , Bilirubin,Urine Negative Normal Negative [facility] Comment on above: Order Comment: Name Collection Type:: Clean-Voided Midstream Performed By: #### A DDONUAPLUS, CREAT #### [address] #### C4, C3, CH50 #### [facility] , Glucose Ql (U) Normal Normal Normal [facility] Comment on above: Order Comment: Name Collection Type:: Clean-Voided Midstream Performed By: #### A DDONUAPLUS, CREAT #### [address] #### C4, C3, CH50 #### [facility] , Hyaline Casts,Urine None Normal 0-8 [facility] Comment on above: Order Comment: Name Collection Type:: Clean-Voided Midstream Performed By: #### A DDONUAPLUS, CREAT #### [address] #### C4, C3, CH50 #### [facility] , Mucus,Urine Rare Normal [facility] Comment on above: Order Comment: Name Collection Type:: Clean-Voided Midstream Result Comment: PERF ORMED BY: [place] [address] PATHOLOGIST FREE LANCE MODEL BREANN PAK M.D. Performed By: #### A DDONUAPLUS, CREAT #### [address] #### C4, C3, CH50 #### [facility] , Nitrite,Urine Negative Normal Negative [facility] Comment on above: Order Comment: Name Collection Type:: Clean-Voided Midstream Performed By: #### A DDONUAPLUS, CREAT #### [address] #### C4, C3, CH50 #### [facility] , Occult Blood,Urine Negative Normal Negative [facility] Comment on above: Order Comment: Name Collection Type:: Clean-Voided Midstream Performed By: #### A DDONUAPLUS, CREAT #### [place] [address] [place] #### C4, C3, CH50 #### [facility] , Protein,Urine Negative Normal Negative [facility] Comment on above: Order Comment: Name Collection Type:: Clean-Voided Midstream Performed By: #### A DDONUAPLUS, CREAT #### [address] #### C4, C3, CH50 #### [facility] , RBC,Urine 1-2 Normal 0-4 [facility] Comment on above: Order Comment: Name Collection Type:: Clean-Voided Midstream Performed By: #### A DDONUAPLUS, CREAT #### [address] #### C4, C3, CH50 #### [facility] , Specificy [place],Urine 1.021 Normal 1.001-1.030 [facility] Comment on above: Order Comment: Name Collection Type:: Clean-Voided Midstream Performed By: #### A DDONUAPLUS, CREAT #### [address] #### C4, C3, CH50 #### [facility] , Squamous Epithelial Cell,Urine 5-9 High 0-2 [facility] Comment on above: Order Comment: Name Collection Type:: Clean-Voided Midstream Performed By: #### A DDONUAPLUS, CREAT #### [place] [address] [place] #### C4, C3, CH50 #### [facility] , Urobilinogen,Urine Normal Normal Normal [facility] Comment on above: Order Comment: Name Collection Type:: Clean-Voided Midstream Performed By: #### A DDONUAPLUS, CREAT #### [facility] [address] [place] [address] [place] #### C4, C3, CH50 #### [facility] , WBC,Urine None Seen Normal 0-4 [facility] Comment on above: Order Comment: Name Collection Type:: Clean-Voided Midstream Performed By: #### A DDONUAPLUS, CREAT #### [facility] [address] [place] [address] [place] #### C4, C3, CH50 #### [facility] , Epithelial cells.squamous [# /area] in Urine sediment by Automated countOrdered By: Isaias Stoner on 05-06-2024 Epithelial cells.squamous Auto (Urine sed) [#/Area] 5-9 [HPF] High 0-2 [facility] Erythrocytes [#/area] in Uri ne sediment by Automated countOrdered By: Isaias Stoner on 05-06-2024 RBC Auto (Urine sed) [#/Area] 1-2 [HPF] 0-4 [facility] Glucose [Mass/volume] in Uri ne by Test stripOrdered By: Isaias Stoner on 05-06-2024 Glucose Test strip (U) [Mass/Vol] Normal mg/dL Normal [facility] Hemoglobin Test strip Ql (U) Ordered By: Isaias Stoner on 05-06-2024 Hemoglobin Ql (U) Negative Negative [facility] Hyaline casts [#/area] in Ur ine sediment by Automated countOrdered By: Isaias Stoner on 05-06-2024 Hyaline casts Auto (Urine sed) [#/Area] None [LPF] 0-8 [facility] Ketones [Presence] in Urine by Test stripOrdered By: Isaias Stoner on 05-06-2024 Ketones Ql (U) Negative Normal Negative [facility] Comment on above: Order Comment: Name Collection Type:: Clean-Voided Midstream Performed By: #### A DDONUAPLUS, CREAT #### [facility] [address] [place] [address] [place] #### C4, C3, CH50 #### [facility] , Leukocyte esterase [Presence ] in Urine by Test stripOrdered By: Isaias Stoner on 05-06-2024 Leukocyte esterase Test strip Ql (U) Negative Normal Negative [facility] Comment on above: Order Comment: Name Collection Type:: Clean-Voided Midstream Performed By: #### A DDONUAPLUS, CREAT #### [facility] [address] [place] [address] [place] #### C4, C3, CH50 #### [facility] , Leukocytes [#/area] in Urine sediment by Automated countOrdered By: Isaias Stoner on 05-06-2024 WBC Auto (Urine sed) [#/Area] None seen [HPF] 0-4 [facility] Mucus [Presence] in Urine by AutomatedOrdered By: Isaias Stoner on 05-06-2024 Mucus Auto Ql (U) Rare [LPF] [facility] Nitrite Test strip Ql (U)Ord ered By: Isaias Stoner on 05-06-2024 Nitrite Ql (U) Negative Negative [facility] No Panel InformationOrdered By: Isaias Stoner on 05-06-2024 Estimated GFR (CKD-EPI) > 60.0 mL/Min [facility] Creatinine Clearance (Chem N/A [facility] Total Complement (CH50) >60 U/mL >41 [facility] Comment on above: Age Male Female 1 - 30 days Not Estab. Not Estab. 31 days - 6 months >32 >20 7 months - 17 years >39 >39 >17 years >41 >41 NOTE: The adult ( >17 years ) reference interval range is used to flag abnormals on this report. If the patient is 17 years old or younger, use the table above to determine out of range values.Performed at: [facility] [id number] Director: Inder Torrez PhD, Phone: [phone] Protein Test strip (U) [Mass /Vol]Ordered By: Isaias Stoner on 05-06-2024 Protein (U) [Mass/Vol] Negative Negative [facility] Serum or plasma complement C 3 measurement (mass/volume)Ordered By: Isaias Stoner on 05-06-2024 Complement C3 [Mass/Vol] 130 mg/dL 82-167 [facility] Comment on above: Performed at: - [facility], [place] [id number] Director: Inder Torrez PhD, Phone: [phone] Serum or plasma complement C 4 measurement (mass/volume)Ordered By: Isaias Stoner on 05-06-2024 Complement C4 [Mass/Vol] 31 mg/dL 12-38 [facility] Specific gravity Test strip (U) [Rel density]Ordered By: Isaias Stoner on 05-06-2024 Specific gravity (U) [Rel density] 1.021 1.001-1.030 [facility] Urine appearanceOrdered By: Isaias Stoner on 05-06-2024 Appearance (U) Clear Normal Clear [facility] Comment on above: Order Comment: Name Collection Type:: Clean-Voided Midstream Performed By: #### A FADI STEPHENAT #### [address] #### C4, C3, CH50 #### [facility] , Urobilinogen Test strip (U) [Mass/Vol]Ordered By: Isaias Stoner on 05-06-2024 Urobilinogen (U) [Mass/Vol] Normal mg/dL Normal [facility] pH of Urine by Test stripOrd ered By: Isaias Stoner on 05-06-2024 pH (U) 7.5 [pH] Normal 5.0-9.0 [facility] Comment on above: Order Comment: Name Collection Type:: Clean-Voided Midstream Performed By: #### A DDJOSEPH CREAT #### [facility] [address] [id number] [facility] #### C4, C3, CH50 #### [facility] , US Pelvic Complete w/Transva ginalon 01-24-2023 US Pelvic Complete w/Transvaginal Findings: Transabdominal and transvaginal sonography performed with transvaginal imaging obtained to better assess pelvic anatomy. Uterus measures 8.5 x 4.6 x 6.7 cm. Endometrium measures 1.3 cm. A 3.5 x 2.4 x 3.1 cm area of heterogenous echogenicity is found caudally within the posterior uterine body. Color-flow without anomaly. Right ovary measures 2.2 x 2.6 x 1.6 cm and is normal in size, shape, echogenicity, and color flow. Left ovary not visualized. No free fluid. No adnexal masses. IMPRESSION: Fibroid uterus. Left ovary not visualized. Report reported and signed by Maynor Moseley on 01/24/2023 1347 Normal [facility] Reinforced Concrete Inspector US Pelvic Complete w/Transva ginalon 11-02-2022 US Pelvic Complete w/Transvaginal FINDINGS: Uterus 7.8 x 6.1 x 5.5 cm Endometrium 15 mm Right Ovary3.2 x 3.2 x 2.0 cm Left Ovary3.9 x 2.7 x 2.2 cm Heterogeneous 3.0 x 4.0 x 2.7 cm mass posterior to the uterine body, subserosal uterine etiology vs extra-uterine mass. This results in anterior displacement of the uterine body, not associated with either ovary. Thickened endometrium, no endometrial fluid collection or mass. Bilateral follicular ovaries. IMPRESSION: Retrouterine mass, suserosal fibroid vs extra-uterine neoplastic process. As clinically indicated, pelvic MRI may be of assistance for further characterization. Report reported and signed by Kamron Hastings on 11/05/2022 0933 Normal [facility] Specialist Coding Summary.on 06-12-2017 Coding Summary. CODING DATE: 06/12/2017 FINAL [facility] STATUS: Home (Routine DC) PAYOR: Commercial Insurance APC DESCRIPTION 5521 Level 1 Imaging without Contrast ADMIT DX: REASON FOR VISIT DX: M79.672 Pain in left foot FINAL DX: PRINCIPAL: M79.672 Pain in left foot SECONDARY: PYMT PROC APC STAT DESCRIPTION DOCTOR NAME DATE NOTE: The code number assigned matches the documented diagnosis and / or procedure in the patient's chart. However, the narrative phrase printed from the coding software may appear abbreviated, or result in slightly different terminology. Coded By: Nayeli Smart Date Saved: 06/12/2017 04:41 pm [facility] XR Foot 3+ Views Lefton 06-01 XR Foot 3+ Views Left Exam Date/Time:06/11/2017 16:14 EDTReason for Exam:M79.672, Foot pain, leftReportIMPRESSIO N: NEGATIVE LEFT FOOT.CLINICAL HISTORY: M79.672, Foot pain, left. COMMENT: 3 views. There is a posterior heel spur. The bones of the left foototherwise appear normal without evidence of fracture or dislocation. FINAL REPORT Dictated: 06/12/2017 4:05 pm Ryan Miles M.D. Signed (Electronic Signature): 06/12/2017 4:05 pm Signed by: Ryan Miles M.D. Transcribed by: GLORIA Technologist: MARIBEL [facility] Vital Signs Date Time Vital Sign Value Performing Clinician Belen crawford 2025 10:26-0400 Body mass index (BMI) [Ratio] 29.91 kg/m2 Pilar Gonzalez PA Work Phone: [facility] 2025 10:26-0400 Body weight 86.64 kg Pilar Gonzalez PA Work Phone: [facility] 2025 10:26-0400 Diastolic blood pressure 64 mm[Hg] Pilar Gonzalez PA Work Phone: [facility] 2025 10:26-0400 Systolic blood pressure 110 mm[Hg] Pilar Gonzalez PA Work Phone: [facility] 02-03-2025 10:57-0500 Body mass index (BMI) [Ratio] 30.7 kg/m2 Rik Gabi DO Work Phone: [facility] 02-03-2025 10:57-0500 Body weight 88.91 kg Rik Gabi DO Work Phone: [facility] 02-03-2025 10:57-0500 Diastolic blood pressure 70 mm[Hg] Rik Gabi DO Work Phone: [facility] 02-03-2025 10:57-0500 Systolic blood pressure 120 mm[Hg] Rik Gabi DO Work Phone: [facility] 02-03-2025 09:36-0500 Body height 170.2 cm Ying Shelton CLIENT CONSULTANT Work Phone: [facility] 02-03-2025 09:36-0500 Body mass index (BMI) [Ratio] 30.51 kg/m2 Ying Shelton CLIENT CONSULTANT Work Phone: [facility] 02-03-2025 09:36-0500 Body weight 88.36 kg Ying Shelton CLIENT CONSULTANT Work Phone: [facility] 02-03-2025 09:36-0500 Diastolic blood pressure 72 mm[Hg] Ying Shelton CLIENT CONSULTANT Work Phone: [facility] 02-03-2025 09:36-0500 Heart rate 104 /min Ying Shelton CLIENT CONSULTANT Work Phone: [facility] 02-03-2025 09:36-0500 SaO2% (BldA) [Mass fraction] 98 % Ying Shelton CLIENT CONSULTANT Work Phone: [facility] 02-03-2025 09:36-0500 Systolic blood pressure 118 mm[Hg] Ying Shelton CLIENT CONSULTANT Work Phone: [facility] 01-06-2025 09:40-0500 Body height 170.2 cm Summer Bolden MD Work Phone: [facility] 01-06-2025 09:40-0500 Body mass index (BMI) [Ratio] 30.76 kg/m2 Summer Bolden MD Work Phone: [facility] 01-06-2025 09:40-0500 Body weight 89.09 kg Summer Bolden MD Work Phone: [facility] 01-06-2025 09:40-0500 Diastolic blood pressure 76 mm[Hg] Summer Bolden MD Work Phone: [facility] 01-06-2025 09:40-0500 Heart rate 95 /min Summer Bolden MD Work Phone: [facility] 01-06-2025 09:40-0500 Respiratory rate 18 /min Summer Bolden MD Work Phone: [facility] 01-06-2025 09:40-0500 SaO2% (BldA) [Mass fraction] 99 % Summer Bolden MD Work Phone: [facility] 01-06-2025 09:40-0500 Systolic blood pressure 122 mm[Hg] Summer Bolden MD Work Phone: [facility] 12-30-2024 10:01-0500 Body mass index (BMI) [Ratio] 30.57 kg/m2 Summer Bolden MD Work Phone: [facility] 12-30-2024 10:01-0500 Body temperature 97.11 [degF] Summer Bolden MD Work Phone: [facility] 12-30-2024 10:01-0500 Body weight 88.54 kg Summer Bolden MD Work Phone: [facility] 12-30-2024 10:01-0500 Diastolic blood pressure 80 mm[Hg] Summer Bolden MD Work Phone: [facility] 12-30-2024 10:01-0500 Heart rate 101 /min Summer Bolden MD Work Phone: [facility] 12-30-2024 10:01-0500 SaO2% (BldA) [Mass fraction] 98 % Summer Bolden MD Work Phone: [facility] 12-30-2024 10:01-0500 Systolic blood pressure 118 mm[Hg] Summer Bolden MD Work Phone: [facility] 12-16-2024 09:40-0500 Body mass index (BMI) [Ratio] 30.54 kg/m2 Carie Benedict CNM Work Phone: [facility] 12-16-2024 09:40-0500 Body weight 88.45 kg Carie Benedict [facility] Work Phone: [facility] 12-16-2024 09:40-0500 Diastolic blood pressure 80 mm[Hg] Carie Benedict CN Work Phone: [facility] 12-16-2024 09:40-0500 Systolic blood pressure 120 mm[Hg] Carie Benedict [facility] Work Phone: [facility] Encounters Encounter Date Encounter Type Care Provider Facility Start: 02-17-2025 End: 02-17-2025 ambulatory PILAR GONZALEZ Not Available Start: 2025 End: 2025 ambulatory PILAR GONZALEZ Not Available Start: 2025 End: 2025 Postop follow up visit related to original px Pilar JARRELL Work Phone: [facility] Comment on above: Rib pain on left omar e; Urinary tract infection without hematuria, site unspecified Start: 02-10-2025 End: 02-10-2025 ambulatory JAMES JAMES Not Available Start: 02-04-2025 End: 02-04-2025 ambulatory Rik Gabi Facility:[facility] Start: 02-04-2025 End: 02-04-2025 Departed Referred Rik Gabi DO Work Phone: [facility] Start: 02-04-2025 End: 02-04-2025 Clinisync Result Encounter Rik Gabi DO Work Phone: [facility] Unsolicited Start: 02-04-2025 End: 02-04-2025 Clinisync Result Encounter Rik Gabi DO Work Phone: [facility] Unsolicited Start: 02-03-2025 End: 02-03-2025 Bamboo flowsheet James FARMERW [facility] Start: 02-03-2025 End: 02-03-2025 Bamboo flowsheet James James FOOD PRODUCT INSPECTOR [facility] Start: 02-03-2025 End: 02-03-2025 Telephone encounter Summer Bolden MD Work Phone: [facility] Start: 02-03-2025 End: 02-03-2025 Office outpatient visit 15 minutes Rik Gabi DO Work Phone: [facility] Comment on above: Fibroid; DUB (dysfunctional uterine bleeding); Pelvic pain in female Start: 02-03-2025 End: 02-03-2025 ambulatory RIK GABI Not Available Start: 02-03-2025 End: 02-03-2025 Office outpatient visit 25 minutes Ying Shelton CLIENT CONSULTANT Work Phone: [facility] Comment on above: Acute cystitis witho ut hematuria (Primary Dx); Allergic reaction, initial encounter; Inflammation of cervix Start: 02-03-2025 End: 02-03-2025 ambulatory YING SHELTON Not Available Start: 02-02-2025 Emergency department patient visit [facility] Facility:[facility] Start: 02-01-2025 End: 02-01-2025 Telephone encounter Summer Bolden MD Work Phone: [facility] Start: 02-01-2025 Emergency department patient visit [facility] Facility:[facility] Start: 01-31-2025 Emergency department patient visit [facility] Facility:[facility] Start: 01-28-2025 End: 01-28-2025 Telephone encounter Carie Laurao CNM Work Phone: [facility] Start: 01-20-2025 End: 01-20-2025 Bamboo flowsheet James James FOOD PRODUCT INSPECTOR [facility] Start: 01-20-2025 End: 01-20-2025 Bamboo flowsheet James James FOOD PRODUCT INSPECTOR [facility] Start: 01-20-2025 End: 01-20-2025 ambulatory JAMES JAMES Not Available Start: 01-14-2025 End: 01-14-2025 Bamboo flowsheet Carie L Floro CNM Work Phone: [facility] Start: 01-14-2025 End: 01-14-2025 Bamboo flowsheet Carie L Floro CNM Work Phone: [facility] Start: 01-14-2025 End: 01-14-2025 ambulatory CARIE BENEDICT Not Available Start: 01-06-2025 End: 01-06-2025 Bamboo flowsheet Summer Bolden MD Work Phone: [facility] Start: 01-06-2025 End: 01-06-2025 Bamboo flowsheet Summer Bolden MD Work Phone: [facility] Start: 01-06-2025 End: 01-06-2025 Patient encounter status Summer Bolden MD Work Phone: [facility] Work Phone: Start: 01-06-2025 End: 01-06-2025 Periodic preventive med est patient 18-39 yrs Summer Bolden MD Work Phone: [facility] Comment on above: Routine general medi jude examination at a health care facility (Primary Dx); Acute cough; Screening mammogram for breast cancer Start: 01-06-2025 End: 01-06-2025 ambulatory SUMMER BOLDEN Not Available Start: 12-31-2024 End: 12-31-2024 Telephone encounter Summer Bolden MD Work Phone: [facility] Start: 12-30-2024 End: 12-30-2024 Bamboo flowsheet Summer Bolden MD Work Phone: [facility] Start: 12-30-2024 End: 12-30-2024 Bamboo flowsheet Summer Bolden MD Work Phone: [facility] Start: 12-30-2024 End: 12-30-2024 ambulatory SUMMER BOLDEN Not Available Start: 12-30-2024 End: 12-30-2024 Office outpatient visit 15 minutes Summer Bolden MD Work Phone: [facility] Comment on above: Episode of recurrent major depressive disorder, unspecified depression episode severity (CMS/HCC) (Primary Dx); Anxiety Start: 12-29-2024 ambulatory Summer Bolden Facility:[facility] Start: 12-18-2024 End: 12-18-2024 ambulatory CARIE L FLORO Not Available Start: 12-17-2024 End: 12-17-2024 Bamboo flowsheet James James FOOD PRODUCT INSPECTOR [facility] Start: 12-17-2024 End: 12-17-2024 Bamboo flowsheet James James FOOD PRODUCT INSPECTOR [facility] Start: 12-17-2024 End: 12-17-2024 ambulatory JAMES JAMES Not Available Start: 12-16-2024 End: 12-16-2024 Bamboo flowsheet Carie L Floro CNM Work Phone: [facility] Start: 12-16-2024 End: 12-16-2024 Bamboo flowsheet Carie L Floro CNM Work Phone: [facility] Start: 12-16-2024 End: 12-16-2024 Office outpatient visit 15 minutes Carie L Floro CNM Work Phone: [facility] Comment on above: Irregular periods (P rimary Dx); Pelvic pain in female; Other depression (CMS/HCC) Start: 12-16-2024 End: 12-16-2024 ambulatory CARIE L FLORO Not Available Start: 12-14-2024 ambulatory Melo JARRELL Facility:[facility] Start: 09-24-2024 End: 09-24-2024 ambulatory [facility] Facility:[facility] Start: 06-17-2024 End: 06-17-2024 Patient encounter procedure PA-C Marylu Hemmer Work Phone: [facility] [place] Work Phone: Start: 06-17-2024 End: 06-17-2024 ambulatory PA-C Marylu Hemmer Work Phone: [facility] Work Phone: Start: 05-06-2024 End: 05-06-2024 Patient encounter procedure PA-C Marylu Hemmer Work Phone: [facility] [address] Work Phone: Start: 05-06-2024 End: 05-06-2024 ambulatory TARIQ Dale Work Phone: [facility] Work Phone: Start: 04-22-2024 End: 04-22-2024 ambulatory LUDWIG TATTERSALL Not Available Start: 04-20-2024 End: 04-20-2024 ambulatory YOLI ROMEL Not Available Start: 04-15-2024 End: 04-15-2024 ambulatory YOLI ROMEL Not Available Start: 04-13-2024 End: 04-13-2024 ambulatory LUDWIG TATTERSALL Not Available Start: 04-08-2024 End: 04-08-2024 ambulatory LUDWIG TATTERSALL Not Available Start: 04-06-2024 End: 04-06-2024 ambulatory LUDWIG TATTERSALL Not Available Start: 04-01-2024 End: 04-01-2024 ambulatory YOLI ROMEL Not Available Start: 03-30-2024 End: 03-30-2024 ambulatory LUDWIG TATTERSALL Not Available Start: 03-26-2024 End: 03-26-2024 ambulatory YOLI ROMEL Not Available Start: 03-25-2024 End: 03-25-2024 ambulatory MICHEAL MATT Not Available Start: 06-11-2017 End: 06-12-2017 Ambulatory Maki Shaffer Facility[facility] Procedures Date Procedure Procedure Detail Performing Clinician Start: 2025 Urnls dip stick/tabl et rgnt non-auto w/o micrscp Pilar JARRELL Work Phone: Start: 02-10-2025 End: 02-10-2025 Psychotherapy w/patient 60 minutes PTSD (post-traumatic stress disorder) (CMS/HCC) James FARMERW Comment on above: PTSD (post-traumatic stress disorder) (CMS/HCC); Seasonal affective disorder (CMS/HCC); Mixed obsessional thoughts and acts (CMS/HCC) Start: 02-04-2025 ALL CBC WITH AUTO DIFF Generic External Data Provider Start: 02-03-2025 End: 02-03-2025 Psychotherapy w/patient 30 minutes PTSD (post-traumatic stress disorder) (CMS/HCC) James James FOOD PRODUCT INSPECTOR Comment on above: PTSD (post-traumatic stress disorder) (CMS/HCC); Seasonal affective disorder (CMS/HCC); Mixed obsessional thoughts and acts (CMS/HCC) Start: 01-20-2025 End: 01-20-2025 Psychotherapy w/patient 45 minutes PTSD (post-traumatic stress disorder) (CMS/HCC) James James FOOD PRODUCT INSPECTOR Comment on above: PTSD (post-traumatic stress disorder) (CMS/HCC); Seasonal affective disorder (CMS/HCC) Start: 01-06-2025 STATUS COVID-19/FLU Anette Bolden MD Work Phone: Start: 12-17-2024 End: 12-17-2024 Psychotherapy w/patient 60 minutes PTSD (post-traumatic stress disorder) (CMS/HCC) James FARMERW Comment on above: PTSD (post-traumatic stress disorder) (CMS/HCC); Seasonal affective disorder (CMS/HCC) Start: 06-17-2024 Plain X-ray of left elbow PA-C Marylu DrivenBImer Work Phone: Start: 06-17-2024 Plain X-ray of left shoulder PA-C Marylu DrivenBImer Work Phone: Start: 06-17-2024 X-ray of cervical spine PA-C Marylu Dale Work Phone: Start: 11-06-2023 Microscopic observat ion [Identifier] in Cervix by Cyto stain Carie BALLESTEROS Work Phone: Plan of Treatment Date Care Activity Detail Author Start: 11-06-2026 Screening for malign ant neoplasm of cervix [facility] Start: 10-12-2026 Screening for malign ant neoplasm of cervix HPV/Cotest [facility] Start: 05-31-2025 Influenza vaccination Influenza Vacc ine (#1) [facility] Healthcare Comment on above: Postponed from 08/02 (Supply/Drug Shortage) Start: 02-24-2025 End: 02-24-2025 Social Work 02/24/2025 9:00 AM EDT Social Work [facility] [address] [place] [address] James James LSW [facility] Start: 02-17-2025 End: 02-17-2025 Patient encounter procedure 02/17/2025 2:30 PM EDT Office Visit [facility] [address] [place] [phone] Pilar Gonzalez, PA [address] [facility] [place] [address] [facility] Start: 02-16-2025 End: 02-16-2025 Patient encounter procedure 02/16/2025 1:10 PM EDT Consult [facility] [address] [place] [phone] Rik Ashley, DO [address] [facility] [address] [place], [place] [id number] [facility] Start: 02-03-2025 End: 02-03-2025 Patient encounter procedure 02/03/2025 11:00 AM EST Office Visit [facility] [address] [place] [address] Rik Ashley, DO [address] [facility] [address] [place], [place] [id number] [facility] Start: 02-03-2025 End: 02-03-2025 Professional / ancillary services management [facility] Start: 01-20-2025 End: 01-20-2025 Social Work [facility] Comment on above: Arrived Start: 01-14-2025 End: 01-14-2025 Patient encounter procedure [facility] Comment on above: Arrived Start: 01-06-2025 End: 03-06-2026 DBT Breast - bilateral screening Bilateral screening mammogram with tomosynthesis Imaging Routine Screening mammogram for breast cancer Expected: 01/06/2025, Expires: 03/06/2026 [facility] Work Phone: Comment on above: Expected: 01/06/2025 , Expires: 03/06/2026 Start: 01-06-2025 End: 01-06-2025 Patient encounter procedure [facility] Comment on above: Arrived Start: 12-30-2024 End: 12-30-2024 Patient encounter procedure 12/30/2024 10:00 AM EST Office Visit [facility] [address] [facility] [place] [phone] Summer Bolden MD [address] [facility] [place] [address] [facility] Start: 12-18-2024 End: 12-18-2024 Professional / ancillary services management 12/18/2024 2:15 PM EST Ancillary Procedure [facility] [address] [place] [phone] [facility] Start: 12-16-2024 End: 12-16-2025 US Pelvis transvaginal US pelvis transvaginal Imaging Routine Pelvic pain in female Expected: 12/16/2024, Expires: 12/16/2025 [facility] Work Phone: Comment on above: Expected: 12/16/2024 , Expires: 12/16/2025 Start: 12-16-2024 End: 12-16-2024 Patient encounter procedure 12/16/2024 9:30 AM EST Office Visit [facility] [address] [place] [phone] Carie Benedict, FAMILIA [address] [place], [place] [id number] Arrived [facility] Comment on above: Arrived Start: 08-02-2024 Influenza vaccination Influenza Vacc ine (#1) [facility] Start: 05-06-2024 Hemolytic complement CH50 level [facility] Complement C3 [Mass/volume] in Serum or Plasma [facility] Complement C4 [Mass/volume] in Serum or Plasma [facility] Payers Date Payer Category Payer Unknown [id number] 2024 Self-pay [id number] 2023 Private Health Insurance [id number] 2023 Unknown [id number] 2023 Unknown [id number] 2017 Unknown 1987 Unknown [id number] 2.16.840.1.116019.3.579.2.8 1987 Unknown [id number] 2.16.840.1.165045.3.579.2. 1987 Unknown [id number] 2.16.840.1.537299.3.579.2. 1987 Unknown [id number] 2.16.840.1.070592.3.579.2. 1987 Unknown [id number] 2.16.840.1.368870.3.579.2. 1987 Unknown [id number] 2.16.840.1.899891.3.579.2. 1987 Unknown [id number] 2.16.840.1.680311.3.579.2.1258 1987 Unknown [id number] 2.16.840.1.033479.3.579.2.1258 1987 Unknown [id number] 2.16.840.1.713103.3.579.2.1258 1987 Unknown [id number] 2.16.840.1.217083.3.579.2.1258 1987 Unknown [id number] 2.16.840.1.346258.3.579.2.1258 1987 Unknown [id number] 2.16.840.1.686025.3.579.2.1258 1987 Unknown [id number] 2.16.840.1.245351.3.579.2.1258 1987 Unknown [id number] 2.16.840.1.825055.3.579.2.1258 1987 Unknown [id number] 2.16.840.1.049565.3.579.2.1258 1987 Unknown [id number] 2.16.840.1.263426.3.579.2.1258 1987 Unknown [id number] 2.16.840.1.846714.3.579.2.1258 1987 Unknown [id number] 2.16.840.1.950577.3.579.2.1258 1987 Unknown [id number] 2.16.840.1.355937.3.579.2.1258 1987 Unknown [id number] 2.16.840.1.418642.3.579.2.1258 1987 Unknown [id number] 2.16.840.1.067901.3.579.2.1258 1987 Unknown [id number] 2.16.840.1.088328.3.579.2.1258 1987 Unknown [id number] 2.16.840.1.553487.3.579.2.1258 1987 Unknown [id number] 2.16.840.1.203473.3.579.2.1258 1987 Unknown [id number] 2.16.840.1.548979.3.579.2.1258 1987 Unknown [id number] 2.16.840.1.926522.3.579.2.1258 1987 Unknown [id number] 2.16.840.1.287307.3.579.2.1258 1987 Unknown [id number] 2.16.840.1.234184.3.579.2.1258 1987 Unknown [id number] 2.16.840.1.457602.3.579.2.1259 Unknown Regular Insurance [id number] Unknown [id number] 2.16.840.1.941363.3.579.2.531 Unknown [id number] 2.840.1.178721.3.579.2.531 Unknown [id number] 2.840.1.139253.3.579.2.531 Social History Date Type Detail Facility Start: 12-06-2017 Tobacco smoking stat [facility] Ex-smoker (finding) [facility] Start: 1985 Sex Assigned At Female F [facility] Start: 04-23-2023 Tobacco smoking stat [facility] Never smoked tobacco [facility] Start: 04-23-2023 Tobacco use and exposure Smoke less tobacco non-user [facility] Start: 12-16-2024 End: 2025 Alcoholic beverage intake Ex-drinker (finding) [facility] Start: 07-24-2023 End: 12-30-2024 History of Social function [facility] Start: 07-24-2023 End: 12-30-2024 Humiliation, Afraid, Rape, and Kick questionnaire [HARK] [facility] Within the last year , have you been afraid of your partner or ex-partner? No [facility] Do you belong to any clubs or organizations such as temple groups, unions, fraternal or athletic groups, or school groups? Yes [facility] Are you now , , , , never or living with a partner? [facility] How often to you hav e a drink containing alcohol? Monthly or less [facility] How many standard dr inks containing alcohol do you have on a typical day? 1 or 2 [facility] How often do you hav e 6 or more drinks on 1 occasion? Never [facility] How hard is it for y ou to pay for the very basics like food, housing, medical care, and heating Not hard at all [facility] Do you feel stress - tense, restless, nervous, or anxious, or unable to sleep at night because your mind is troubled all the time - these days [OSQ] To some extent [facility] (I/We) worried wheth er (my/our) food would run out before (I/we) got money to buy more. Never true [facility] Start: 07-05-2023 Alcohol Comment Caffeine intake: yes [facility] Start: 1985 Sex assigned at Not on file [facility] Start: 02-03-2025 Alcohol Comment Caffeine intak e: 1 monster daily [facility] Start: 02-05-2025 Sex Female (finding) [facility] Clinical Notes 11-14-2022 to 2025 WESLY Sellesr - 2025 10:00 AM EDTTelephone Encounter - Irma Rubin - 02/03/2025 1:53 PM ESTTelephone Encounter - Irma Rubin - 02/03/2025 1:53 PM Oneyda Martinez LPN - 02/03/2025 11:00 AM EST Note Date & Type Note Facility 2025 History of Presen t illness Narrative Reason for Appointment: Patient ID: Amanda Jones is a 40 y.o. female who presents for Left rib cage pain (Patient complains of having pain/pressure on her left side of her rib. Pain started 02/07/2025. ) Patient presents today for 1 Week Post Op Follow Up appointment. MEDICATIONS Current Outpatient Medications Medication Instructions buPROPion XL (WELLBUTRIN XL) 300 mg, Oral, Daily, Do not crush, chew, or split. buPROPion XL (WELLBUTRIN XL) 150 mg, Oral, Daily, Do not crush, chew, or split.150 mg po qd x 1 week then 300 mg poqd escitalopram (LEXAPRO) 20 mg, Oral, Daily ALLERGIES No Known Allergies PROBLEMS Active Ambulatory Problems Diagnosis Date Noted Abnormal pelvic ultrasound 04/09/2023 Adjustment disorder with mixed anxiety and depressed mood (CMS/HCC) 04/09/2023 Anorexia 04/09/2023 Contracture, left ankle 04/09/2023 Chronic fatigue syndrome 04/09/2023 Fatigue 04/09/2023 Ganglion cyst of foot 04/09/2023 Hypersomnia 04/09/2023 Kyphosis of cervical region 04/09/2023 Mixed obsessional thoughts and acts ([facility]) 04/09/2023 Moderate episode of recurrent major depressive disorder ([facility]) 04/09/2023 Obsessive-compulsive disorder ([facility]) 04/09/2023 Thickened endometrium 04/09/2023 Lesion of tonsil 04/09/2023 Tonsil stone 04/09/2023 Vitamin D deficiency 04/09/2023 Anxiety 05/06/2023 Seasonal affective disorder ([facility]) 05/06/2023 Cervical spondylosis without myelopathy 12/14/2020 Depression ([facility]) 07/25/2023 Elevated levels of transaminase & lactic acid dehydrogenase 06/05/2017 IBS (irritable bowel syndrome) 07/25/2023 Cervical pain 03/26/2024 PTSD (post-traumatic stress disorder) ([facility]) 12/17/2024 Resolved Ambulatory Problems Diagnosis Date Noted No Resolved Ambulatory Problems Past Medical History: Diagnosis Date ADHD (attention deficit hyperactivity disorder) ([facility]) Eating disorder ([facility]) History of bulimia Seasonal allergies Varicella zoster HISTORY PAST MEDICAL HISTORY SOCIAL HISTORY Past Medical History: Diagnosis Date ADHD (attention deficit hyperactivity disorder) ([facility]) Anorexia Anxiety Depression ([facility]) Eating disorder ([facility]) History of bulimia Seasonal allergies Varicella zoster Social History Tobacco Use Smoking status: Never Smokeless tobacco: Never Vaping Use Vaping status: Never Used Substance Use Topics Alcohol use: Not Currently Comment: Caffeine intake: 1 monster daily Drug use: Never FAMILY HISTORY Family History Problem Relation Name Age of Onset Hypertension Mother Mom Arthritis Mother Mom Lung cancer Father Father Diabetes Father Father Hypertension Father Father COPD Father Father Colon cancer Maternal Grandmother Colon cancer Paternal Grandfather SURGICAL HISTORY Past Surgical History: Procedure Laterality Date CHOLECYSTECTOMY 2013 DILATION AND CURETTAGE OF UTERUS 02/04/2025 D&C hysteroscopy VAGINAL DELIVERY 2009 VAGINAL DELIVERY REVIEW OF SYSTEMS Review of Systems: Review of Systems Constitutional: Negative. HENT: Negative. Eyes: Negative. Respiratory: Negative. Cardiovascular: Negative. Gastrointestinal: Negative. Genitourinary: Negative. Musculoskeletal: Negative. Skin: Negative. Neurological: Negative. All other systems reviewed and are negative. Hematological: Negative. Endocrine: Negative. Allergic/Immunologic: Negative. OBJECTIVE Objective: Physical Exam Constitutional: Appearance: Normal appearance. She is normal weight. HENT: Head: Normocephalic. Cardiovascular: Rate and Rhythm: Normal rate. Pulses: Normal pulses. Pulmonary: Effort: Pulmonary effort is normal. Breath sounds: Normal breath sounds. Abdominal: Palpations: Abdomen is soft. Musculoskeletal: General: Normal range of motion. Neurological: General: No focal deficit present. Mental Status: She is alert and oriented to person, place, and time. Psychiatric: Mood and Affect: Mood normal. Behavior: Behavior normal. Thought Content: Thought content normal. Judgment: Judgment normal. Vitals and nursing note reviewed. Vitals: Estimated body mass index is 29.91 kg/m as calculated from the following: Height as of 02/03/25: 5' 7 . Weight as of this encounter: 191 lb. BP: 110/64 Patient's last menstrual period was 01/10/2025 (exact date). ASSESSMENT & PLAN ICD-10-CM 1. Rib pain on left side R07.81 2. Urinary tract infection without hematuria, site unspecified N39.0 POCT urinalysis dipstick manually resulted Post Op Follow Up: Patient presents today for a postop follow up after having a D&C Hysteroscopy performed at [facility] with Dr. Ashley. Pathology results was reviewed with the patient in great detail and all restrictions have been lifted. Patient currently finishing flagyl for suspected bv infection. Treated for UTI recently as well, believes she finished macrobid. Ua collected and sent for culture today, pt states still having some discomfort. Er visit from [facility] on 02/02/25 reviewed with patient Follow Up: Patient is to return to the office for annual exam unless needed otherwise. Documented by WESLY Sellers on behalf of: WESLY Sellers documented in this encounter [facility] 02-03-2025 Telephone encounter Note Pt called and is inquiring if she needs to stop her other meds while taking the antibiotic. Please call her to advise. Ty [facility] 02-03-2025 Miscellaneous Notes Pt called and is inquiring if she needs to stop her other meds while taking the antibiotic. Please call her to advise. Ty documented in this encounter [facility] 02-03-2025 History of Presen t illness Narrative Reason for Appointment: Patient ID: Amanda Jones is a 39 y.o. female who presents for Fibroids Patient presents today for Acute Visit., Consult appointment., and Pre Op appointment. Patient is scheduled to undergo Da Gucci assisted Diagnostic Laparoscopy, possible RUBEN, possible FOE, possible BSO and D&C Hysteroscopy, possible Myosure on 02/04/[address] Ashley at [facility]. MEDICATIONS Current Outpatient Medications Medication Instructions buPROPion XL (WELLBUTRIN XL) 300 mg, Oral, Daily, Do not crush, chew, or split. buPROPion XL (WELLBUTRIN XL) 150 mg, Oral, Daily, Do not crush, chew, or split.150 mg po qd x 1 week then 300 mg poqd cephalexin (KEFTAB) 500 mg escitalopram (LEXAPRO) 20 mg, Oral, Daily metroNIDAZOLE (FLAGYL) 500 mg nitrofurantoin (macrocrystal-monohydrate) (MACROBID) 100 mg, Oral, 2 times daily predniSONE (DELTASONE) 20 mg, Oral, 2 times daily ALLERGIES No Known Allergies PROBLEMS Active Ambulatory Problems Diagnosis Date Noted Abnormal pelvic ultrasound 04/09/2023 Adjustment disorder with mixed anxiety and depressed mood ([facility]/HCC) 04/09/2023 Anorexia 04/09/2023 Contracture, left ankle 04/09/2023 Chronic fatigue syndrome 04/09/2023 Fatigue 04/09/2023 Ganglion cyst of foot 04/09/2023 Hypersomnia 04/09/2023 Kyphosis of cervical region 04/09/2023 Mixed obsessional thoughts and acts (CMS/HCC) 04/09/2023 Moderate episode of recurrent major depressive disorder (CMS/HCC) 04/09/2023 Obsessive-compulsive disorder (CMS/HCC) 04/09/2023 Thickened endometrium 04/09/2023 Lesion of tonsil 04/09/2023 Tonsil stone 04/09/2023 Vitamin D deficiency 04/09/2023 Anxiety 05/06/2023 Seasonal affective disorder ([facility]) 05/06/2023 Cervical spondylosis without myelopathy 12/14/2020 Depression ([facility]) 07/25/2023 Elevated levels of transaminase & lactic acid dehydrogenase 06/05/2017 IBS (irritable bowel syndrome) 07/25/2023 Cervical pain 03/26/2024 PTSD (post-traumatic stress disorder) ([facility]) 12/17/2024 Resolved Ambulatory Problems Diagnosis Date Noted No Resolved Ambulatory Problems Past Medical History: Diagnosis Date ADHD (attention deficit hyperactivity disorder) ([facility]) Eating disorder ([facility]) History of bulimia Seasonal allergies Varicella zoster HISTORY PAST MEDICAL HISTORY SOCIAL HISTORY Past Medical History: Diagnosis Date ADHD (attention deficit hyperactivity disorder) ([facility]) Anorexia Anxiety Depression ([facility]) Eating disorder ([facility]) History of bulimia Seasonal allergies Varicella zoster Social History Tobacco Use Smoking status: Never Smokeless tobacco: Never Vaping Use Vaping status: Never Used Substance Use Topics Alcohol use: Not Currently Comment: Caffeine intake: 1 monster daily Drug use: Never FAMILY HISTORY Family History Problem Relation Name Age of Onset Hypertension Mother Mom Arthritis Mother Mom Lung cancer Father Father Diabetes Father Father Hypertension Father Father COPD Father Father Colon cancer Maternal Grandmother Colon cancer Paternal Grandfather SURGICAL HISTORY Past Surgical History: Procedure Laterality Date CHOLECYSTECTOMY 2012 VAGINAL DELIVERY 2009 VAGINAL DELIVERY REVIEW OF SYSTEMS Review of Systems: Review of Systems Constitutional: Negative. HENT: Negative. Eyes: Negative. Respiratory: Negative. Cardiovascular: Negative. Gastrointestinal: Negative. Genitourinary: Positive for pelvic pain. Musculoskeletal: Negative. Skin: Negative. Neurological: Negative. All other systems reviewed and are negative. Hematological: Negative. Endocrine: Negative. Allergic/Immunologic: Negative. OBJECTIVE Objective: Physical Exam Constitutional: Appearance: Normal appearance. She is well-developed. Cardiovascular: Rate and Rhythm: Normal rate and regular rhythm. Pulmonary: Effort: Pulmonary effort is normal. Breath sounds: Normal breath sounds. Abdominal: General: Bowel sounds are normal. There is no distension. Palpations: Abdomen is soft. Tenderness: There is no abdominal tenderness. There is no guarding or rebound. Musculoskeletal: General: No swelling. Normal range of motion. Right lower leg: No edema. Left lower leg: No edema. Neurological: Mental Status: She is alert and oriented to person, place, and time. Skin: General: Skin is warm and dry. Psychiatric: Mood and Affect: Mood normal. Behavior: Behavior normal. Vitals and nursing note reviewed. Exam conducted with a senior ui developer present. Vitals: Estimated body mass index is 30.7 kg/m as calculated from the following: Height as of an earlier encounter on 02/03/25: 5' 7 . Weight as of this encounter: 196 lb. BP: 120/70 Patient's last menstrual period was 01/10/2025 (exact date). ASSESSMENT & PLAN ICD-10-CM 1. Fibroid D21.9 2. DUB (dysfunctional uterine bleeding) N93.8 3. Pelvic pain in female R10.2 Pt presents has complaints of heavy irregular bleeding, a uterine fibroid and pelvic pain that comes and goes. Discussed surgical management pt desires at this time. Pt to undergo D&C hysteroscopy with poss myosure and dx lap with poss RUBEN poss FOE. Discussed future hysterectomy. Pt to return for preop exam. Pre Op: Patient is doing well but has complaints of AUB, pelvic pain and fibroid seen on ultrasound. I have discussed conservative management vs. surgical management with the patient in detail and patient desires surgical management at this time. Patient will undergo Da Gucci assisted Diagnostic Laparoscopy, possible RUBEN, possible FOE, possible BSO and D&C Hysteroscopy, possible Myosure on 02/04/25. Surgical consents were signed, mmc was reviewed, and patient is to proceed to [facility] OR. Follow Up: Patient is to follow up between 1-2 weeks post operative to assess proper healing and recovery from procedure. Documented by Marylu Martinez LPN on behalf of: Rik Ashley DO documented in this encounter [facility] 02-03-2025 History of Presen t illness Narrative Images from the original note were not included. Amanda Jones is a 39 y.o. female presents with chief complaint of Rash (All over body except legs) HPI: HPI History of Present Illness The patient presents for evaluation of a rash, urinary tract infection, and anxiety and depression. She reports a generalized pruritic and burning rash that has rendered her skin hypersensitive, which started yesterday morning. The rash, initially thought to be hives, is present everywhere except her legs. She has been taking Benadryl but continues to experience discomfort and mild burning. She has not previously taken Zyrtec. She also reports facial swelling, soreness, sensitivity, and itching. The rash began prior to the initiation of antibiotics. She has not experienced any fevers or chills but reported feeling unwell last night with symptoms including headache, nausea, fatigue, and loss of appetite. She suspects these symptoms may be due to her medication regimen without adequate food intake. She also reports leg weakness and shakiness. She sought emergency care on Saturday night due to suspected UTI, a condition she has frequently experienced since her youth. Despite being informed that her urine test was negative, she returned to the ER the following day due to persistent discomfort. A CT scan and blood work revealed gas, for which she was prescribed laxatives and analgesics. She attempted self-management with [id number] medications, Epsom salt baths, and topical numbing agents, which allowed her to return to work the next day. However, she subsequently developed a generalized pruritic rash. A home UTI test was positive, prompting her to contact the hospital. A repeat urine test and pelvic exam revealed severe cervical inflammation, suggestive of an STI. She refuted this possibility, citing monogamy with her partner of 19 years and lack of sexual activity for several months. She was diagnosed with bacterial vaginosis and prescribed two antibiotics. She continues to experience mild burning and discomfort. Prior to these events, she had a heavy menstrual period on 01/13/2024, followed by intermittent heavy bleeding two weeks later. She also reported significant vaginal discharge with an unpleasant odor. She underwent testing for gonorrhea, chlamydia, and bacterial vaginosis. She has a history of fibroids and is under the care of Dr. Ashley, with whom she has a consultation today regarding a potential hysterectomy. She had a normal pelvic exam and ultrasound in early January 2024. She has anxiety and depression too. It was so bad that she could not go to work, did not want to be around her kids, and did not want to be around her . MEDICATIONS Current: Benadryl Flowsheet Row Office Visit from 02/03/2025 in [facility] with Ying Shelton NP Hospital Information ED, Hospital or Senior Care Facility Discharge? ED Diagnosis uti, Cervicitis Discharge Date 02/02/25 Discharged To: Home Setting Discharge Hospital [facility] Engagement Medications Discharge medications reviewed and reconciled from hospital? Yes Is the patient having any side effects they believe may be caused by any medication additions or changes? No Does the patient have all medications ordered at discharge? Yes Is the patient taking all medications as directed (includes completed medication regime)? Yes Appointments Does the patient have a primary care provider? Yes Does the patient have any upcoming specialty appointments? Not applicable Self Management Patient Teaching Does the patient have access to their discharge instructions? Yes What is the patient's perception of their health status since discharge? Same Wrap Up Patient is here for ER follow up. She had went 01/31, 02/01 and 02/02. Per patient she believed she had UTI, on 02/02 she tested positive for UTI, they sent her urine for culture no results yet. She was also told she had and inflamed cervex. She was prescribed antibiotics and she took her first does of them yesterday at ED. She continues with rash/blistering all over her body and did notice some discomfort/burning in her vagina. She did say they did CT of the cervix. She has a follow up appointment with Dr. Ashley today. SUBJECTIVE: MEDICATIONS: Current Outpatient Medications Medication Instructions buPROPion XL (WELLBUTRIN XL) 300 mg, Oral, Daily, Do not crush, chew, or split. buPROPion XL (WELLBUTRIN XL) 150 mg, Oral, Daily, Do not crush, chew, or split.150 mg po qd x 1 week then 300 mg poqd escitalopram (LEXAPRO) 20 mg, Oral, Daily REVIEW OF SYMPTOMS: Review of Systems Constitutional: Positive for chills and fatigue. Negative for fever. HENT: Negative. Respiratory: Negative. Cardiovascular: Negative for chest pain. Gastrointestinal: Negative for abdominal distention and abdominal pain. Genitourinary: Positive for decreased urine volume, dysuria, frequency and urgency. Negative for flank pain and pelvic pain. Skin: Positive for rash. OBJECTIVE: Visit Vitals BP 118/72 (BP Location: Left arm, Patient Position: Sitting, BP Cuff Size: Large adult) Pulse 104 Ht 5' 7 Wt 194 lb 12.8 oz LMP 01/10/2025 (Exact Date) SpO2 98% BMI 30.51 kg/m OB Status Having periods Smoking Status Never BSA 2.04 m Physical Exam Vitals reviewed. Constitutional: Appearance: Normal appearance. HENT: Head: Normocephalic. Cardiovascular: Rate and Rhythm: Normal rate. Pulmonary: Effort: Pulmonary effort is normal. Breath sounds: Normal breath sounds. Abdominal: General: Bowel sounds are normal. There is no distension. Palpations: Abdomen is soft. Tenderness: There is no abdominal tenderness. There is no right CVA tenderness or left CVA tenderness. Musculoskeletal: Cervical back: Normal range of motion. Skin: General: Skin is warm and dry. Findings: Erythema and rash present. Rash is urticarial. Comments: erythematous, flat, papular rash to torso. Pruritic to stomach, lower back and neck. Face with macular papular erythematous slightly swollen rash Neurological: General: No focal deficit present. Mental Status: She is alert and oriented to person, place, and time. Psychiatric: Mood and Affect: Mood normal. Behavior: Behavior normal. Thought Content: Thought content normal. ASSESSMENT AND PLAN: Assessment/Plan Diagnoses and all orders for this visit: Acute cystitis without hematuria - nitrofurantoin, macrocrystal-monohydrate, (Macrobid) 100 MG capsule; Take 1 capsule (100 mg) by mouth in the morning and 1 capsule (100 mg) before bedtime. Do all this for 7 days. -stop keflex, concern for allergic reaction. Switch to macrobid. Push fluids Allergic reaction, initial encounter - predniSONE (Deltasone) 20 MG tablet; Take 1 tablet (20 mg) by mouth in the morning and 1 tablet (20 mg) before bedtime. Do all this for 5 days -Initiate steroids. Inflammation of cervix -Follow-up with Dr. Ashley today as scheduled, plan to discuss recent UTI and cervical inflammation. documented in this encounter [facility] 02-02-2025 Note Education Materials Obstetrics and Gynecology Cervicitis Cervicitis is inflammation of the cervix. The cervix is the part of the uterus that opens up to the vagina. Sudden (acute) cervicitis may be caused by an infection. Long-term (chronic) cervicitis may be caused by being exposed to something that irritates the cervix. What are the causes? Acute cervicitis may be caused by: ? A sexually transmitted infection (STI), such as gonorrhea, chlamydia, or genital herpes. ? An overgrowth of bacteria in the vagina (bacterial vaginosis). ? A germ, such as a bacteria, virus, or other germ. Sometimes, the type of germ is not known. Chronic cervicitis may be caused by: ? Objects, such as tampons or diaphragms, that are put in the vagina and left for too long. ? An irritation or allergy to something that is put in the vagina. ? An injury to the cervix caused by a medical procedure or radiation therapy. What increases the risk? The following factors may make you more likely to develop acute cervicitis: ? Unprotected sex. ? Sex with many partners. The following factors may make you more likely to develop chronic cervicitis: ? Using douches. ? An allergy to latex condoms. ? Using creams in the vagina that kill sperm. What are the signs or symptoms? Symptoms of this condition include: ? Discharge from the vagina that smells bad or is law, white, or yellow. ? Pain or itching around the vagina. ? Pain in the lower stomach or lower back, often during or after sex. ? Pain during peeing (urination). ? Peeing often. ? Bleeding from the vagina that is not normal, including: ? Between periods. ? After sex. ? After menopause. In some cases, there are no symptoms. How is this diagnosed? This condition may be diagnosed with: ? A pelvic exam. Your health care provider will examine whether the cervix has an unusual discharge or bleeds easily when touched with a swab. ? A test in which vaginal discharge is examined under a microscope to check for signs of infection. ? A swab test of the cells of the cervix. For this test, sample cells from the cervix are collected on a swab and checked under a microscope for signs of infection. ? Urine tests. Swabs of vaginal discharge or cells of the cervix may be sent to a lab for more evaluation. How is this treated? Treatment for cervicitis depends on what is causing the condition. Treatment may include: ? Antibiotic medicines. These are used to treat certain infections, including STIs like gonorrhea or chlamydia. If you are taking these medicines to treat an STI, your sex partner may also need to take them. ? Antiviral medicines. These are used to treat herpes simplex virus. Your sex partner may also need to take these medicines. ? All sex partners in the past 60 days should be seen by a provider. ? Stopping the use of items that cause irritation, such as tampons, latex condoms, douches, or contraceptive creams. Follow these instructions at home: Medicines ? Take xbls-wdn-dtnhhdo and prescription medicines only as told by your provider. ? If you were prescribed antibiotics, take them as told by your provider. Do not stop using the antibiotic even if you start to feel better. General instructions ? Do not have sex until your provider says it is okay. ? When your provider says it is okay to have sex: ? Use a condom every time you have sex. ? Limit the number of sex partners. Contact a health care provider if: ? Your symptoms come back or get worse after treatment. ? You have chills or a fever. ? You feel very tired. ? Your back or abdomen hurts. ? You have nausea, vomiting, or diarrhea. Get help right away if: ? You have severe pain in your abdomen and medicine does not help it. ? You cannot pee. This information is not intended to replace advice given to you by your health care provider. Make sure you discuss any questions you have with your health care provider. Document Revised: 08/26/2023 Document Reviewed: 08/26/2023 [employer] Patient Education ? 2023 [employer]. Urinary Tract Infection, Adult A urinary tract infection (UTI) is an infection of any part of the urinary tract. The urinary tract includes: ? The kidneys. ? The ureters. ? The bladder. ? The urethra. These organs make, store, and get rid of pee (urine) in the body. What are the causes? This infection is caused by germs (bacteria) in your genital area. These germs grow and cause swelling (inflammation) of your urinary tract. What increases the risk? The following factors may make you more likely to develop this condition: ? Using a small, thin tube (catheter) to drain pee. ? Not being able to control when you pee or poop (incontinence). ? Being female. If you are female, these things can increase the risk: ? Using these methods to prevent : ? A medicine that kills sperm (spermicide). ? A (more content not included)... [facility] 02-01-2025 Note Education Materials Gastroenterology Abdominal Pain, Adult Many things can cause belly (abdominal) pain. In most cases, belly pain is not a serious problem and can be watched and treated at home. But in some cases, it can be serious. Your doctor will try to find the cause of your belly pain. Follow these instructions at home: Medicines ? Take qruu-koa-jpfohfu and prescription medicines only as told by your doctor. ? Do not take medicines that help you poop (laxatives) unless told by your doctor. General instructions ? Watch your belly pain for any changes. Tell your doctor if the pain gets worse. ? Drink enough fluid to keep your pee (urine) pale yellow. Contact a doctor if: ? Your belly pain changes or gets worse. ? You have very bad cramping or bloating in your belly. ? You vomit. ? Your pain gets worse with meals, after eating, or with certain foods. ? You have trouble pooping or have watery poop for more than 2?3 days. ? You are not hungry, or you lose weight without trying. ? You have signs of not getting enough fluid or water (dehydration). These may include: ? Dark pee, very little pee, or no pee. ? Cracked lips or dry mouth. ? Feeling sleepy or weak. ? You have pain when you pee or poop. ? Your belly pain wakes you up at night. ? You have blood in your pee. ? You have a fever. Get help right away if: ? You cannot stop vomiting. ? Your pain is only in one part of your belly, like on the right side. ? You have bloody or black poop, or poop that looks like tar. ? You have trouble breathing. ? You have chest pain. These symptoms may be an emergency. Get help right away. Call 911. ? Do not wait to see if the symptoms will go away. ? Do not drive yourself to the hospital. This information is not intended to replace advice given to you by your health care provider. Make sure you discuss any questions you have with your health care provider. Document Revised: 09/04/2023 Document Reviewed: 09/04/2023 [employer] Patient Education ? 2023 [employer]. [facility] 02-01-2025 Telephone encounter Note Pt called in and states she went to the ER for discomfort in the pelvic area, and the constant feeling of an orgasm. They could not tell her what is wrong other than telling her that her uterus is enlarged and told her to follow up with her block setter gypsum. I asked her if she wanted to schedule an appointment and she declined. [facility] 02-01-2025 Miscellaneous Notes Pt called in and states she went to the ER for discomfort in the pelvic area, and the constant feeling of an orgasm. They could not tell her what is wrong other than telling her that her uterus is enlarged and told her to follow up with her block setter gypsum. I asked her if she wanted to schedule an appointment and she declined. documented in this encounter [facility] 01-31-2025 Note Education Materials Obstetrics and Gynecology Abnormal Uterine Bleeding Follow-up with [facility] for [facility] hysterectomy as scheduled. Return to the emerged part for any worsening symptoms. Abnormal uterine bleeding is unusual bleeding from the uterus. It includes bleeding after sex, or bleeding or spotting between menstrual periods. It may also include bleeding that is heavier than normal, menstrual periods that last longer than usual, or bleeding that occurs after menopause. Abnormal uterine bleeding can affect teenagers, women in their reproductive years, women, and women who have reached menopause. Common causes of abnormal uterine bleeding include: ? . ? Abnormal growths within the lining of the uterus (polyps). ? Benign tumors or growths in the uterus (fibroids). These are not cancer. ? Infection. ? Cancer. ? Too much or too little of some hormones in the body (hormonal imbalances). Any type of abnormal bleeding should be checked by a health care provider. Many cases are minor and simple to treat, but others may be more serious. Treatment will depend on the cause of the bleeding and how severe it is. Follow these instructions at home: Medicines ? Take nhkd-wfg-zlclwxi and prescription medicines only as told by your health care provider. ? Ask your health care provider about: ? Taking medicines such as aspirin and ibuprofen. These medicines can thin your blood. Do not take these medicines unless your health care provider tells you to take them. ? Taking fjld-yhx-qsqnvxd medicines, vitamins, herbs, and supplements. ? If you were prescribed iron pills, take them as told by your health care provider. Iron pills help to replace iron that your body loses because of this condition. Managing constipation In cases of severe bleeding, you may be asked to increase your iron intake to treat anemia. Doing this may cause constipation. To prevent or treat constipation, you may need to: ? Drink enough fluid to keep your urine pale yellow. ? Take itqj-dhs-njsgrzn or prescription medicines. ? Eat foods that are high in fiber, such as beans, whole grains, and fresh fruits and vegetables. ? Limit foods that are high in fat and processed sugars, such as fried or sweet foods. Activity Alter your activity to decrease bleeding if you need to change your sanitary pad more than one time every 2 hours: ? Lie in bed with your feet raised (elevated). ? Place a cold pack on your lower abdomen. ? Rest as much as possible until the bleeding stops or slows down. General instructions ? Do not use tampons, douche, or have sex until your health care provider says these things are okay. ? Change your sanitary pads often. ? Get regular exams. These include pelvic exams and cervical cancer screenings. ? It is up to you to get the results of any tests that are done. Ask your health care provider, or the department that is doing the tests, when your results will be ready. ? Monitor your condition for any changes. For 2 months, write down: ? When your menstrual period starts. ? When your menstrual period ends. ? When any abnormal vaginal bleeding occurs. ? What problems you notice. ? Keep all follow-up visits. This is important. Contact a health care provider if: ? You have bleeding that lasts for more than one week. ? You feel dizzy at times. ? You feel nauseous or you vomit. ? You feel light-headed or weak. ? You notice any other changes that show that your condition is getting worse. Get help right away if: ? You faint. ? You have bleeding that soaks through a sanitary pad every hour. ? You have pain in the abdomen. ? You have a fever or chills. ? You become sweaty or weak. ? You pass large blood clots from your vagina. These symptoms may represent a serious problem that is an emergency. Do not wait to see if the symptoms will go away. Get medical help right away. Call your local emergency services (911 in the [place] Do not drive yourself to the hospital. Summary ? Abnormal uterine bleeding is unusual bleeding from the uterus. ? Any type of abnormal bleeding should be checked by a health care provider. Many cases are minor and simple to treat, but others may be more serious. ? Treatment will depend on the cause of the bleeding and how severe it is. ? Get help right away if you faint, you have bleeding that soaks through a sanitary pad every hour, or you pass large blood clots from your vagina. This information is not intended to replace advice given to you by your health care provider. Make sure you discuss any questions you have with your health care provider. Document Revised: 03/20/2022 Document Reviewed: 03/20/2022 [employer] Patient Education ? 2023 [employer]. [facility] 01-28-2025 Telephone encounter Note Amanda called - she said she has been in for issues w her period. She wasn't due to start til around February 11, but woke up this morning bleeding pretty heavy . She's asking for a call when you get a moment please . Haroon Patel [phone] [facility] 01-28-2025 Miscellaneous Notes Amanda called - she said she has been in for issues w her period. She wasn't due to start til around February 11, but woke up this morning bleeding pretty heavy . She's asking for a call when you get a moment please . Haroon Patel [phone] documented in this encounter [facility] 01-20-2025 History of Presen t illness Narrative Reason For Appointment: Treatment planning Therapy Goals: Type of therapy: Trauma-based therapy to address PTSD-type symptoms GOAL: Eliminate or reduce the negative impact trauma related symptoms have on social, occupational, and family functioning OBJECTIVES: 1. Participate and complete activities in the Trauma Treatment Toolbox 2. Learn and implement calming skills 3. Participate in Cognitive Therapy to help identify, challenge, and replace negative, biased, and self-defeating thoughts resulting from the trauma Mental Health Status Exam: Appearance: well developed, well nourished Affect: appropriate, full range Behavior: appropriate Judgement: Appropriate to age Knowledge: WNL Orientation: person, place, time, situation Speech: clear Mood: happy Insight: good Suicide/Homicide Risk: denied any thoughts/plans Notes: Patient arrived in a happy mood with a congruent affect. She was alert and oriented X 4. Patient indicated that she had a medication change which she feels is the reason she can say she is happy. 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 Discussed the five main areas and 2 connections generally effected by trauma. Provided her with the Chapter 1 handouts to read and note which areas of the brain have been most effected in her. Patient reported the most effected part of her brain were her Amygdala (Fear Center), Prefrontal Cortex (Thinking Center) and Cingulate Cortex (Self-regulation Center). Discussed Bottoms-Up, Top-Down, and Horizontal (EMDR) approaches to brain change. Patient understood that because her Amygdala was involved, treatment would start with Bottom-Up approaches. 9:00-9:48 pm [id number] documented in this encounter [facility] 01-06-2025 History of Presen t illness Narrative Images from the original note were not included. Amanda Jones is a 39 y.o. female presents with chief complaint of Annual Exam and Cough HPI: HPI If eats before taking wellbutrin feels well Energy was better until she got sick Starts 300 mg of wellbutrin in 1 week History of Present Illness The patient presents for evaluation of a sore throat. She reports that her symptoms began on Saturday, with no significant improvement noted as of today. She is experiencing persistent fatigue and a sore throat, which has been accompanied by the onset of a cough since this morning. Additionally, she experienced severe body aches yesterday, although these have lessened in intensity today. Her sleep was notably disrupted yesterday. She has been in contact with sick individuals at her workplace and her daughter is currently experiencing similar symptoms. Practice s healthy eating and exercises habits. No hx mammogram SUBJECTIVE: MEDICATIONS: Current Outpatient Medications Medication Instructions buPROPion XL (WELLBUTRIN XL) 300 mg, Oral, Daily, Do not crush, chew, or split. buPROPion XL (WELLBUTRIN XL) 150 mg, Oral, Daily, Do not crush, chew, or split.150 mg po qd x 1 week then 300 mg poqd escitalopram (LEXAPRO) 20 mg, Oral, Daily ALLERGIES: No Known Allergies SURGICAL HISTORY: Past Surgical History: Procedure Laterality Date CHOLECYSTECTOMY 2012 VAGINAL DELIVERY 2009 VAGINAL DELIVERY FAMILY HISTORY: Family History Problem Relation Name Age of Onset Hypertension Mother Mom Arthritis Mother Mom Lung cancer Father Father Diabetes Father Father Hypertension Father Father COPD Father Father Colon cancer Maternal Grandmother Colon cancer Paternal Grandfather SOCIAL HISTORY: Social History Tobacco Use Smoking status: Never Smokeless tobacco: Never Substance Use Topics Alcohol use: Not Currently Comment: Caffeine intake: yes Drug use: Never Depression: At risk (12/30/2024) PHQ-2 PHQ-2 Score: 4 REVIEW OF SYMPTOMS: Review of Systems Respiratory: Negative. Cardiovascular: Negative. OBJECTIVE: Visit Vitals BP 122/76 (BP Location: Left arm, Patient Position: Sitting, BP Cuff Size: Large adult) Pulse 95 Resp 18 Ht 5' 7 Wt 196 lb 6.4 oz LMP 12/12/2024 (Exact Date) SpO2 99% BMI 30.76 kg/m OB Status Having periods Smoking Status Never BSA 2.05 m Physical Exam Constitutional: Appearance: Normal appearance. She is normal weight. HENT: Head: Normocephalic and atraumatic. Right Ear: Tympanic membrane and ear canal normal. Left Ear: Tympanic membrane and ear canal normal. Nose: Congestion and rhinorrhea present. Mouth/Throat: Mouth: Mucous membranes are moist. Pharynx: Oropharyngeal exudate present. Eyes: Pupils: Pupils are equal, round, and reactive to light. Cardiovascular: Rate and Rhythm: Normal rate and regular rhythm. Heart sounds: No murmur heard. Pulmonary: Effort: Pulmonary effort is normal. Breath sounds: Normal breath sounds. No wheezing or rhonchi. Musculoskeletal: General: No swelling. Cervical back: Normal range of motion and neck supple. Right lower leg: No edema. Left lower leg: No edema. Lymphadenopathy: Cervical: No cervical adenopathy. Skin: General: Skin is warm and dry. Findings: No rash. Neurological: Mental Status: She is oriented to person, place, and time. Sensory: No sensory deficit. Gait: Gait normal. Psychiatric: Mood and Affect: Mood normal. Thought Content: Thought content normal. Judgment: Judgment normal. ASSESSMENT AND PLAN: Assessment/Plan Problem List Items Addressed This Visit None Visit Diagnoses Routine general medical examination at a health care facility - Primary Acute cough Suspect viral process Relevant Orders STATUS COVID-19/FLU (Completed) Screening mammogram for breast cancer Relevant Orders Bilateral screening mammogram with tomosynthesis As part of your wellness visit , the medical team reviewed your chart and chronic problems and treatment. Your information regarding healthy diet, activity, immunizations, depression screening, cancer screens and risk factors for disease were reviewed or addressed documented in this encounter [facility] 12-31-2024 Telephone encounter Note Patient was seen yesterday and was prescribed new medication. She took 1 dose of the new medication this morning and she is feeling spaced out and just not right. Please advise pt. [phone]. Thank you. [facility] 12-31-2024 Miscellaneous Notes Patient was seen yesterday and was prescribed new medication. She took 1 dose of the new medication this morning and she is feeling spaced out and just not right. Please advise pt. [phone]. Thank you. documented in this encounter [facility] 12-30-2024 History of Presen t illness Narrative Images from the original note were not included. Amanda Jones is a 39 y.o. female presents with chief complaint of Anxiety and Depression HPI: Presents to the office today for anxiety and depression. She is on Paxil 40mg daily, has been on that for a while, but feels like the past year it has not been working well for her. Reports she is sleeping more, does not want to get out of bed, feels more anxious and depressed around her periods. Reports last month around the time her period was about to start she had suicidal thoughts of taking pills in her house but her kids were around and kept her from taking the pills. Denies any suicidal thoughts at this visit. Reports having decreased interest in activities she normally does. Patient is here since she feels like the medication paroxetine is not working. She has noticed this not being effective for about a year now. She is also having nausea and headaches that started 2 weeks ago. She does not believe she is since her had a vasectomy. Over the past 2 weeks, how often have you been bothered by any of the following problems? Little interest or pleasure in doing things: More than half the days Feeling down, depressed, or hopeless: More than half the days Trouble falling or staying asleep, or sleeping too much: Nearly every day Feeling tired or having little energy: Nearly every day Poor appetite or overeating: More than half the days Feeling bad about yourself - or that you are a failure or have let yourself or your family down: More than half the days Trouble concentrating on things, such as reading the newspaper or watching television: More than half the days Moving or speaking so slowly that other people could have noticed? Or the opposite - being so fidgety or restless that you have been moving around a lot more than usual.: Not at all Thoughts that you would be better off or hurting yourself in some way: Several days Patient Health Questionnaire-9 Score: 17 Over the last 2 weeks, how often have you been bothered by any of the following problems? Feeling nervous, anxious, or on edge: More than half the days Not being able to stop or control worrying: More than half the days Worrying too much about different things: More than half the days Trouble relaxing: Nearly every day Being so restless that it is hard to sit still: Nearly every day Becoming easily annoyed or irritable: Nearly every day Feeling afraid as if something awful might happen: More than half the days MARIJA-7 Total Score: 17 SUBJECTIVE: MEDICATIONS: ALLERGIES Current Outpatient Medications Medication Instructions PARoxetine (PAXIL) 40 mg, Oral, Every morning, 40 mg 1 (one) time each day at the same time. No Known Allergies PAST MEDICAL HISTORY: SOCIAL HISTORY SURGICAL HISTORY: Past Medical History: Diagnosis Date ADHD (attention deficit hyperactivity disorder) (CMS/HCC) Anorexia Anxiety Depression (CMS/HCC) Eating disorder (CMS/HCC) History of bulimia Seasonal allergies Varicella zoster Social History Tobacco Use Smoking status: Never Smokeless tobacco: Never Substance Use Topics Alcohol use: Not Currently Comment: Caffeine intake: yes Drug use: Never Past Surgical History: Procedure Laterality Date CHOLECYSTECTOMY 2013 VAGINAL DELIVERY 2010 VAGINAL DELIVERY REVIEW OF SYMPTOMS: Review of Systems Respiratory: Negative. Cardiovascular: Negative. Neurological: Negative. Psychiatric/Behavioral: Depression, anxiety All other systems reviewed and are negative. OBJECTIVE: Vitals: 12/30/24 1001 BP: 118/80 Pulse: 101 Temp: 97.1 F SpO2: 98% Physical Exam Vitals and nursing note reviewed. Constitutional: Appearance: Normal appearance. HENT: Head: Normocephalic and atraumatic. Cardiovascular: Rate and Rhythm: Normal rate and regular rhythm. Heart sounds: Normal heart sounds. Pulmonary: Effort: Pulmonary effort is normal. Breath sounds: Normal breath sounds. Neurological: General: No focal deficit present. Mental Status: She is alert and oriented to person, place, and time. Psychiatric: Attention and Perception: Attention normal. Mood and Affect: Mood is depressed. Speech: Speech normal. Behavior: Behavior normal. Thought Content: Thought content normal. ASSESSMENT AND PLAN: Assessment/Plan Problem List Items Addressed This Visit Other Anxiety Relevant Medications escitalopram (Lexapro) 20 MG tablet buPROPion XL (Wellbutrin XL) 300 MG 24 hr tablet buPROPion XL (Wellbutrin XL) 150 MG 24 hr tablet Depression (CMS/HCC) - Primary Relevant Medications escitalopram (Lexapro) 20 MG tablet buPROPion XL (Wellbutrin XL) 300 MG 24 hr tablet buPROPion XL (Wellbutrin XL) 150 MG 24 hr tablet Patient is to stop taking Paxil and start taking Lexapro 20mg daily and Wellbutrin 150mg daily for 7 days then take Wellbutrin 300mg daily after that. Follow up in 1 week documented in this encounter [facility] 12-29-2024 Note Patient Education Ma terials Follows: [facility] 12-16-2024 History of Presen t illness Narrative PROBLEM VISIT Amanda Jones is 39 y.o. a patient of [facility] Here for Last pap: 11/06/23 Last mammogram: n/a Patient's last menstrual period was 12/12/2024 (exact date). History: Past Medical History: Diagnosis Date ADHD (attention deficit hyperactivity disorder) (CMS/HCC) Anorexia Anxiety Depression (CMS/HCC) Eating disorder (CMS/HCC) History of bulimia Seasonal allergies Varicella zoster Past Surgical History: Procedure Laterality Date CHOLECYSTECTOMY 2012 VAGINAL DELIVERY 2009 VAGINAL DELIVERY Family History Problem Relation Name Age of Onset Hypertension Mother Mom Arthritis Mother Mom Lung cancer Father Father Diabetes Father Father Hypertension Father Father COPD Father Father Colon cancer Maternal Grandmother Colon cancer Paternal Grandfather @[email or web address]@ Allergies: No Known Allergies Medications: Current Outpatient Medications on File Prior to Visit Medication Sig Dispense Refill PARoxetine (Paxil) 40 MG tablet Take 1 tablet (40 mg) by mouth in the morning. 40 mg 1 (one) time each day at the same time.. 90 tablet 1 [DISCONTINUED] Chaste Tree (VITEX EXTRACT PO) Take 400 mg by mouth [DISCONTINUED] omeprazole (PriLOSEC) [address] capsule Take 1 capsule (40 mg) by mouth in the morning. Take before meals. Do not crush or chew. . 30 capsule 1 No current facility-administered medications on file prior to visit. There were no vitals filed for this visit. HPI: ROS: Review of Systems Patient presents today to discuss her periods. She states she is currently on her period and started Dec 12. She does not want an exam today, only to discuss her periods, the irregularity of them and a treatment plan. Patient also states that she has suicidal ideations when her period starts. It lasts about 3 days, and she thinks of taking pills . She is currently taking Paxil 40 mg and states it used to work really well, but doesn't think it works as well now. She also states the only reason I didn't take the pills the other day was because my kids were there. Then states the next day I was fine, and I would never do that to my kids. She was in counseling here at [facility] and states that she thought it did help, and she is willing to be seen again. We did options and a plan when she feels the ideations. I did stress that she needs to reach out to someone and go to the nearest ER. I also want her to follow up with Dr Bolden, her PCP for medication evaluation and adjustment if needed. PVU and agrees with the plan of care. Today, she denies sadness, depression and no suicidal ideations. I will schedule her for TBE and pap, pelvic US and get referral to [facility] for counseling appt. Appt made for her with Dr Bolden also. Patient is pleasant, smiling and talks openly. Good historian. She also knows to call our office immediately if she needs to speak with someone or again, go to the nearest ED or urgent care. Physical exam: Physical Exam Assessment and Plan: There are no diagnoses linked to this encounter. No follow-ups on file. There are no Patient Instructions on file for this visit. Cara Laureano MA,12/16/2024 9:48 AM documented in this encounter [facility] 12-14-2024 Note Patient Education Martine terann marie Follows: Contusion A contusion is a deep bruise. This is a result of an injury that causes bleeding under the skin. Symptoms of bruising include pain, swelling, and discolored skin. The skin may turn blue, purple, or yellow. Follow these instructions at home: Managing pain, stiffness, and swelling You may use RICE. This stands for: ? Resting. ? Icing. ? Compression, or putting pressure on the injured area. ? Elevating, or raising the injured area. To follow this method, do these actions: ? Rest the injured area. ? If told, put ice on the injured area. To do this: ? Put ice in a plastic bag. ? Place a towel between your skin and the bag. ? Leave the ice on for 20 minutes, 2?3 times per day. ? If your skin turns bright red, take off the ice right away to prevent skin damage. The risk of skin damage is higher if you cannot feel pain, heat, or cold. ? If told, apply compression on the injured area using an elastic bandage. Make sure the bandage is not too tight. If the area tingles or has a loss of feeling (numbness), remove it and put it back on as told by your doctor. ? If possible, elevate the injured area above the level of your heart while you are sitting or lying down. General instructions ? Take zaio-duj-ocdomaf and prescription medicines only as told by your doctor. ? Keep all follow-up visits. Your doctor may want to see how your contusion is healing with treatment. Contact a doctor if: ? Your symptoms do not get better after several days of treatment. ? Your symptoms get worse. ? You have trouble moving the injured area. Get help right away if: ? You have very bad pain. ? You have a loss of feeling (numbness) in a hand or foot. ? Your hand or foot turns pale or cold. This information is not intended to replace advice given to you by your health care provider. Make sure you discuss any questions you have with your health care provider. Document Revised: 05/06/2023 Document Reviewed: 05/06/2023 [employer] Patient Education ? 2023 [employer]. [facility] 09-24-2024 Note Patient Education Ma terials Follows: Shoulder Sprain A shoulder sprain is a partial or complete tear in one of the tough, fiber-like tissues (ligaments) in the shoulder. The ligaments in the shoulder help to hold the shoulder in place. What are the causes? This condition may be caused by: ? A fall. ? A hit to the shoulder. ? A twist of the arm. What increases the risk? You are more likely to develop this condition if you: ? Play sports. ? Have problems with balance or coordination. What are the signs or symptoms? Symptoms of this condition include: ? Pain when moving the shoulder. ? Limited ability to move the shoulder. ? Swelling and tenderness on top of the shoulder. ? Warmth in the shoulder. ? A change in the shape of the shoulder. ? Redness or bruising on the shoulder. How is this diagnosed? This condition is diagnosed with: ? A physical exam. During the exam, you may be asked to do simple exercises with your shoulder. ? Imaging tests such as X-rays, MRI, or a CT scan. These tests can show how severe the sprain is. How is this treated? This condition may be treated with: ? Rest. ? Pain medicine. ? Ice. ? A sling or brace. This is used to keep the arm still while the shoulder is healing. ? Physical therapy or rehabilitation exercises. These help to improve the range of motion and strength of the shoulder. ? Surgery (rare). Surgery may be needed if the sprain caused a joint to become unstable. Surgery may also be needed to reduce pain. Some people may develop ongoing shoulder pain or lose some range of motion in the shoulder. However, most people do not develop long-term problems. Follow these instructions at home: If you have a removable sling or brace: ? Wear the sling or brace as told by your health care provider. Remove it only as told by your provider. ? Check the skin around the sling or brace every day. Tell your provider about any concerns. ? Loosen the sling or brace if your fingers tingle, become numb, or turn cold and blue. ? Keep the sling or brace clean. ? If the sling or brace is not waterproof: ? Do not let it get wet. ? Remove the sling or brace before taking a bath or shower, as told by your provider. Activity ? Rest your shoulder. ? Move your arm only as much as told by your provider, but move your hand and fingers often to prevent stiffness and swelling. ? Return to your normal activities as told by your provider. Ask your provider what activities are safe for you. ? Ask your provider when it is safe for you to drive if you have a sling or brace on your shoulder. ? If you were shown how to do any exercises, do them as told by your provider. General instructions ? If told, put ice on the affected area. ? If you have a removable sling or brace, remove it as told by your provider. ? Put ice in a plastic bag. ? Place a towel between your skin and the bag. ? Leave the ice on for 20 minutes, 2?3 times a day. ? If your skin turns bright red, remove the ice right away to prevent skin damage. The risk of damage is higher if you cannot feel pain, heat, or cold. ? Take kdvu-gen-msvuvky and prescription medicines only as told by your provider. ? Do not use any products that contain nicotine or tobacco. These products include cigarettes, chewing tobacco, and vaping devices, such as e-cigarettes. These can delay healing. If you need help quitting, ask your provider. ? Keep all follow-up visits. Your provider will monitor your injury and activity level. Contact a health care provider if: ? Your pain gets worse. ? Your pain is not relieved with medicines. ? You have increased redness or swelling. ? You have a fever. Get help right away if: ? You cannot move your arm or shoulder. ? You develop severe numbness or tingling in your arm, hand, or fingers. ? Your arm, hand, or fingers feel cold and turn blue, white, or law. This information is not intended to replace advice given to you by your health care provider. Make sure you discuss any questions you have with your health care provider. Document Revised: 07/03/2023 Document Reviewed: 07/03/2023 [employer] Patient Education ? 2023 [employer] Cervical Sprain A cervical sprain is also called a neck sprain. It is a stretch or tear in one or more ligaments in the neck. Ligaments are tissues that connect bones to each other. Neck sprains can be mild, bad, or very bad. A very bad sprain can cause problems with bones and other structures. Most neck sprains heal in 4?6 weeks, but this depends on how bad the injury is. What are the causes? Neck sprains may be caused by trauma, such as: ? An injury from a motor vehicle accident. ? A fall. ? The head and neck being moved front to back or side to side all of a sudden (whiplash injury). Mild neck sprains may be caused by wear and tear over time. What increases the risk? ? Some activi (more content not included)... [facility] 11-14-2022 Note HISTORY: Abnormal ul trasound, retrouterine mass PROCEDURE: Multiplanar, multisequence imaging including routine T1, T2 with and without contrast. 18 cc Prohance. FINDINGS: Normal uterine size and endometrium. Retrouterine mass seen on the recent ultrasound is visualized, etiology of which consistent with a suserosal fibroid, 3.0 x 3.5 x 3.0 cm. This is distinct from the otherwise normal follicular ovaries. Slight heterogeneous echotexture within the uterine fundus is present, which may reflect additional small intramural fibroids with partial subserosal extension. Small to moderate volume of pelvic fluid. Unremarkable bowel and skeletal structures. Normal bladder. 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 No assessment inform ation available [facility] Work Phone: Evaluation note Diagnosis Irregular periods- Primary Pelvic pain in female Unspecified symptom associated with female genital organs Other depression (CMS/HCC) [facility] Diagnosis PTSD (post-traumatic stress disorder) (CMS/HCC) Posttraumatic stress disorder Seasonal affective disorder (CMS/HCC) Other specified episodic mood disorder [facility] Diagnosis Episode of recurrent major depressive disorder, unspecified depression episode severity (CMS/HCC)- Primary Anxiety Anxiety state, unspecified [facility] Diagnosis Routine general medical examination at a health care facility- Primary Acute cough Screening mammogram for breast cancer [facility] Diagnosis PTSD (post-traumatic stress disorder) (CMS/HCC) Posttraumatic stress disorder Seasonal affective disorder (CMS/HCC) Other specified episodic mood disorder [facility] Diagnosis PTSD (post-traumatic stress disorder) (CMS/HCC) Posttraumatic stress disorder Seasonal affective disorder (CMS/HCC) Other specified episodic mood disorder Mixed obsessional thoughts and acts (CMS/HCC) [facility] Diagnosis Acute cystitis without hematuria- Primary Allergic reaction, initial encounter Inflammation of cervix [facility] Diagnosis Fibroid Leiomyoma of uterus, unspecified DUB (dysfunctional uterine bleeding) Other disorder of menstruation and other abnormal bleeding from female genital tract Pelvic pain in female Unspecified symptom associated with female genital organs [facility] Diagnosis Rib pain on left side Urinary tract infection without hematuria, site unspecified documented in this encounter [facility] Summary Purpose Family History No Family History Records FoundNo Family History Records FoundNo Family History Records FoundNo Family History Records FoundNo Family History Records Found Advance Directives No Advanced Directives Records Found Advance Directive Response Recorded Date/ Time Advance Directives No December 06, 2017 8:28pm Chief Complaint and Reason for Visit Chief Complaint R76.0 elbow shoulder and neck pain Chief Complaint Admit Date Unknown February 04, 2025 2:06 pm Additional Source Comments INFORMATION SOURCE (unrecogn ized section and content) DATE CREATED AUTHOR 05/28/2018 Bala Wilkerson [facility] DATE CREATED AUTHOR AUTHOR'S ORGANIZ ATION 01/25/2023 [facility] dical Specialist DATE CREATED AUTHOR AUTHOR'S ORGANIZ ATION 02/06/2025 [facility] DATE CREATED AUTHOR AUTHOR'S ORGANIZ ATION 02/09/2025 [facility] DATE CREATED AUTHOR AUTHOR'S ORGANIZ ATION 02/19/2025 [facility] dical Specialists EPIC Care Teams (unrecognized sec tion and content) Team Status: Active Member Role Status Dates Marylu Dale PA-C Primary Care Provider Active Team Status: Inactive Member Role Status Dates Marylu Dale PA-C Primary Care Provider Active Start: May 06, 2024 End: May 06, 2024 Isaias Stoner MD Attending Provider Active St art: May 06, 2024 End: May 06, 2024 Team Status: Active Member Role Status Dates Summer Bolden MD Primary Care Provider Active Team Status: Inactive Member Role Status Dates Summer Bolden MD Primary Care Provider Active Sta rt: June 17, 2024 End: June 17, 2024 Isaias Stoner MD Attending Provider Active St art: June 17, 2024 End: June 17, 2024 Thread Puller Relationship Specialty Start Date End Date Summer Bolden MD [address] [place] [address] PCP - General Family Medicine 04/22/23 Thread Puller Relationship Specialty Start Date End Date Summer Bolden MD [address] [place] [address] PCP - General Family Medicine 04/22/23 Thread Puller Relationship Specialty Start Date End Date Summer Bolden MD [address] [place] [address] PCP - General Family Medicine 04/22/23 Thread Puller Relationship Specialty Start Date End Date Summer Bolden MD [address] [facility] [place] [address] PCP - General Family Medicine 04/22/23 Thread Puller Relationship Specialty Start Date End Date Summer Bolden MD [address] [facility] [place] [address] PCP - General Family Medicine 04/22/23 Thread Puller Relationship Specialty Start Date End Date Summer Bolden MD [address] [facility] [place] [address] PCP - General Family Medicine 04/22/23 Thread Puller Relationship Specialty Start Date End Date Summer Bolden MD [address] [facility] [place] [address] PCP - General Family Medicine 04/22/23 Thread Puller Relationship Specialty Start Date End Date Summer Bolden MD [address] [facility] [place] [address] PCP - General Family Medicine 04/22/23 Thread Puller Relationship Specialty Start Date End Date Summer Bolden MD [address] [facility] [place] [address] PCP - General Family Medicine 04/22/23 Thread Puller Relationship Specialty Start Date End Date Summer Bolden MD [address] [facility] [place] [address] PCP - General Family Medicine 04/22/23 Thread Puller Relationship Specialty Start Date End Date Summer Bolden MD [address] [place] [address] PCP - General Family Medicine 04/22/23 Thread Puller Relationship Specialty Start Date End Date Summer Bolden MD [address] [place] [id number] PCP - General Family Medicine 04/22/23 Team Status: Inactive Member Role Status Dates Rik Ashley DO Attending Provider Active Start : February 04, 2025 End: February 04, 2025 Thread Puller Relationship Specialty Start Date End Date Summer Bolden MD [address] [place] [id number] PCP - General Family Medicine 04/22/23 James James LSW Sub Assembly Team Worker Structural Biologist 02/10/25 Goals (unrecognized section and content) Goals may be documented in a n alternate sectionGoals may be documented in an alternate sectionGoals may be documented in an alternate section Reason for Visit (unrecogniz ed section and content) Reason Comments Review of initial assessment and treatme nt plan Reason Comments Anxiety Depression Reason Comments Annual Exam Cough Reason Comments Treatment planning Reason Comments Counseling session Reason Comments Rash All over body except legs ER Follow-up Reason Comments Fibroids Reason Comments Left rib cage pain Patient complains of having pain/pressure on her left side of her rib. Pain started 02/07/2025. FOR RECORDS PERTAINING TO PATIENTS WHO ARE OR HAVE BEEN ENROLLED IN A CHEMICAL DEPENDENCY/SUBSTANCEABUSE PROGRAM, SOME INFORMATION MAY BE OMITTED. This clinical summary was aggregated from multiple sources. Caution should be exercised in using it in the provision of clinical care. This summary normalizes information from multiple sources, and as a consequence, information in this document may materially change the coding, format and clinical context of patient data. In addition, data may be omitted in some cases. CLINICAL DECISIONS SHOULD BE BASED ON THE PRIMARY CLINICAL RECORDS. [facility] [employer]. provides no warranty or guarantee of the accuracy or completeness of information in this document.
[2025-02-21 14:52] LABS: HCG Qualitative Urine* NEGATIVE (NEGATIVE); Internal Control Within Normal Limits
[2025-02-21 14:54] LABS: Bilirubin Urine NEGATIVE (NEGATIVE); Blood Urine NEGATIVE (NEGATIVE); Clarity Urine CLEAR (CLEAR); Color Urine LT. YELLOW (YELLOW); Glucose Urine UA NEGATIVE (NEGATIVE); Ketones Urine NEGATIVE (NEGATIVE); Leukocyte Esterase Urine NEGATIVE (NEGATIVE); Nitrite Urine NEGATIVE (NEGATIVE); Protein Urine NEGATIVE (NEG/TRACE); Specific Gravity Urine 1.015 (1.005-1.025); Urobilinogen Urine 0.2 EU/dL (0.2-1.0)
--- NOTE | 2025-02-21 14:56 | ED_ITS ---
HPI HPI - General Adult General Chief complaint: Urogenital-Female Stated complaint: UTI COMPLAINTS Time Seen by Provider: 02/21/25 14:25 Source: patient Mode of arrival: walk-in Limitations: no limitations History of Present Illness HPI narrative: 40-year-old female presents for dysuria and frequency. She is concerned she has UTI still. She has been on several antibiotics for UTI over the past couple weeks. Initially it appears that she was on Keflex but then she was taken off of that and put on another antibiotic as well as Flagyl by her PCP. She had a CAT scan at another hospital which she states was negative. She has had minimal thin discharge. Related Data Home Medications ?Medication ?Instructions ?Recorded ?Confirmed bupropion HCl 300 mg 24 hr tablet, 300 mg PO DAILY 02/03/25 02/04/25 extended release diphenhydramine HCl 25 mg capsule 25 mg PO Q4H PRN itching 02/03/25 02/04/25 (Benadryl) escitalopram oxalate 20 mg tablet 20 mg PO DAILY 02/03/25 02/04/25 nitrofurantoin 100 mg PO BID 02/03/25 02/04/25 monohydrate/macrocrystals 100 mg capsule prednisone 20 mg tablet 20 mg PO DAILY 02/03/25 02/03/25 Previous Rx's ?Medication ?Instructions ?Recorded hydrocodone 5 mg-acetaminophen 325 1 tab PO Q4H PRN pain 4 days #16 02/04/25 mg tablet tabs ibuprofen 800 mg tablet 800 mg PO Q8H PRN pain 14 days #40 02/04/25 tabs Allergies Allergy/AdvReac Type Severity Reaction Status Date / Time No Known Drug Allergies Allergy Verified 02/03/25 12:51 Opioid HPI Opioid Management Most Recent Opioid Data: Last Pain Scale 3 02/04/25 16:00 02/04/25 Review of Systems ROS Narrative A ten point review of systems is negative except as noted above. PFSH PFS Medical History (Updated 02/21/25 @ 15:06 by Phillip Bliss MD) Panic attacks ?F41.0 - Panic disorder [episodic paroxysmal anxiety] (ICD-10) Headache ?R51.9 - Headache, unspecified (ICD-10) Constipation ?K59.00 - Constipation, unspecified (ICD-10) Encounter for removal of skin lesion ?L98.9 - Disorder of the skin and subcutaneous tissue, unspecified (ICD-10) Bacterial vaginosis ?N76.0 - Acute vaginitis (ICD-10) ?B96.89 - Other specified bacterial agents as the cause of diseases classified elsewhere (ICD-10) UTI (urinary tract infection) ?N39.0 - Urinary tract infection, site not specified (ICD-10) Varicella zoster ?B02.9 - Zoster without complications (ICD-10) Seasonal allergies ?J30.2 - Other seasonal allergic rhinitis (ICD-10) History of bulimia ?Z86.59 - Personal history of other mental and behavioral disorders (ICD-10) Eating disorder ?F50.9 - Eating disorder, unspecified (ICD-10) ADHD ?F90.9 - Attention-deficit hyperactivity disorder, unspecified type (ICD-10) PTSD (post-traumatic stress disorder) ?F43.10 - Post-traumatic stress disorder, unspecified (ICD-10) Irritable bowel syndrome ?K58.9 - Irritable bowel syndrome, unspecified (ICD-10) Depression ?F32.A - Depression, unspecified (ICD-10) Cervical spondylosis without myelopathy ?M47.812 - Spondylosis without myelopathy or radiculopathy, cervical region (ICD-10) Seasonal affective disorder ?F33.8 - Other recurrent depressive disorders (ICD-10) Anxiety ?F41.9 - Anxiety disorder, unspecified (ICD-10) Vitamin D deficiency ?E55.9 - Vitamin D deficiency, unspecified (ICD-10) Tonsil stone ?J35.8 - Other chronic diseases of tonsils and adenoids (ICD-10) Lesion of tonsil ?J35.9 - Chronic disease of tonsils and adenoids, unspecified (ICD-10) Thickened endometrium ?R93.89 - Abnormal findings on diagnostic imaging of other specified body structures (ICD-10) OCD (obsessive compulsive disorder) ?F42.9 - Obsessive-compulsive disorder, unspecified (ICD-10) Moderate episode of recurrent major depressive disorder ?F33.1 - Major depressive disorder, recurrent, moderate (ICD-10) Mixed obsessional thoughts and acts ?F42.2 - Mixed obsessional thoughts and acts (ICD-10) Cervical kyphosis ?M40.202 - Unspecified kyphosis, cervical region (ICD-10) Hypersomnia ?G47.10 - Hypersomnia, unspecified (ICD-10) Ganglion cyst of foot ?M67.479 - Ganglion, unspecified ankle and foot (ICD-10) Chronic fatigue ?R53.82 - Chronic fatigue, unspecified (ICD-10) Contracture, left ankle ?M24.572 - Contracture, left ankle (ICD-10) Anorexia ?R63.0 - Anorexia (ICD-10) Adjustment disorder with mixed anxiety and depressed mood ?F43.23 - Adjustment disorder with mixed anxiety and depressed mood (ICD-10) Pelvic pain ?R10.2 - Pelvic and perineal pain (ICD-10) Dysfunctional uterine bleeding ?N93.8 - Other specified abnormal uterine and vaginal bleeding (ICD-10) Fibroid ?D21.9 - Benign neoplasm of connective and other soft tissue, unspecified (ICD-10) Surgical History (Updated 02/03/25 @ 12:46 by Asia Amaro NP) History of cholecystectomy ?Z90.49 - Acquired absence of other specified parts of digestive tract (ICD- 10) Family History (Updated 02/03/25 @ 13:02 by Asia Amaro NP) Other Family history of COPD (chronic obstructive pulmonary disease) Family history of cancer Family history of diabetes mellitus Family history of hypertension Family history of myocardial infarction Social History (Updated 02/03/25 @ 12:57 by Asia Amaro NP) Within the past year, how often did you have a drink containing alcohol: monthly or less Smoking status: Former smoker Non-prescribed substance use: denies use 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 General: The patient appears well and in no apparent distress. Patient is resting comfortably on cart. Skin: Warm, dry, no pallor noted. There is no rash noted. Head: Normocephalic, atraumatic Eye: Normal conjunctiva, no drainage Ears, Nose, Mouth, and Throat: oral mucosa is moist. Nares patent. Cardiovascular: Regular Rate and Rhythm Respiratory: Patient is in no distress, no accessory muscle use, lungs are aldair r to auscultation, no wheezing, rales or rhonchi Back: non-tender GI: Soft and nontender Musculoskeletal: The patient has no evidence of calf tenderness, no pitting edema, symmetrical pulses noted bilaterally Neurological: A&O, normal speech Psychiatric: Cooperative Constitutional Vital Signs, click to edit/add: Last Vital Signs Temp 98.1 F 02/21/25 14:24 Pulse 90 02/21/25 14:24 Resp 18 02/21/25 14:24 BP 124/78 02/21/25 14:24 Pulse Ox 98 02/21/25 14:24 Course Vital Signs Vital signs: Vital Signs Temperature 98.1 F 02/21/25 14:24 Pulse Rate 90 02/21/25 14:24 Respiratory Rate 18 02/21/25 14:24 Blood Pressure 124/78 02/21/25 14:24 Pulse Oximetry 98 02/21/25 14:24 Temperature 98.1 F 02/21/25 14:24 Pulse Rate 90 02/21/25 14:24 Respiratory Rate 18 02/21/25 14:24 Blood Pressure 124/78 02/21/25 14:24 Pulse Oximetry 98 02/21/25 14:24 Medical Decision Making MDM Narrative Medical decision making narrative: Urinalysis is normal. She is not . She was recently on Flagyl for bacterial vaginosis so BV is unlikely. Her symptoms could be attributed to a vaginal yeast infection and she will be treated with Diflucan here. If there is no improvement she was recommended to follow-up with her [employer] supervisor office. Treatment diagnosis and follow-up were discussed with the patient. Differential Diagnosis Differential Diagnosis: UTI, yeast vaginitis, BV Lab Data Lab results reviewed: Yes I reviewed the patient's lab results Labs: Lab Results 02/21/25 Range/Units 14:30 Urine Color Lt. yellow (YELLOW) Urine Clarity Clear (CLEAR) Urine pH 7.0 (5.0-9.0) Ur Specific [place] 1.015 (1.005-1.025) Urine Protein Negative (NEG/TRACE) mg/dL Urine Glucose (UA) Negative (NEGATIVE) mg/dL Urine Ketones Negative (NEGATIVE) mg/dL Urine Occult Blood Negative (NEGATIVE) Urine Nitrite Negative (NEGATIVE) Urine Bilirubin Negative (NEGATIVE) Urine Urobilinogen 0.2 (0.2-1.0) EU/dL Ur Leukocyte Esterase Negative (NEGATIVE) Urine RBC 0-2 (0-2) #/HPF Urine WBC 0-2 A (NONE SEEN) #/HPF Ur Squamous Epith Cells Rare (NONE/RARE) #/LPF Urine Crystals None seen (None Seen) #/HPF Urine Bacteria None seen (NONE SEEN) #/HPF Urine Casts None seen (NONE SEEN) #/LPF Urine Mucus None seen (NONE SEEN) Ur Culture Indicated? No Urine HCG, Qual Negative (NEGATIVE) Discharge Plan Discharge Chief Complaint: Urogenital-Female Clinical Impression: Vaginitis Patient Disposition: Home, Self-Care Time of Disposition Decision: 15:06 Condition: Good Mode of Transportation: Private Vehicle Prescriptions / Home Meds: No Action bupropion HCl 300 mg tablet extended release 24 hr 300 mg PO DAILY prednisone 20 mg tablet 20 mg PO DAILY escitalopram oxalate 20 mg tablet 20 mg PO DAILY nitrofurantoin monohyd/m-cryst 100 mg capsule 100 mg PO BID diphenhydramine HCl [Benadryl] 25 mg capsule 25 mg PO Q4H PRN (Reason: itching) hydrocodone-acetaminophen 5-325 mg tablet 1 tab PO Q4H PRN (Reason: pain) 4 Days Qty: 16 0RF ibuprofen 800 mg tablet 800 mg PO Q8H PRN (Reason: pain) 14 Days Qty: 40 0RF Print Language: Icelandic Instructions: Dysuria (ED) Referrals: SANDIE MEADOWS [Primary Care Provider] - 1 week
[2025-02-21 15:02] LABS: Bacteria Urine NONE SEEN #/HPF (NONE SEEN); Cast Seen? NONE SEEN #/LPF (NONE SEEN); Crystals Seen? None Seen #/HPF (None Seen); Mucus Urine NONE SEEN (NONE SEEN); RBC Urine 0-2 #/HPF (0-2); Squamous Epithelial Cell Urine RARE #/LPF (NONE/RARE); WBC Urine 0-2 #/HPF (NONE SEEN)
[2025-02-21 15:03] LABS: Urine Culture Indicated NO
[2025-02-21] MEDS: FLUCONAZOLE 150 MG TABLET PO (15:16)
== END 2025-02-21 15:21 | disposition home or self-care (01) ==
PROVIDERS: Emergency Provider Emergency Medicine; PCP Family Medicine
DX: N76.0 Acute vaginitis (principal); Z87.440 Personal history of urinary (tract) infections; Z90.49 Acquired absence of other specified parts of digestive tract; Z87.891 Personal history of nicotine dependence
CPT/HCPCS: 81001; 84703; 99283